=== PATIENT | female | born 1975 | race Caucasian/White ===

== ENCOUNTER 2016-12-26 08:37 | Inpatient (IN) | payer BC ==
[~2016-12-26] VITALS: Ht 157.5 cm; Wt 47.6 kg
[2016-12-26] VITALS (7 sets, daily range): BP systolic 95–134; BP diastolic 60–79
[~2016-12-26 08:37] MED LIST: AZITHROMYCIN250 MG ORAL; CRESTOR10 M1 ORAL
[2016-12-26] MEDS ORDERED: NKM (08:48)
[2016-12-26] MEDS ORDERED: LORazepam Inj 2mg/ml 1ml IV ONE (09:00)
[2016-12-26] MEDS ORDERED: DiphenhydrAMINE 50mg/ml Inj IVP ONE (09:00)
[2016-12-26] MEDS ORDERED: Metoclopramide 10mg/2ml Inj IVP ONE (09:00)
--- NOTE | 2016-12-26 09:03 | Emergency Room Report ---
History of Present Illness General Chief Complaint: Nausea, Vomiting, and Diarrhea Source: Patient Present Illness HPI Patient presents with complaints of increased vomiting She has had several episodes of vomiting for the past 2 days Denies any diarrhea she has discomfort across the bilateral upper abdomen as well Denies any fevers She also however feels her kidneys are hurting Patient had a recent significant traveling including out of the country in [place] Denies any rash Denies any fall or trauma With the increased vomiting and nausea patient presents to the ER bilateral upper abdomen pain is described as 5/10 cramping in nature Allergies: Coded Allergies: PEANUT (Unverified Allergy, Unknown, 07/26/14) SESAME OIL (Unverified Allergy, Unknown, 12/26/16) Patient History Past Medical History: see triage record Pertinent Family History: none Last Menstrual Period: 12/19/2016 Now: No : 0 Para: 0 Reviewed Nursing Documentation: PMH: Agreed, PSxH: Agreed Nursing Documentation-PMH Hx Cardiac Problems: Yes - high chol Hx Cancer: Yes - lymph nodes Review of Systems All Other Systems: negative except mentioned in HPI Physical Exam Vital Signs Date Time Temp Pulse Resp B/P Pulse Ox O2 Delivery O2 Flow Rate FiO2 12/26/16 08:42 97.2 131 24 118/75 99 Room Air Sp02 EP Interpretation: reviewed, normal General Appearance: mild distress - Patient appeared anxious Head: normocephalic, atraumatic Eyes: bilateral eye EOMI, bilateral eye PERRL ENT: hearing grossly normal, normal pharynx, TMs + canals normal, uvula midline Neck: full range of motion, supple, no meningismus, no bony tend Respiratory: lungs clear, normal breath sounds, no rhonchi, no respiratory distress, no retraction, no accessory muscle use Cardiovascular #1: normal peripheral pulses, regular rate, rhythm, no edema, no gallop, no JVD, no murmur Gastrointestinal: normal bowel sounds, soft, no mass, no organomegaly, non- distended, no guarding, no hernia, no pulsatile mass, no rebound, tenderness - Mainly epigastric mild discomfort right upper quadrant Genitourinary: no CVA tenderness Musculoskeletal: normal inspection Neurologic: oriented x3, responsive, human services instructor III-XII nml as tested, motor strength/ tone normal, sensory intact Psychiatric: mood/affect normal Skin: normal color, no rash, warm/dry, palpation normal Lymphatic: normal inspection, no adenopathy Medical Decision Making Diagnostic Impression: Primary Impression: Nausea, vomiting, and diarrhea Additional Impressions: Acute pancreatitis Abdominal pain Gallstone pancreatitis ER Course With the patient's history and examination, multiple differentials considered, including but not limited to , ectopic , ovarian torsion, gastritis, cholecystitis, pancreatitis, appendicitis Patient's blood work reveals elevated liver function test, along with increased lipase Ultrasound did not show any obvious stones The total bili is also not significantly elevated recent question of the etiology of the significantly elevated lipase Differentials such as carcinoma also considered Patient had a GI consultation performed the emergency room Has done significantly better with acute intervention and admitted for further care, Labs Test 12/26/16 09:04 12/26/16 11:58 12/27/16 05:45 White Blood Count 8.5 K/UL (4.8-10.8) 5.0 K/UL (4.8-10.8) Red Blood Count 4.33 M/UL (4.20-5.40) 3.37 M/UL (4.20-5.40) Hemoglobin 15.0 G/DL (12.0-16.0) 11.6 G/DL (12.0-16.0) Hematocrit 48.0 % (37.0-47.0) 35.2 % (37.0-47.0) Mean Corpuscular Volume 111 FL (80-99) 105 FL (80-99) Mean Corpuscular Hemoglobin 34.6 PG (27.0-31.0) 34.6 PG (27.0-31.0) Mean Corpuscular Hemoglobin Concent 31.3 G/DL (32.0-36.0) 33.0 G/DL (32.0-36.0) Red Cell Distribution Width 11.3 % (11.6-14.8) 10.5 % (11.6-14.8) Platelet Count 88 K/UL (150-450) 53 K/UL (150-450) Mean Platelet Volume 6.7 FL (6.5-10.1) 9.4 FL (6.5-10.1) Neutrophils (%) (Auto) % (45.0-75.0) % (45.0-75.0) Lymphocytes (%) (Auto) % (20.0-45.0) % (20.0-45.0) Monocytes (%) (Auto) % (1.0-10.0) % (1.0-10.0) Eosinophils (%) (Auto) % (0.0-3.0) % (0.0-3.0) Basophils (%) (Auto) % (0.0-2.0) % (0.0-2.0) Differential Total Cells Counted 100 Neutrophils % (Manual) 89 % (45-75) Lymphocytes % (Manual) 7 % (20-45) Monocytes % (Manual) 2 % (1-10) Eosinophils % (Manual) 2 % (0-3) Basophils % (Manual) 0 % (0-2) Band Neutrophils 0 % (0-8) Platelet Estimate Decreased Platelet Morphology Normal Red Blood Cell Morphology Normal Sodium Level 136 mEQ/L (135-145) Potassium Level 4.7 mEQ/L (3.4-4.9) Chloride Level 86 mEQ/L (98-107) Carbon Dioxide Level 7 mEQ/L (20-30) Anion Gap 43 (5-15) Blood Urea Nitrogen 17 mg/dL (7-23) Creatinine 1.3 mg/dL (0.5-0.9) Estimat Glomerular Filtration Rate 45.6 mL/min (>60) Glucose Level 199 mg/dL (74-106) Calcium Level 9.7 mg/dL (8.6-10.2) Total Bilirubin 0.9 mg/dL (0.0-1.2) Aspartate Amino Transf (AST/SGOT) 212 U/L (5-40) Alanine Aminotransferase (ALT/SGPT) 128 U/L (3-33) Alkaline Phosphatase 174 U/L (35-104) Total Protein 9.8 g/dL (6.6-8.7) Albumin 5.5 g/dL (3.5-5.2) Globulin 4.3 g/dL Albumin/Globulin Ratio 1.2 (1.0-2.7) Triglycerides Level 263 mg/dL (< 150) Cholesterol Level 382 mg/dL (< 200) LDL Cholesterol 195 mg/dL (60-99) HDL Cholesterol 134 mg/dL (> 60) Cholesterol/HDL Ratio 2.9 (3.3-4.4) Lipase > 3000 U/L (< 60) Human Chorionic Gonadotropin, Quant < 1 mIU/mL Urine Color Yellow Urine Appearance Clear Urine pH 5 (4.5-8.0) Urine Specific [place] 1.020 (1.005-1.035) Urine Protein 2+ (NEGATIVE) Urine Glucose (UA) 3+ (NEGATIVE) Urine Ketones 4+ (NEGATIVE) Urine Occult Blood 4+ (NEGATIVE) Urine Nitrite Negative (NEGATIVE) Urine Bilirubin Negative (NEGATIVE) Urine Urobilinogen Normal MG/DL (0.0-1.0) Urine Leukocyte Esterase Negative (NEGATIVE) Urine RBC 5-10 /HPF (0 - 2) Urine WBC 0-2 /HPF (0 - 2) Urine Squamous Epithelial Cells Few /LPF (NONE/OCC) Urine Bacteria Occasional /HPF (NONE) Urine Opiates Screen Negative (NEGATIVE) Urine Barbiturates Screen Negative (NEGATIVE) Phencyclidine (PCP) Screen Negative (NEGATIVE) Urine Amphetamines Screen Negative (NEGATIVE) Urine Benzodiazepines Screen Negative (NEGATIVE) Urine Cocaine Screen Negative (NEGATIVE) Urine Marijuana (THC) Screen Negative (NEGATIVE) Activated Partial Thromboplast Time 28 SEC (23-33) Hemoglobin A1c 4.4 % (< 6.0) Carcinoembryonic Antigen 2.2 ng/mL EKG Diagnostic Results Rate: tachycardiac Rhythm: NSR ST Segments: no acute changes Rhythm Strip Diag. Results EP Interpretation: yes Rate: 99 Rhythm: NSR, no PVC's, no ectopy Chest X-Ray Diagnostic Results EP Interpretation: Yes Findings: no consolidation, no effusion, no pneumothorax Number of Views: 1 CT/MRI/US Diagnostic Results CT/MRI/US Diagnostic Results : Impression Abdominal ultrasound: Liver demonstrates diffuse increased echogenicity consistent with diffuse hepatocellular disease, most likely fatty changes Last Vital Signs Date Time Temp Pulse Resp B/P Pulse Ox O2 Delivery O2 Flow Rate FiO2 12/26/16 08:42 97.2 131 24 118/75 99 Room Air Status: improved Disposition: ADMITTED INPATIENT Condition: Serious Referrals: NOT CHOSEN RUBEN/,REFERRING (PCP) ULISES SOTELO D.O. Dec 26, 2016 09:03
[2016-12-26 09:33] LABS: MEAN CORPUSCULAR HEMOGLOBIN 34.6 PG (27.0-31.0); MEAN CORPUSCULAR HGB CONC 31.3 G/DL (32.0-36.0); MEAN CORPUSCULAR VOLUME 111 FL (80-99); MEAN PLATELET VOLUME 6.7 FL (6.5-10.1); PLATELET COUNT 88 K/UL (150-450); RED BLOOD COUNT 4.33 M/UL (4.20-5.40); RED CELL DISTRIBUTION WIDTH 11.3 % (11.6-14.8); WHITE BLOOD COUNT 8.5 K/UL (4.8-10.8)
[2016-12-26 09:43] LABS: ALANINE AMINOTRANSFERASE 128 U/L (3-33); ALBUMIN/GLOBULIN RATIO 1.2 (1.0-2.7); ANION GAP 43 (5-15); ASPARTATE AMINO TRANSFERASE 212 U/L (5-40); CALCIUM 9.7 mg/dL (8.6-10.2); CHLORIDE 86 mEQ/L (98-107); CREATININE 1.3 mg/dL (0.5-0.9); GLOMERULAR FILTRATION RATE 45.6 mL/min (>60); HEMOLYSIS 7; POTASSIUM 4.7 mEQ/L (3.4-4.9); SODIUM 136 mEQ/L (135-145); TOTAL PROTEIN 9.8 g/dL (6.6-8.7)
[2016-12-26 09:53] LABS: CARBON DIOXIDE 7 mEQ/L (20-30)
[2016-12-26 10:32] LABS: BAND NEUTROPHILS % (MANUAL) 0 % (0-8); BASOPHILS % (MANUAL) 0 % (0-2); EOSINOPHILS % (MANUAL) 2 % (0-3); LYMPHOCYTES % (MANUAL) 7 % (20-45); NEUTROPHILS % (MANUAL) 89 % (45-75); PLATELET ESTIMATE DECREASED; PLATELET MORPHOLOGY NORMAL; TOTAL CELLS COUNTED 100
[2016-12-26 10:35] LABS: LIPASE > 3000 U/L (< 60)
[2016-12-26] MEDS ORDERED: Piperacillin/Tazobactam 3.375 GM in NS 110 ML IVPB ONE (11:15)
[2016-12-26] MEDS ORDERED: Zosyn 3.375gm inj ONE (11:33)
[2016-12-26 12:52] LABS: APPEARANCE,URINE CLEAR; KETONES,URINE 4+ (NEGATIVE); LEUKOCYTE ESTERASE ,URINE NEGATIVE (NEGATIVE); NITRITE,URINE NEGATIVE (NEGATIVE); PH,URINE 5 (4.5-8.0); PROTEIN,URINE 2+ (NEGATIVE); UROBILINOGEN,URINE NORMAL MG/DL (0.0-1.0)
[2016-12-26 13:15] LABS: BACTERIA,URINE OCCASIONAL /HPF; SQUAMOUS EPITHELIAL CELL,UR FEW /LPF (NONE/OCC); WBC,URINE 0-2 /HPF (0 - 2)
[2016-12-26] MEDS ORDERED: Nitroglycerin Subl 0.4mg tab (Bottle Of 25) SL PRN (13:15)
[2016-12-26] MEDS ORDERED: Mylanta II UD 30ml ORAL PRN (13:15)
[2016-12-26] MEDS ORDERED: Miralax 17gm pkt ORAL PRN (13:15)
[2016-12-26 13:40] LABS: CHOLESTEROL/HDL RATIO 2.9 (3.3-4.4)
--- NOTE | 2016-12-26 14:09 | GI Initial Consult Note ---
History of Present Illness General Date patient seen: Dec 26, 2016 Time patient seen: 13:55 Reason for Hospitalization: Nausea, Vomiting, and Diarrhea Referring physician: JEREMIAH MARTIN Reason for Consultation: PANCREATITIS Present Illness HPI Patient presents with complaints of increased vomiting She has had several episodes of vomiting for the past 2 days Denies any diarrhea she has discomfort across the bilateral upper abdomen as well Denies any fevers She also however feels her kidneys are hurting Patient had a recent significant traveling including out of the country in [place] Denies any rash Denies any fall or trauma With the increased vomiting and nausea patient presents to the ER bilateral upper abdomen pain is described as 5/10 cramping in nature. GI CONSULT: HPI as noted above. GI consulted for pancreatitis. Pt seen on floor, A&Ox4 anxious from pain. C/o of generalized abdominal pain sharp in nature with radiation to the back. No active s/sx of N/V at this time. Denies any diarrhea. Abdomen U/S taken. She presents today with abnormal LFTs, extreme lipase elevation > 3000, and elevated triglyceride levels. No prior history of any endoscopic procedures. Home Meds Active Scripts Azithromycin* (ZITHROMAX*) 250 Mg Tablet, 250 MG ORAL DAILY for 5 Days, TAB Prov:RENATA WHITTINGTON P.A. 07/26/14 Reported Medications No Known Medications* (NKM - No Known Medications*) ., 0 ., 0 Refills 12/26/16 Rosuvastatin Calcium (Crestor) 10 Mg Tab, MG ORAL DAILY, TAB 07/26/14 Med list reviewed/reconciled: Yes Allergies: Coded Allergies: PEANUT (Unverified Allergy, Unknown, 07/26/14) Patient History History Provided By: Patient, Medical Record PMH Narrative Past Medical History: see triage record Pertinent Family History: colon CA, breast CA Last Menstrual Period: 12/19/2016 Now: No : 0 Para: 0 Reviewed Nursing Documentation: PMH: Agreed, PSxH: Agreed Nursing Documentation-PMH Hx Cardiac Problems: Yes - high chol Hx Cancer: Yes - lymph nodes Social History: Reports: alcohol use - last drink x 2 days, glass of wine, drug use - denies, smoking - social Review of Systems All Other Systems: negative except mentioned in HPI Physical Exam Vital Signs Date Time Temp Pulse Resp B/P Pulse Ox O2 Delivery O2 Flow Rate FiO2 12/26/16 08:42 97.2 131 24 118/75 99 Room Air Sp02 EP Interpretation: reviewed Labs Laboratory Tests Test 12/26/16 09:04 12/26/16 11:58 White Blood Count 8.5 K/UL (4.8-10.8) Red Blood Count 4.33 M/UL (4.20-5.40) Hemoglobin 15.0 G/DL (12.0-16.0) Hematocrit 48.0 % (37.0-47.0) H Mean Corpuscular Volume 111 FL (80-99) H Mean Corpuscular Hemoglobin 34.6 PG (27.0-31.0) H Mean Corpuscular Hemoglobin Concent 31.3 G/DL (32.0-36.0) L Red Cell Distribution Width 11.3 % (11.6-14.8) L Platelet Count 88 K/UL (150-450) L Mean Platelet Volume 6.7 FL (6.5-10.1) Neutrophils (%) (Auto) % (45.0-75.0) Lymphocytes (%) (Auto) % (20.0-45.0) Monocytes (%) (Auto) % (1.0-10.0) Eosinophils (%) (Auto) % (0.0-3.0) Basophils (%) (Auto) % (0.0-2.0) Differential Total Cells Counted 100 Neutrophils % (Manual) 89 % (45-75) H Lymphocytes % (Manual) 7 % (20-45) L Monocytes % (Manual) 2 % (1-10) Eosinophils % (Manual) 2 % (0-3) Basophils % (Manual) 0 % (0-2) Band Neutrophils 0 % (0-8) Platelet Estimate Decreased L Platelet Morphology Normal Red Blood Cell Morphology Normal Sodium Level 136 mEQ/L (135-145) Potassium Level 4.7 mEQ/L (3.4-4.9) Chloride Level 86 mEQ/L (98-107) L Carbon Dioxide Level 7 mEQ/L (20-30) *L Anion Gap 43 (5-15) H Blood Urea Nitrogen 17 mg/dL (7-23) Creatinine 1.3 mg/dL (0.5-0.9) H Estimat Glomerular Filtration Rate 45.6 mL/min (>60) Glucose Level 199 mg/dL (74-106) H Calcium Level 9.7 mg/dL (8.6-10.2) Total Bilirubin 0.9 mg/dL (0.0-1.2) Aspartate Amino Transf (AST/SGOT) 212 U/L (5-40) H Alanine Aminotransferase (ALT/SGPT) 128 U/L (3-33) H Alkaline Phosphatase 174 U/L (35-104) H Total Protein 9.8 g/dL (6.6-8.7) H Albumin 5.5 g/dL (3.5-5.2) H Globulin 4.3 g/dL Albumin/Globulin Ratio 1.2 (1.0-2.7) Triglycerides Level 263 mg/dL (< 150) H Cholesterol Level 382 mg/dL (< 200) H LDL Cholesterol 195 mg/dL (60-99) H HDL Cholesterol 134 mg/dL (> 60) H Cholesterol/HDL Ratio 2.9 (3.3-4.4) L Lipase > 3000 U/L (< 60) H Human Chorionic Gonadotropin, Quant < 1 mIU/mL Urine Color Yellow Urine Appearance Clear Urine pH 5 (4.5-8.0) Urine Specific [place] 1.020 (1.005-1.035) Urine Protein 2+ (NEGATIVE) H Urine Glucose (UA) 3+ (NEGATIVE) H Urine Ketones 4+ (NEGATIVE) H Urine Occult Blood 4+ (NEGATIVE) H Urine Nitrite Negative (NEGATIVE) Urine Bilirubin Negative (NEGATIVE) Urine Urobilinogen Normal MG/DL (0.0-1.0) Urine Leukocyte Esterase Negative (NEGATIVE) Urine RBC 5-10 /HPF (0 - 2) H Urine WBC 0-2 /HPF (0 - 2) Urine Squamous Epithelial Cells Few /LPF (NONE/OCC) Urine Bacteria Occasional /HPF (NONE) General Appearance: well appearing, no apparent distress, alert, thin, other - anxious Head: normocephalic EENT: normal ENT inspection Neck: full range of motion, supple Respiratory: normal breath sounds, no respiratory distress Cardiovascular: normal peripheral pulses, normal rate, regularly irregular Gastrointestinal: normal inspection, soft, tenderness - generalized Rectal: deferred Musculoskeletal: normal inspection Neurologic: normal inspection, alert, oriented x3, responsive Psychiatric: normal inspection, judgement/insight normal, memory normal Skin: normal inspection, normal color, no rash, warm/dry Lymphatic: normal inspection, no adenopathy Current Medications Current Medications Medications (Trade) Dose Ordered Sig/Huma Route PRN Reason Start Time Stop Time Status Last Admin Dose Admin Acetaminophen (Tylenol) 650 mg Q4H PRN ORAL T>100.5 12/26/16 13:15 01/25/17 13:14 Al Hydroxide/Mg Hydroxide (Mylanta II) 30 ml Q6H PRN ORAL dyspepsia 12/26/16 13:15 01/25/17 13:14 Dextrose STAT PRN IV Hypoglycemia 12/26/16 13:15 01/25/17 13:14 Dextrose/Sodium Chloride (D5 0.45% NS) 1,000 ml @ 75 mls/hr [id number] IV 12/26/16 14:00 01/25/17 13:59 Diphenhydramine HCl (Benadryl) 25 mg Q6H PRN ORAL Itching/Pruritis 12/26/16 13:15 01/25/17 13:14 Heparin Sodium (Porcine) (Heparin 5000 units/ml) 5,000 units EVERY 12 HOURS SUBQ 12/27/16 09:00 01/26/17 08:59 Morphine Sulfate (Morphine Sulfate) 2 mg Q4H PRN IVP Severe Pain (Pain Scale 7-10) 12/26/16 13:15 01/02/17 13:14 Nitroglycerin (Ntg) 0.4 mg Q5M X 3 DOSES PRN SL Prn Chest Pain 12/26/16 13:15 01/25/17 13:14 Ondansetron HCl (Zofran) 4 mg Q6H PRN IVP Nausea & Vomiting 12/26/16 13:15 01/25/17 13:14 Piperacillin Sod/ Tazobactam Sod/ Sodium Chloride (Zosyn/Sodium Chloride) 110 ml @ 27.5 mls/hr EVERY 8 HOURS IVPB 12/26/16 19:00 01/02/17 18:59 Polyethylene Glycol (Miralax) 17 gm HSPRN PRN ORAL Constipation 12/26/16 13:15 01/25/17 13:14 Temazepam (Restoril) 15 mg HSPRN PRN ORAL Insomnia 12/26/16 21:00 01/02/17 20:59 GI: Plan Problems: (1) Acute pancreatitis (2) Abdominal pain (3) High triglycerides (4) Malnutrition Plan elevated triglyceride >> 263 H elevated lipase >> +3000 HCG negative initial impression: acute pancreatitis 2/2 elevated triglycerides fu abdominal U/S maintain NPO + IVFs, ice chips okay ordered CEA, utox, HgA1C lipid panel reviewed monitor LFTs dietary consult H2 pain mgmt abx Discussed with Dr. Holt. Thank you for referring this patient, we will follow. Yaritza Marroquin N.P. Dec 26, 2016 14:09
[2016-12-26] MEDS: Morphine Sulfate 2mg/ml Inj IVP PRN ×3 (14:14→23:23)
[2016-12-26] MEDS: D5 1/2NS 1,000 ML IV SCH (14:14)
[2016-12-26] MEDS: Piperacillin/Tazobactam 3.375 GM in NS 110 ML IVPB SCH (18:23)
[2016-12-26] MEDS ORDERED: Famotidine 20 MG/ 2ML VIAL IVP SCH (21:00)
[2016-12-27] MEDS: Morphine Sulfate 2mg/ml Inj IVP PRN ×3 (03:29→16:59)
[2016-12-27 04:00] VITALS: BP 107/73
[2016-12-27] MEDS: Piperacillin/Tazobactam 3.375 GM in NS 110 ML IVPB SCH ×3 (05:04→21:30)
[2016-12-27] MEDS: D5 1/2NS 1,000 ML IV SCH ×2 (05:04→16:00)
[2016-12-27 07:25] LABS: MEAN CORPUSCULAR HEMOGLOBIN 34.6 PG (27.0-31.0); MEAN CORPUSCULAR VOLUME 105 FL (80-99); MEAN PLATELET VOLUME 9.4 FL (6.5-10.1); PLATELET COUNT 53 K/UL (150-450); RED BLOOD COUNT 3.37 M/UL (4.20-5.40); RED CELL DISTRIBUTION WIDTH 10.5 % (11.6-14.8)
[2016-12-27 08:00] VITALS: BP 102/66
[2016-12-27 08:51] LABS: INR 1.1 (0.9-1.1); PROTHROMBIN TIME 11.2 SEC (9.30-11.50)
[2016-12-27] MEDS ORDERED: Heparin 5000 units/ml inj SUBQ SCH (09:00)
[2016-12-27 11:00] LABS: BAND NEUTROPHILS % (MANUAL) 0 % (0-8); BASOPHILS % (MANUAL) 0 % (0-2); EOSINOPHILS % (MANUAL) 1 % (0-3); LYMPHOCYTES % (MANUAL) 16 % (20-45); NEUTROPHILS % (MANUAL) 80 % (45-75); PLATELET ESTIMATE DECREASED; PLATELET MORPHOLOGY NORMAL; TOTAL CELLS COUNTED 100
[2016-12-27 11:01] LABS: HYPOCHROMASIA 1+; MACROCYTES 1+
--- NOTE | 2016-12-27 11:08 | Consultation ---
History of Present Illness General Date patient seen: Dec 27, 2016 Chief Complaint: Nausea, Vomiting, and Diarrhea Referring physician: dr Gates Reason for Consultation: PANCREATITIS Present Illness HPI 41 year old female without any pmhx presented to ER with the increased vomiting and nausea, bilateral upper abdomen pain, cramping. She has had several episodes of vomiting for the past 2 days Denies any diarrhea she has discomfort across the bilateral upper abdomen as well. She was diagnosed to have acute pancreatitis and admitted for further care. Allergies: Coded Allergies: PEANUT (Unverified Allergy, Unknown, 07/26/14) SESAME OIL (Unverified Allergy, Unknown, 12/26/16) Medication History Scheduled Azithromycin* (Zithromax*), 250 MG ORAL DAILY No Known Medications* (NKM - No Known Medications*), 0 ., (Reported) Rosuvastatin Calcium (Crestor), MG ORAL DAILY, (Reported) Patient History Healthcare decision maker Resuscitation status Advanced Directive on File Past Medical/Surgical History Past Medical/Surgical History: (1) High triglycerides Review of Systems Gastrointestinal: Reports: abdominal pain, nausea, vomiting All Other Systems: negative except mentioned in HPI Physical Exam General Appearance: WD/WN, alert Lines, tubes and drains: peripheral HEENT: atraumatic Neck: non-tender, supple Respiratory/Chest: chest wall non-tender, normal breath sounds Cardiovascular/Chest: normal peripheral pulses, normal rate Last 24 Hour Vital Signs Date Time Temp Pulse Resp B/P Pulse Ox O2 Delivery O2 Flow Rate FiO2 12/27/16 08:00 97.5 66 16 102/66 99 Room Air 12/27/16 04:00 70 12/27/16 04:00 96.8 67 20 107/73 98 Room Air 12/27/16 00:00 71 12/26/16 23:42 98.1 77 20 111/70 98 Room Air 12/26/16 20:00 98.2 80 20 95/63 99 Room Air 12/26/16 20:00 81 12/26/16 16:00 95 12/26/16 16:00 99.0 94 20 113/60 100 Room Air 12/26/16 14:00 97.6 106 18 132/71 100 Room Air 12/26/16 13:45 107 12/26/16 13:22 97.2 104 23 110/75 100 Room Air 12/26/16 12:32 97.2 104 23 110/75 100 Room Air Intake and Output 12/26/16 12/27/16 19:00 07:00 Intake Total 2300 ml 887.5 ml Balance 2300 ml 887.5 ml Intake IV Total 300 ml 887.5 ml Other 2000 ml # Voids 1 Laboratory Tests Test 12/26/16 11:58 12/27/16 05:45 12/27/16 09:00 Urine Color Yellow Urine Appearance Clear Urine pH 5 (4.5-8.0) Urine Specific [place] 1.020 (1.005-1.035) Urine Protein 2+ (NEGATIVE) H Urine Glucose (UA) 3+ (NEGATIVE) H Urine Ketones 4+ (NEGATIVE) H Urine Occult Blood 4+ (NEGATIVE) H Urine Nitrite Negative (NEGATIVE) Urine Bilirubin Negative (NEGATIVE) Urine Urobilinogen Normal MG/DL (0.0-1.0) Urine Leukocyte Esterase Negative (NEGATIVE) Urine RBC 5-10 /HPF (0 - 2) H Urine WBC 0-2 /HPF (0 - 2) Urine Squamous Epithelial Cells Few /LPF (NONE/OCC) Urine Bacteria Occasional /HPF (NONE) Urine Opiates Screen Negative (NEGATIVE) Urine Barbiturates Screen Negative (NEGATIVE) Phencyclidine (PCP) Screen Negative (NEGATIVE) Urine Amphetamines Screen Negative (NEGATIVE) Urine Benzodiazepines Screen Negative (NEGATIVE) Urine Cocaine Screen Negative (NEGATIVE) Urine Marijuana (THC) Screen Negative (NEGATIVE) White Blood Count 5.0 K/UL (4.8-10.8) Red Blood Count 3.37 M/UL (4.20-5.40) L Hemoglobin 11.6 G/DL (12.0-16.0) L Hematocrit 35.2 % (37.0-47.0) L Mean Corpuscular Volume 105 FL (80-99) H Mean Corpuscular Hemoglobin 34.6 PG (27.0-31.0) H Mean Corpuscular Hemoglobin Concent 33.0 G/DL (32.0-36.0) Red Cell Distribution Width 10.5 % (11.6-14.8) L Platelet Count 53 K/UL (150-450) L Mean Platelet Volume 9.4 FL (6.5-10.1) Neutrophils (%) (Auto) % (45.0-75.0) Lymphocytes (%) (Auto) % (20.0-45.0) Monocytes (%) (Auto) % (1.0-10.0) Eosinophils (%) (Auto) % (0.0-3.0) Basophils (%) (Auto) % (0.0-2.0) Differential Total Cells Counted 100 Neutrophils % (Manual) 80 % (45-75) H Lymphocytes % (Manual) 16 % (20-45) L Monocytes % (Manual) 3 % (1-10) Eosinophils % (Manual) 1 % (0-3) Basophils % (Manual) 0 % (0-2) Band Neutrophils 0 % (0-8) Platelet Estimate Decreased L Platelet Morphology Normal Hypochromasia 1+ Macrocytosis 1+ Erythrocyte Sedimentation Rate 40 MM/HR (0-20) H Prothrombin Time 11.2 SEC (9.30-11.50) Prothromb Time International Ratio 1.1 (0.9-1.1) Activated Partial Thromboplast Time 28 SEC (23-33) Hemoglobin A1c 4.4 % (< 6.0) Iron Level 115 ug/dL (37-145) Total Iron Binding Capacity 239 ug/dL (250-400) L Percent Iron Saturation 48 % (15-50) Unsaturated Iron Binding 124 ug/dL (112-346) Ferritin 567 ng/mL (13-150) H Ammonia 44 umol/L (11-51) Lactate Dehydrogenase 284 U/L (135-230) H Amylase Level 537 U/L (10-110) *H Lipase 1895 U/L (< 60) H Carcinoembryonic Antigen 2.2 ng/mL CA 19-9 Antigen 48.75 U/mL (< 37) H CA 125 Antigen Pending Hepatitis A IgM Antibody Pending Hepatitis B Surface Antigen Pending Hepatitis B Core IgM Antibody Pending Hepatitis C Antibody Pending HIV (1&2) Antibody Rapid Negative (NEGATIVE) Height (Feet): 5 Height (Inches): 2.00 Weight (Pounds): 105 Medications Current Medications Medications (Trade) Dose Ordered Sig/Huma Route PRN Reason Start Time Stop Time Status Last Admin Dose Admin Acetaminophen (Tylenol) 650 mg Q4H PRN ORAL T>100.5 12/26/16 13:15 01/25/17 13:14 Al Hydroxide/Mg Hydroxide (Mylanta II) 30 ml Q6H PRN ORAL dyspepsia 12/26/16 13:15 01/25/17 13:14 Dextrose STAT PRN IV Hypoglycemia 12/26/16 13:15 01/25/17 13:14 Dextrose/Sodium Chloride (D5 0.45% NS) 1,000 ml @ 75 mls/hr [id number] IV 12/26/16 14:00 01/25/17 13:59 12/27/16 05:04 Diphenhydramine HCl (Benadryl) 25 mg Q6H PRN ORAL Itching/Pruritis 12/26/16 13:15 01/25/17 13:14 Famotidine (Pepcid I.v.) 20 mg QHS IVP 12/26/16 21:00 01/25/17 20:59 12/26/16 20:04 Heparin Sodium (Porcine) (Heparin 5000 units/ml) 5,000 units EVERY 12 HOURS SUBQ 12/27/16 09:00 01/26/17 08:59 Morphine Sulfate (Morphine Sulfate) 2 mg Q4H PRN IVP Severe Pain (Pain Scale 7-10) 12/26/16 13:15 01/02/17 13:14 12/27/16 07:54 Nitroglycerin (Ntg) 0.4 mg Q5M X 3 DOSES PRN SL Prn Chest Pain 12/26/16 13:15 01/25/17 13:14 Ondansetron HCl (Zofran) 4 mg Q6H PRN IVP Nausea & Vomiting 12/26/16 13:15 01/25/17 13:14 12/27/16 03:35 Piperacillin Sod/ Tazobactam Sod/ Sodium Chloride (Zosyn/Sodium Chloride) 110 ml @ 27.5 mls/hr EVERY 8 HOURS IVPB 12/26/16 19:00 01/02/17 18:59 12/27/16 05:04 Polyethylene Glycol (Miralax) 17 gm HSPRN PRN ORAL Constipation 12/26/16 13:15 01/25/17 13:14 Temazepam (Restoril) 15 mg HSPRN PRN ORAL Insomnia 12/26/16 21:00 01/02/17 20:59 Assessment/Plan Problem List: (1) Acute pancreatitis ICD Codes: K85.90 - Acute pancreatitis without necrosis or infection, unspecified SNOMED: 966896438 (2) High triglycerides ICD Codes: E78.1 - Pure hyperglyceridemia SNOMED: 163544677 (3) Nausea, vomiting, and diarrhea ICD Codes: R11.2 - Nausea with vomiting, unspecified; R19.7 - Diarrhea, unspecified SNOMED: 7848413 Assessment/Plan NPO symptomatic treatment f/u lipase level IV fluids check electrolytes JEREMIAH PATTERSON Dec 27, 2016 11:08
[2016-12-27 11:21] VITALS: BP 101/67
--- NOTE | 2016-12-27 12:09 | History and Physical Report ---
DATE OF ADMISSION: 12/26/2016 TIME SEEN: At 8.00 a.m. CONSULTANTS: 1. Villa Holt M.D. 2. Adriel Blankenship M.D. CHIEF COMPLAINT: Abdominal pain, nausea, vomiting x2 days, gallstone pancreatitis. BRIEF HISTORY: This is a 41-year-old female who lives at home presents to [facility] with above-mentioned diagnoses, admitted to medical floor for further treatment. Currently feeling little bit and slight abdominal discomfort. No complaints. PAST MEDICAL HISTORY: Includes nothing. PAST SURGICAL HISTORY: Ankle, foot, and knee. MEDICATIONS: Include heparin, temazepam, famotidine, Zosyn, Tylenol, morphine, MiraLAX, Zofran, Benadryl, Mylanta. ALLERGIES: Denies. SOCIAL HISTORY: Positive smoke. Positive alcohol. No intravenous drug use. FAMILY HISTORY: Noncontributory. REVIEW OF SYSTEMS: No chest pain/shortness of breath. Slight nausea, vomiting. No diarrhea. PHYSICAL EXAMINATION: GENERAL: Calm in bed, alert and oriented x3. No acute distress. VITAL SIGNS: Shows temperature 96 degrees, pulse 67, respirations 20, and blood pressure 107/73. CARDIOVASCULAR: No murmur. LUNGS: Poor air exchange. ABDOMEN: Bowel sounds are positive. Soft, but slight tender. No guarding. No rigidity. No rebound. EXTREMITIES: No cyanosis, clubbing, or edema. NEUROLOGIC: Cranial nerves II through XII are grossly intact. Deep tendon reflexes are 2+. Muscle strength is 5/5. LABORATORY DATA: Platelets are 88,000 and otherwise normal. BMP shows CO2 7, creatinine is 1.3, glucose 199. ALT is 128, AST 212, triglycerides 263, lipase greater than 3000. PTT is 28. Urine toxicology is negative. Urinalysis shows 4+ occult blood, 3+ glucose otherwise, and 2+ protein. ASSESSMENT: 1. Gallstone pancreatitis. 2. Thrombocytopenia. 3. Nausea and vomiting. 4. Diabetes. PLAN: Continue premedications. NPO, IV fluids, pain control, and dietary evaluation. Dr. Holt, Dr. Blankenship, Chandana to consult. Simon Gates D.O. DR: IRLANDA JOB#: [id number] CC:
[2016-12-27] MEDS ORDERED: Nitroglycerin Subl 0.4mg tab (Bottle Of 25) SL PRN (14:45)
--- NOTE | 2016-12-27 15:01 | Infectious Diseases Prog Note ---
Assessment/Plan Problems: (1) Acute pancreatitis Assessment & Plan: due to high cholesterol, need CT scan to rule out necrosis or phlegmon, will stop zosyn if negative CT abdomen for necrosis or phlegmon, CT ABD is pending (2) Hyperlipidemia Assessment & Plan: suspect familial, recommend endocrinology consult , and to treat hyperlipidemia to prevent recurrent episode of pancreatitis (3) Nausea, vomiting, and diarrhea Assessment & Plan: due to number one, continue supportive care and pain management (4) Abdominal pain Assessment & Plan: due to pancreatitis , continue pain management as per primary Subjective Allergies: Coded Allergies: PEANUT (Unverified Allergy, Unknown, 07/26/14) SESAME OIL (Unverified Allergy, Unknown, 12/26/16) Objective Vital Signs Last 24 Hour Vital Signs Date Time Temp Pulse Resp B/P Pulse Ox O2 Delivery O2 Flow Rate FiO2 12/27/16 11:21 97.9 64 16 101/67 99 Room Air 12/27/16 08:00 60 12/27/16 08:00 97.5 66 16 102/66 99 Room Air 12/27/16 04:00 70 12/27/16 04:00 96.8 67 20 107/73 98 Room Air 12/27/16 00:00 71 12/26/16 23:42 98.1 77 20 111/70 98 Room Air 12/26/16 20:00 98.2 80 20 95/63 99 Room Air 12/26/16 20:00 81 12/26/16 16:00 95 12/26/16 16:00 99.0 94 20 113/60 100 Room Air Height (Feet): 5 Height (Inches): 2.00 Weight (Pounds): 105 Laboratory Tests Test 12/27/16 05:45 12/27/16 09:00 White Blood Count 5.0 K/UL (4.8-10.8) Red Blood Count 3.37 M/UL (4.20-5.40) L Hemoglobin 11.6 G/DL (12.0-16.0) L Hematocrit 35.2 % (37.0-47.0) L Mean Corpuscular Volume 105 FL (80-99) H Mean Corpuscular Hemoglobin 34.6 PG (27.0-31.0) H Mean Corpuscular Hemoglobin Concent 33.0 G/DL (32.0-36.0) Red Cell Distribution Width 10.5 % (11.6-14.8) L Platelet Count 53 K/UL (150-450) L Mean Platelet Volume 9.4 FL (6.5-10.1) Neutrophils (%) (Auto) % (45.0-75.0) Lymphocytes (%) (Auto) % (20.0-45.0) Monocytes (%) (Auto) % (1.0-10.0) Eosinophils (%) (Auto) % (0.0-3.0) Basophils (%) (Auto) % (0.0-2.0) Differential Total Cells Counted 100 Neutrophils % (Manual) 80 % (45-75) H Lymphocytes % (Manual) 16 % (20-45) L Monocytes % (Manual) 3 % (1-10) Eosinophils % (Manual) 1 % (0-3) Basophils % (Manual) 0 % (0-2) Band Neutrophils 0 % (0-8) Platelet Estimate Decreased L Platelet Morphology Normal Hypochromasia 1+ Macrocytosis 1+ Erythrocyte Sedimentation Rate 40 MM/HR (0-20) H Prothrombin Time 11.2 SEC (9.30-11.50) Prothromb Time International Ratio 1.1 (0.9-1.1) Activated Partial Thromboplast Time 28 SEC (23-33) Hemoglobin A1c 4.4 % (< 6.0) Iron Level 115 ug/dL (37-145) Total Iron Binding Capacity 239 ug/dL (250-400) L Percent Iron Saturation 48 % (15-50) Unsaturated Iron Binding 124 ug/dL (112-346) Ferritin 567 ng/mL (13-150) H Ammonia 44 umol/L (11-51) Lactate Dehydrogenase 284 U/L (135-230) H Amylase Level 537 U/L (10-110) *H Lipase 1895 U/L (< 60) H Carcinoembryonic Antigen 2.2 ng/mL CA 19-9 Antigen 48.75 U/mL (< 37) H CA 125 Antigen Pending Hepatitis A IgM Antibody Pending Hepatitis B Surface Antigen Pending Hepatitis B Core IgM Antibody Pending Hepatitis C Antibody Pending HIV (1&2) Antibody Rapid Negative (NEGATIVE) Current Medications Medications (Trade) Dose Ordered Sig/Huma Route PRN Reason Start Time Stop Time Status Last Admin Dose Admin Acetaminophen (Tylenol) 650 mg Q4H PRN ORAL T>100.5 12/27/16 17:15 01/26/17 17:14 UNV Al Hydroxide/Mg Hydroxide (Mylanta II) 30 ml Q6H PRN ORAL dyspepsia 12/27/16 19:15 01/26/17 19:14 UNV Dextrose (Dextrose 50%) STAT PRN IV Hypoglycemia 12/28/16 13:15 01/27/17 13:14 UNV Dextrose/Sodium Chloride 1,000 ml @ 75 mls/hr [id number] IV 12/27/16 14:45 01/26/17 14:44 UNV Diphenhydramine HCl (Benadryl) 25 mg Q6H PRN ORAL Itching/Pruritis 12/27/16 19:15 01/26/17 19:14 UNV Famotidine (Pepcid I.v.) 20 mg QHS IVP 12/27/16 21:00 01/26/17 20:59 UNV Morphine Sulfate (Morphine Sulfate) 2 mg Q4H PRN IVP Severe Pain (Pain Scale 7-10) 12/27/16 17:15 01/03/17 17:14 UNV Nitroglycerin (Ntg) 0.4 mg Q5M X 3 DOSES PRN SL Prn Chest Pain 12/27/16 14:45 01/26/17 14:44 UNV Ondansetron HCl (Zofran) 4 mg Q6H PRN IVP Nausea & Vomiting 12/27/16 19:15 01/26/17 19:14 UNV Piperacillin Sod/ Tazobactam Sod/ Sodium Chloride (Zosyn/Sodium Chloride) 110 ml @ 27.5 mls/hr EVERY 8 HOURS IVPB 12/27/16 22:00 01/03/17 21:59 UNV Polyethylene Glycol (Miralax) 17 gm HSPRN PRN ORAL Constipation 12/28/16 13:15 01/27/17 13:14 UNV Temazepam (Restoril) 15 mg HSPRN PRN ORAL Insomnia 12/27/16 21:00 01/03/17 20:59 UNV Bryce Thorpe M.D. Dec 27, 2016 15:01
[2016-12-27 16:40] VITALS: BP 110/72
[2016-12-27] MEDS ORDERED: Tubing IV Secondary IV ONE (16:59)
[2016-12-27] MEDS ORDERED: D5 1/2NS 1000ml IV ONE (16:59)
[2016-12-27 17:25] LABS: INR 1.1 (0.9-1.1); PROTHROMBIN TIME 10.7 SEC (9.30-11.50)
[2016-12-27 17:50] LABS: ALANINE AMINOTRANSFERASE 74 U/L (3-33); ALBUMIN/GLOBULIN RATIO 1.3 (1.0-2.7); ANION GAP 22 (5-15); ASPARTATE AMINO TRANSFERASE 106 U/L (5-40); CALCIUM 9.3 mg/dL (8.6-10.2); CARBON DIOXIDE 20 mEQ/L (20-30); CHLORIDE 90 mEQ/L (98-107); CREATININE 0.6 mg/dL (0.5-0.9); GLOMERULAR FILTRATION RATE > 60 mL/min (>60); HEMOLYSIS 11; POTASSIUM 3.2 mEQ/L (3.4-4.9); SODIUM 132 mEQ/L (135-145); TOTAL PROTEIN 7.7 g/dL (6.6-8.7)
[2016-12-27 18:13] LABS: BILIRUBIN,DIRECT 0.3 mg/dL (0.1-0.3)
[2016-12-27] MEDS ORDERED: Mylanta II UD 30ml ORAL PRN (19:15)
[2016-12-27 20:00] VITALS: BP 100/71
--- NOTE | 2016-12-27 20:51 | General Progress Note ---
Assessment/Plan Assessment/Plan GI: Plan Problems: (1) Acute pancreatitis (2) Abdominal pain (3) High triglycerides (4) Malnutrition Recommendations NPO IVF Follow labs Subjective Allergies: Coded Allergies: PEANUT (Unverified Allergy, Unknown, 07/26/14) SESAME OIL (Unverified Allergy, Unknown, 12/26/16) Subjective Better less abd pain Objective Last 24 Hour Vital Signs Date Time Temp Pulse Resp B/P Pulse Ox O2 Delivery O2 Flow Rate FiO2 12/27/16 16:40 98.2 77 19 110/72 100 Room Air 12/27/16 11:21 97.9 64 16 101/67 99 Room Air 12/27/16 08:00 60 12/27/16 08:00 97.5 66 16 102/66 99 Room Air 12/27/16 04:00 70 12/27/16 04:00 96.8 67 20 107/73 98 Room Air 12/27/16 00:00 71 12/26/16 23:42 98.1 77 20 111/70 98 Room Air Intake and Output 12/26/16 12/27/16 19:00 07:00 Intake Total 2300 ml 887.5 ml Balance 2300 ml 887.5 ml Intake IV Total 300 ml 887.5 ml Other 2000 ml # Voids 1 Laboratory Tests 12/27/16 05:45: White Blood Count 5.0, Red Blood Count 3.37L, Hemoglobin 11.6L, Hematocrit 35.2L , Mean Corpuscular Volume 105H, Mean Corpuscular Hemoglobin 34.6H, Mean Corpuscular Hemoglobin Concent 33.0, Red Cell Distribution Width 10.5L, Platelet Count 53L, Mean Platelet Volume 9.4, Neutrophils (%) (Auto) , Lymphocytes (%) (Auto) , Monocytes (%) (Auto) , Eosinophils (%) (Auto) , Basophils (%) (Auto) , Differential Total Cells Counted 100, Neutrophils % ( Manual) 80H, Lymphocytes % (Manual) 16L, Monocytes % (Manual) 3, Eosinophils % ( Manual) 1, Basophils % (Manual) 0, Band Neutrophils 0, Platelet Estimate DecreasedL, Platelet Morphology Normal, Hypochromasia 1+, Macrocytosis 1+, Erythrocyte Sedimentation Rate 40H, Prothrombin Time 11.2, Prothromb Time International Ratio 1.1, Activated Partial Thromboplast Time 28, Hemoglobin A1c 4.4, Iron Level 115, Total Iron Binding Capacity 239L, Percent Iron Saturation 48, Unsaturated Iron Binding 124, Ferritin 567H, Ammonia 44, Lactate Dehydrogenase 284H, Amylase Level 537*H, Lipase 1895H, Carcinoembryonic Antigen 2.2, CA 19-9 Antigen 48.75H 12/27/16 09:00: CA 125 Antigen [Pending], Hepatitis A IgM Antibody [Pending], Hepatitis B Surface Antigen [Pending], Hepatitis B Core IgM Antibody [Pending], Hepatitis C Antibody [Pending], HIV (1&2) Antibody Rapid Negative 12/27/16 16:30: Prothrombin Time 10.7, Prothromb Time International Ratio 1.1, Haptoglobin 103, D-Dimer 4990H, Sodium Level 132L, Potassium Level 3.2L, Chloride Level 90L, Carbon Dioxide Level 20, Anion Gap 22H, Blood Urea Nitrogen 6L, Creatinine 0.6# , Estimat Glomerular Filtration Rate > 60, Glucose Level 97#, Calcium Level 9.3 , Total Bilirubin 1.2, Direct Bilirubin 0.3, Aspartate Amino Transf (AST/SGOT) 106H, Alanine Aminotransferase (ALT/SGPT) 74H, Alkaline Phosphatase 124H, Total Protein 7.7, Albumin 4.4, Globulin 3.3, Albumin/Globulin Ratio 1.3, Heparin-PF4 Antibody Screen [Pending] 12/27/16 19:06: Urine HCG, Qualitative Negative Height (Feet): 5 Height (Inches): 2.00 Weight (Pounds): 105 Objective WDWN NCAT supple CTA RRR soft, mild epigastric TTP no edema non focal EDY LAUGHLIN Dec 27, 2016 20:51
[2016-12-27] MEDS: Famotidine 20 MG/ 2ML VIAL IVP SCH (21:00)
--- NOTE | 2016-12-27 23:29 | Consultation ---
DATE OF CONSULTATION: 12/27/2016 INFECTIOUS DISEASE CONSULTATION REQUESTING PHYSICIAN: Simon Gates D.O. REASON FOR CONSULTATION: Pancreatitis. Recommendation for antibiotics treatment. HISTORY OF PRESENT ILLNESS: The patient is a 41-year-old female with past medical history of hyperlipidemia who was on cholesterol treatment in the past but stopped, presented to the emergency room with chief complaint of increasing abdominal pain, nausea, and vomiting. Her pain was mainly localized in the bilateral upper abdomen started couple of days ago. The patient denied any diarrhea or blood in the stool. No fever or chills. She had multiple episodes of vomiting for the last 48 hours, but no blood in her vomitus. The patient has been traveling recently and she was in [place] but she had no sick contacts over there. She denied any rash. No lymphadenopathy. She never had any previous episodes of abdominal pain like this before. Her pain is cramp and sharp in nature, 5/10 localized in the upper abdomen. The patient in the emergency room was found to have elevated lipase level with level more than 3000. So, she was admitted to the hospital and started on IV Zosyn by the dba manager so I was consulted by the primary provider for the need of antibiotics treatment if any for her acute pancreatitis. REVIEW OF SYSTEMS: A 14-point system reviewed were all negative apart from the one I mentioned above in my History and Physical. PAST MEDICAL HISTORY: Significant for hyperlipidemia. She had also lymph node malignancy unclear whether lymphoma or leukemia. PAST SURGICAL HISTORY: Negative. SOCIAL HISTORY: The patient is . Lives with her . Denied using any drugs, tobacco, or alcohol. She is unemployed currently. ALLERGIES: She is allergic to peanuts and sesame oil. MEDICATIONS: The patient is on Zosyn 3.375 g IV q.8 h. For the list of her medications, please refer to MAR. LABORATORY DATA: Labs today showed white count of 5, hemoglobin of 11.6, hematocrit of 35.2, and platelet count of 53,000. BUN of 17, creatinine of 1.3, chloride of 86, and glucose 199. AST of 212, ALT of 128, and alkaline phosphatase of 174. Lipase more than 3000. HCG less than 1. Serology for HIV antibody screening is negative. Her hepatitis panel is pending. Imaging, none done here so far. PHYSICAL EXAMINATION: VITAL SIGNS: Temperature 97.9, pulse 64, respirations 16, blood pressure 101/67, and pulse 99% on room air. GENERAL: Young female lying in bed, awake, alert, oriented, not in distress. HEENT: Normocephalic and atraumatic. Pupils both reactive to light equally. Moist oral mucosa. No exudate. NECK: Supple. No lymphadenopathy. CARDIOVASCULAR: Regular rate and rhythm. No murmur. LUNGS: Clear bilaterally. No wheezing or rhonchi. Normal breathing efforts. ABDOMEN: Soft and tender mainly in the epigastric area with guarding. No rebound. No organomegaly. No ascites. EXTREMITIES: No edema. No cyanosis. ASSESSMENT AND PLAN: 1. Acute pancreatitis most likely due to high cholesterol levels unclear whether she had necrotizing pancreatitis or there is any phlegmon formation. I will await the results of CT scan of the abdomen to rule out necrosis or phlegmon and if it was negative, we will discontinue Zosyn and monitor clinically. Since no role for antibiotics in acute pancreatitis unless they have necrosis or phlegmon. 2. Hyperlipidemia, suspect familial . Recommend endocrinology consultation and to treat her hyperlipidemia to prevent recurrent episodes of pancreatitis. 3. Nausea, vomiting, and diarrhea due to acute pancreatitis. Continue supportive care and pain management as needed. 4. Abdominal pain due to pancreatitis. Continue pain management as per primary provider. Bryce Thorpe M.D. DR: FIDEL JOB#: [id number] CC: ANDRESSA
--- NOTE | 2016-12-27 23:39 | Consultation ---
DATE OF CONSULTATION: NOTE: POOR QUALITY AUDIO HEMATOLOGY/ONCOLOGY CONSULTATION CONSULTING PHYSICIAN: Son Fontana M.D. ATTENDING PHYSICIAN: Simon Gates D.O. REASON FOR CONSULTATION: The patient 1. Anemia. 2. Thrombocytopenia. CURRENT COMPLAINT/ HISTORY OF PRESENT ILLNESS: Dear Dr. Simon Gates, 41-year-old female without significant past medical history. The patient [facility] with nausea and vomiting. It was found that the patient pancreatitis. During evaluation, it was found that the patient developed significant anemia as well as significant thrombocytopenia. The patient was placed on heparin initially, but subsequently had been . issue of anemia as well as thrombocytopenia. PAST MEDICAL HISTORY: , gallstone pancreatitis, and chronic abdominal pain. MEDICATIONS: FAMILY HISTORY: Noncontributory. SOCIAL HISTORY: Positive history of smoking. No history of alcohol abuse. No history of illicit drug use. REVIEW OF SYSTEMS: General: The patient is not in any significant distress . Respiratory: Mild shortness of breath . Neuromuscular: The patient claim muscle aches. Gastrointestinal: The patient claims constipation. PHYSICAL EXAMINATION: VITAL SIGNS: T-max 97 degrees, respiratory rate 20, and blood pressure 130/80. HEENT: Head, normocephalic and atraumatic. NECK: Supple. No thyroid enlargement. No lymphadenopathy. LUNGS: Decreased breath sounds bilaterally with a few rhonchi at the base. . ABDOMEN: Soft and benign. No organomegaly. present. EXTREMITIES: No cyanosis, clubbing or edema. LABORATORY AND DIAGNOSTIC DATA: WBC 5.0, hemoglobin 11.6, hematocrit 35.2 and platelets 53,000. amylase is 537. C 19-9 is 48.7. Serology, HIV negative. Toxicology negative. IMPRESSION: 1. Thrombocytopenia, multifactorial, . 2. thrombocytopenia secondary to medication, chronic idiopathic thrombocytopenic purpura. 3. Anemia of chronic disease. 4. Decreased hemoglobin and hematocrit, rule out gastrointestinal bleed. 5. Gallstone pancreatitis. 6. Nausea and vomiting. 7. Diabetes mellitus. RECOMMENDATION: 1. Watch count. 2. Watch coagulopathy. 3. Renal rule out deep vein thrombosis, 4. GI evaluation. 5. . 6. Low platelet count. 7. . 8. . Thank you. Son Fontana MD DR: RAJENDRA JOB#: [id number] CC:
[2016-12-28] VITALS: BP 125/76
[2016-12-28] MEDS: Morphine Sulfate 2mg/ml Inj IVP PRN (01:10)
[2016-12-28 04:00] VITALS: BP 117/81
[2016-12-28] MEDS: D5 1/2NS 1,000 ML IV SCH (05:50)
[2016-12-28] MEDS: Piperacillin/Tazobactam 3.375 GM in NS 110 ML IVPB SCH ×3 (05:51→21:18)
[2016-12-28 06:35] LABS: MEAN CORPUSCULAR HEMOGLOBIN 34.9 PG (27.0-31.0); MEAN CORPUSCULAR VOLUME 103 FL (80-99); MEAN PLATELET VOLUME 10.6 FL (6.5-10.1); PLATELET COUNT 53 K/UL (150-450); RED BLOOD COUNT 3.81 M/UL (4.20-5.40); RED CELL DISTRIBUTION WIDTH 10.4 % (11.6-14.8); WHITE BLOOD COUNT 4.3 K/UL (4.8-10.8)
[2016-12-28 06:45] LABS: ANION GAP 15 (5-15); CALCIUM 9.7 mg/dL (8.6-10.2); CARBON DIOXIDE 29 mEQ/L (20-30); CHLORIDE 90 mEQ/L (98-107); CREATININE 0.5 mg/dL (0.5-0.9); GLOMERULAR FILTRATION RATE > 60 mL/min (>60); HEMOLYSIS 6; SODIUM 134 mEQ/L (135-145)
--- NOTE | 2016-12-28 07:37 | General Progress Note ---
Assessment/Plan Problem List: (1) Gallstone pancreatitis ICD Codes: K85.10 - Biliary acute pancreatitis without necrosis or infection; R19.7 - Diarrhea, unspecified SNOMED: 49314570 (2) Nausea, vomiting, and diarrhea ICD Codes: R11.2 - Nausea with vomiting, unspecified; R19.7 - Diarrhea, unspecified SNOMED: 7815394 (3) Abdominal pain ICD Codes: R10.9 - Unspecified abdominal pain SNOMED: 40342268 (4) Thrombocytopenia ICD Codes: D69.6 - Thrombocytopenia, unspecified SNOMED: 564309008 (5) Hypokalemia ICD Codes: E87.6 - Hypokalemia SNOMED: 96585173 Status: stable, progressing, tolerating diet Assessment/Plan ot pt diet gi hem neph f/u cbc bmp am Subjective Constitutional: Reports: weakness Allergies: Coded Allergies: PEANUT (Unverified Allergy, Unknown, 07/26/14) SESAME OIL (Unverified Allergy, Unknown, 12/26/16) All Systems: reviewed and negative except above Subjective sl abd pain Objective Last 24 Hour Vital Signs Date Time Temp Pulse Resp B/P Pulse Ox O2 Delivery O2 Flow Rate FiO2 12/28/16 04:00 97.9 84 21 117/81 98 Room Air 12/28/16 00:00 98.2 76 20 125/76 98 Room Air 12/27/16 20:00 97.7 73 18 100/71 100 Room Air 12/27/16 17:29 97.7 12/27/16 16:40 98.2 77 19 110/72 100 Room Air 12/27/16 11:21 97.9 64 16 101/67 99 Room Air 12/27/16 08:00 60 12/27/16 08:00 97.5 66 16 102/66 99 Room Air Intake and Output 12/27/16 12/28/16 19:00 07:00 Intake Total 682.5 ml 75 ml Output Total 0 ml Balance 682.5 ml 75 ml Intake IV Total 682.5 ml 75 ml Output Urine Total 0 ml # Voids 1 Laboratory Tests 12/27/16 09:00: CA 125 Antigen [Pending], Hepatitis A IgM Antibody [Pending], Hepatitis B Surface Antigen [Pending], Hepatitis B Core IgM Antibody [Pending], Hepatitis C Antibody [Pending], HIV (1&2) Antibody Rapid Negative 12/27/16 16:30: Haptoglobin 103, Prothrombin Time 10.7, Prothromb Time International Ratio 1.1, D-Dimer 4990H, Sodium Level 132L, Potassium Level 3.2L, Chloride Level 90L, Carbon Dioxide Level 20, Anion Gap 22H, Blood Urea Nitrogen 6L, Creatinine 0.6# , Estimat Glomerular Filtration Rate > 60, Glucose Level 97#, Calcium Level 9.3 , Total Bilirubin 1.2, Direct Bilirubin 0.3, Aspartate Amino Transf (AST/SGOT) 106H, Alanine Aminotransferase (ALT/SGPT) 74H, Alkaline Phosphatase 124H, Total Protein 7.7, Albumin 4.4, Globulin 3.3, Albumin/Globulin Ratio 1.3, Heparin-PF4 Antibody Screen [Pending] 12/27/16 19:06: Urine HCG, Qualitative Negative 12/28/16 06:05: Sodium Level 134L, Potassium Level 3.0L, Chloride Level 90L, Carbon Dioxide Level 29, Anion Gap 15, Blood Urea Nitrogen 5L, Creatinine 0.5, Estimat Glomerular Filtration Rate > 60, Glucose Level 105, Calcium Level 9.7, White Blood Count 4.3L, Red Blood Count 3.81L, Hemoglobin 13.3, Hematocrit 39.1, Mean Corpuscular Volume 103H, Mean Corpuscular Hemoglobin 34.9H, Mean Corpuscular Hemoglobin Concent 34.0, Red Cell Distribution Width 10.4L, Platelet Count 53L, Mean Platelet Volume 10.6H, Neutrophils (%) (Auto) , Lymphocytes (%) (Auto) , Monocytes (%) (Auto) , Eosinophils (%) (Auto) , Basophils (%) (Auto) , Neutrophils % (Manual) [Pending], Lymphocytes % (Manual) [Pending], Platelet Estimate [Pending], Platelet Morphology [Pending] Height (Feet): 5 Height (Inches): 2.00 Weight (Pounds): 105 General Appearance: alert EENT: normal ENT inspection Neck: normal alignment Cardiovascular: normal peripheral pulses, normal rate, regular rhythm Respiratory/Chest: chest wall non-tender, lungs clear, normal breath sounds Abdomen: normal bowel sounds, non tender, soft Extremities: normal inspection Edema: no edema noted Arm (L), no edema noted Arm (R), no edema noted Leg (L), no edema noted Leg (R), no edema noted Pedal (L), no edema noted Pedal (R), no edema noted Generalized Neurologic: responsive, motor weakness Skin: normal pigmentation, warm/dry SURYA PRICE Dec 28, 2016 07:36
[2016-12-28 08:00] VITALS: BP 116/76
[2016-12-28 10:03] LABS: BAND NEUTROPHILS % (MANUAL) 0 % (0-8); BASOPHILS % (MANUAL) 0 % (0-2); EOSINOPHILS % (MANUAL) 1 % (0-3); HYPOCHROMASIA 1+; LYMPHOCYTES % (MANUAL) 17 % (20-45); MACROCYTES 1+; NEUTROPHILS % (MANUAL) 81 % (45-75); PLATELET ESTIMATE DECREASED; PLATELET MORPHOLOGY NORMAL; TOTAL CELLS COUNTED 100
[2016-12-28 12:02] VITALS: BP 105/75
--- NOTE | 2016-12-28 12:27 | General Progress Note ---
Assessment/Plan Assessment/Plan IMPRESSION: 1. Thrombocytopenia, multifactorial, currently stable, >50k, with pancreatitis 2. Thrombocytopenia potentially 2/2 sepsis, on abx 3. Anemia of chronic disease. 4. Leukpenia eval for infection, currently stable 5. Gallstone pancreatitis. 6. Nausea and vomiting. 7. Diabetes mellitus. RECOMMENDATION: 1. Watch count. 2. Watch coagulopathy. 3. Dopplers rule out DVT 4. GI evaluation, Followup on pulm recs. 5. Hepatitis and HIV eval 6. CT and US liver eval 7. Staff Thank you, Mick Fontana MD Subjective Constitutional: Reports: no symptoms HEENT: Reports: no symptoms Cardiovascular: Reports: no symptoms Respiratory: Reports: no symptoms Gastrointestinal/Abdominal: Reports: poor appetite, poor fluid intake Genitourinary: Reports: no symptoms Neurologic/Psychiatric: Reports: no symptoms Endocrine: Reports: no symptoms Hematologic/Lymphatic: Reports: anemia Allergies: Coded Allergies: PEANUT (Unverified Allergy, Unknown, 07/26/14) SESAME OIL (Unverified Allergy, Unknown, 12/26/16) Subjective stable, no fevers, chills, night sweats Objective Last 24 Hour Vital Signs Date Time Temp Pulse Resp B/P Pulse Ox O2 Delivery O2 Flow Rate FiO2 12/28/16 12:02 97.5 76 18 105/75 98 Room Air 18 12/28/16 08:00 98.4 79 18 116/76 100 Room Air 79 12/28/16 04:00 97.9 84 21 117/81 98 Room Air 12/28/16 00:00 98.2 76 20 125/76 98 Room Air 12/27/16 20:00 97.7 73 18 100/71 100 Room Air 12/27/16 17:29 97.7 12/27/16 16:40 98.2 77 19 110/72 100 Room Air Intake and Output 12/27/16 12/28/16 19:00 07:00 Intake Total 682.5 ml 75 ml Output Total 0 ml Balance 682.5 ml 75 ml Intake IV Total 682.5 ml 75 ml Output Urine Total 0 ml # Voids 1 Laboratory Tests 12/27/16 16:30: Haptoglobin 103, Prothrombin Time 10.7, Prothromb Time International Ratio 1.1, D-Dimer 4990H, Sodium Level 132L, Potassium Level 3.2L, Chloride Level 90L, Carbon Dioxide Level 20, Anion Gap 22H, Blood Urea Nitrogen 6L, Creatinine 0.6# , Estimat Glomerular Filtration Rate > 60, Glucose Level 97#, Calcium Level 9.3 , Total Bilirubin 1.2, Direct Bilirubin 0.3, Aspartate Amino Transf (AST/SGOT) 106H, Alanine Aminotransferase (ALT/SGPT) 74H, Alkaline Phosphatase 124H, Total Protein 7.7, Albumin 4.4, Globulin 3.3, Albumin/Globulin Ratio 1.3, Heparin-PF4 Antibody Screen [Pending] 12/27/16 19:06: Urine HCG, Qualitative Negative 12/28/16 06:05: Sodium Level 134L, Potassium Level 3.0L, Chloride Level 90L, Carbon Dioxide Level 29, Anion Gap 15, Blood Urea Nitrogen 5L, Creatinine 0.5, Estimat Glomerular Filtration Rate > 60, Glucose Level 105, Calcium Level 9.7, White Blood Count 4.3L, Red Blood Count 3.81L, Hemoglobin 13.3, Hematocrit 39.1, Mean Corpuscular Volume 103H, Mean Corpuscular Hemoglobin 34.9H, Mean Corpuscular Hemoglobin Concent 34.0, Red Cell Distribution Width 10.4L, Platelet Count 53L, Mean Platelet Volume 10.6H, Neutrophils (%) (Auto) , Lymphocytes (%) (Auto) , Monocytes (%) (Auto) , Eosinophils (%) (Auto) , Basophils (%) (Auto) , Differential Total Cells Counted 100, Neutrophils % (Manual) 81H, Lymphocytes % (Manual) 17L, Monocytes % (Manual) 1, Eosinophils % (Manual) 1, Basophils % ( Manual) 0, Band Neutrophils 0, Platelet Estimate DecreasedL, Platelet Morphology Normal, Hypochromasia 1+, Macrocytosis 1+ Height (Feet): 5 Height (Inches): 2.00 Weight (Pounds): 105 General Appearance: no apparent distress EENT: TMs normal Neck: supple Cardiovascular: regular rhythm Respiratory/Chest: lungs clear Abdomen: non tender Extremities: non-tender Edema: 1+ Leg (L), 1+ Leg (R) Edema: mild edema Neurologic: alert Skin: warm/dry Mick Fontana Dec 28, 2016 12:27
--- NOTE | 2016-12-28 12:31 | Nephrology Progress Note ---
Assessment/Plan Problem List: (1) Hyponatremia (2) High triglycerides (3) Abdominal pain (4) Acute pancreatitis (5) Hyperlipidemia (6) Hypokalemia (7) Thrombocytopenia Plan Mild hyponatremia - free water restriction Continue NPO Add k to IVF Monitor lytes Replace potassium Monitor lytes Consult dictated #[id number] Subjective Constitutional: Denies: chills, diaphoresis, fever, malaise, no symptoms, other , weakness HEENT: Denies: blurred vision, double vision, ear discharge, ear pain, eye pain , mouth pain, mouth swelling, no symptoms, nose congestion, nose pain, other, tearing, throat pain, throat swelling Genitourinary: Denies: burning, discharge, flank pain, frequency, hematuria, incontinence, no symptoms, other, pain, urgency Neurologic/Psychiatric: Denies: anxiety, depressed, emotional problems, headache, no symptoms, numbness, other, paresthesia, pre-existing deficit, seizure, tingling, tremors, weakness Objective Objective Last 24 Hour Vital Signs Date Time Temp Pulse Resp B/P Pulse Ox O2 Delivery O2 Flow Rate FiO2 12/28/16 12:02 97.5 76 18 105/75 98 Room Air 18 12/28/16 08:00 98.4 79 18 116/76 100 Room Air 79 12/28/16 04:00 97.9 84 21 117/81 98 Room Air 12/28/16 00:00 98.2 76 20 125/76 98 Room Air 12/27/16 20:00 97.7 73 18 100/71 100 Room Air 12/27/16 17:29 97.7 12/27/16 16:40 98.2 77 19 110/72 100 Room Air Intake and Output 12/27/16 12/28/16 19:00 07:00 Intake Total 682.5 ml 75 ml Output Total 0 ml Balance 682.5 ml 75 ml Intake IV Total 682.5 ml 75 ml Output Urine Total 0 ml # Voids 1 Laboratory Tests 12/27/16 16:30: Haptoglobin 103, Prothrombin Time 10.7, Prothromb Time International Ratio 1.1, D-Dimer 4990H, Sodium Level 132L, Potassium Level 3.2L, Chloride Level 90L, Carbon Dioxide Level 20, Anion Gap 22H, Blood Urea Nitrogen 6L, Creatinine 0.6# , Estimat Glomerular Filtration Rate > 60, Glucose Level 97#, Calcium Level 9.3 , Total Bilirubin 1.2, Direct Bilirubin 0.3, Aspartate Amino Transf (AST/SGOT) 106H, Alanine Aminotransferase (ALT/SGPT) 74H, Alkaline Phosphatase 124H, Total Protein 7.7, Albumin 4.4, Globulin 3.3, Albumin/Globulin Ratio 1.3, Heparin-PF4 Antibody Screen [Pending] 12/27/16 19:06: Urine HCG, Qualitative Negative 12/28/16 06:05: Sodium Level 134L, Potassium Level 3.0L, Chloride Level 90L, Carbon Dioxide Level 29, Anion Gap 15, Blood Urea Nitrogen 5L, Creatinine 0.5, Estimat Glomerular Filtration Rate > 60, Glucose Level 105, Calcium Level 9.7, White Blood Count 4.3L, Red Blood Count 3.81L, Hemoglobin 13.3, Hematocrit 39.1, Mean Corpuscular Volume 103H, Mean Corpuscular Hemoglobin 34.9H, Mean Corpuscular Hemoglobin Concent 34.0, Red Cell Distribution Width 10.4L, Platelet Count 53L, Mean Platelet Volume 10.6H, Neutrophils (%) (Auto) , Lymphocytes (%) (Auto) , Monocytes (%) (Auto) , Eosinophils (%) (Auto) , Basophils (%) (Auto) , Differential Total Cells Counted 100, Neutrophils % (Manual) 81H, Lymphocytes % (Manual) 17L, Monocytes % (Manual) 1, Eosinophils % (Manual) 1, Basophils % ( Manual) 0, Band Neutrophils 0, Platelet Estimate DecreasedL, Platelet Morphology Normal, Hypochromasia 1+, Macrocytosis 1+ Height (Feet): 5 Height (Inches): 2.00 Weight (Pounds): 105 General Appearance: no apparent distress, alert EENT: PERRL/EOMI, normal ENT inspection Neck: non-tender, normal alignment, supple Cardiovascular: normal peripheral pulses, normal rate, regular rhythm, no JVD Respiratory/Chest: lungs clear, normal breath sounds, no respiratory distress Abdomen: soft, no organomegaly Extremities: non-tender, normal inspection, no calf tenderness, normal capillary refill Neurologic: alert, oriented x 3, responsive, normal mood/affect Naomi Duke N.P. Dec 28, 2016 12:31
[2016-12-28] MEDS ORDERED: Miralax 17gm pkt ORAL PRN (13:15)
[2016-12-28] MEDS: D5 1/2NS w/KCl 20mEq 1,000 ML IV SCH (14:26)
--- NOTE | 2016-12-28 15:50 | General Progress Note ---
Assessment/Plan Assessment/Plan GI: Plan Problems: (1) Acute pancreatitis (2) Abdominal pain (3) High triglycerides (4) Malnutrition Recommendations NPO IVF Follow labs Subjective Allergies: Coded Allergies: PEANUT (Unverified Allergy, Unknown, 07/26/14) SESAME OIL (Unverified Allergy, Unknown, 12/26/16) Subjective Better less abd pain Objective Last 24 Hour Vital Signs Date Time Temp Pulse Resp B/P Pulse Ox O2 Delivery O2 Flow Rate FiO2 12/28/16 12:02 97.5 76 18 105/75 98 Room Air 18 12/28/16 08:00 98.4 79 18 116/76 100 Room Air 79 12/28/16 04:00 97.9 84 21 117/81 98 Room Air 12/28/16 00:00 98.2 76 20 125/76 98 Room Air 12/27/16 20:00 97.7 73 18 100/71 100 Room Air 12/27/16 17:29 97.7 12/27/16 16:40 98.2 77 19 110/72 100 Room Air Intake and Output 12/27/16 12/28/16 19:00 07:00 Intake Total 682.5 ml 75 ml Output Total 0 ml Balance 682.5 ml 75 ml Intake IV Total 682.5 ml 75 ml Output Urine Total 0 ml # Voids 1 Laboratory Tests 12/27/16 16:30: Haptoglobin 103, Prothrombin Time 10.7, Prothromb Time International Ratio 1.1, D-Dimer 4990H, Sodium Level 132L, Potassium Level 3.2L, Chloride Level 90L, Carbon Dioxide Level 20, Anion Gap 22H, Blood Urea Nitrogen 6L, Creatinine 0.6# , Estimat Glomerular Filtration Rate > 60, Glucose Level 97#, Calcium Level 9.3 , Total Bilirubin 1.2, Direct Bilirubin 0.3, Aspartate Amino Transf (AST/SGOT) 106H, Alanine Aminotransferase (ALT/SGPT) 74H, Alkaline Phosphatase 124H, Total Protein 7.7, Albumin 4.4, Globulin 3.3, Albumin/Globulin Ratio 1.3, Heparin-PF4 Antibody Screen [Pending] 12/27/16 19:06: Urine HCG, Qualitative Negative 12/28/16 06:05: Sodium Level 134L, Potassium Level 3.0L, Chloride Level 90L, Carbon Dioxide Level 29, Anion Gap 15, Blood Urea Nitrogen 5L, Creatinine 0.5, Estimat Glomerular Filtration Rate > 60, Glucose Level 105, Calcium Level 9.7, White Blood Count 4.3L, Red Blood Count 3.81L, Hemoglobin 13.3, Hematocrit 39.1, Mean Corpuscular Volume 103H, Mean Corpuscular Hemoglobin 34.9H, Mean Corpuscular Hemoglobin Concent 34.0, Red Cell Distribution Width 10.4L, Platelet Count 53L, Mean Platelet Volume 10.6H, Neutrophils (%) (Auto) , Lymphocytes (%) (Auto) , Monocytes (%) (Auto) , Eosinophils (%) (Auto) , Basophils (%) (Auto) , Differential Total Cells Counted 100, Neutrophils % (Manual) 81H, Lymphocytes % (Manual) 17L, Monocytes % (Manual) 1, Eosinophils % (Manual) 1, Basophils % ( Manual) 0, Band Neutrophils 0, Platelet Estimate DecreasedL, Platelet Morphology Normal, Hypochromasia 1+, Macrocytosis 1+ Height (Feet): 5 Height (Inches): 2.00 Weight (Pounds): 105 Objective WDWN NCAT supple CTA RRR soft, mild epigastric TTP no edema non focal EDY LAUGHLIN Dec 28, 2016 15:50
[2016-12-28 16:21] VITALS: BP 112/69
[2016-12-28 20:00] VITALS: BP 121/81
--- NOTE | 2016-12-28 21:17 | Cardiology Report ---
APPROVED REPORT EKG Measurement Heart [id number] MA [id number] Sinus tachycardia Septal infarct, age undetermined Abnormal ECG
[2016-12-28] MEDS: Famotidine 20 MG/ 2ML VIAL IVP SCH (21:18)
--- NOTE | 2016-12-28 22:49 | Consultation ---
DATE OF CONSULTATION: 12/28/2016 NEPHROLOGY CONSULTATION REFERRING PHYSICIAN: Simon Gates D.O. REASON FOR CONSULTATION: Hypokalemia and hyponatremia. HISTORY OF PRESENT ILLNESS: The patient is a 41-year-old female, who presented to the emergency room with complaint of abdominal pain, nausea, and vomiting. Pain is mainly localized in the upper quadrant and has lasted for about three days. She denies diarrhea. Denies chest pain. No fever or chills. No hematemesis. Pain is crampy in nature at the time of the admission. The patient stated at this time the pain has subsided. In the emergency room, she was found to have lipase level elevated and was therefore admitted for followup. PAST MEDICAL HISTORY: Includes hyperlipidemia, pancreatitis, and chronic abdominal pain. ALLERGIES: Allergic to peanuts and sesame oil. MEDICATIONS: MiraLax, Zosyn, Pepcid, Restoril, Mylanta, Benadryl, Tylenol, morphine sulfate, nitroglycerin, and D5 half NS. SOCIAL HISTORY: The patient lives at home with family. Denies any drug use. No illicit drug use. No smoking history. FAMILY HISTORY: Noncontributory. REVIEW OF SYSTEMS: A full 12-point review of systems was reviewed with the patient and positive as noted in the history of present illness. PHYSICAL EXAMINATION: VITAL SIGNS: Blood pressure is 105/75, heart rate is 76, temperature is 97.5, respirations 18, and O2 saturation is 98% on room air. HEENT: Head is normocephalic and atraumatic with moist mucous membranes. Pupils are equal, round, and reactive to light and accommodation. NECK: Supple. No jugular venous distention noted. LUNGS: Clear bilaterally. CARDIOVASCULAR: Regular rate and rhythm. S1 and S2. No murmur. No gallop. ABDOMEN: Soft. Positive bowel sounds in all four quadrants. EXTREMITIES: No edema, no cyanosis, and no clubbing. NEUROLOGIC: The patient is alert, awake, oriented with no focal deficits. LABORATORY DATA: CBC shows a white count 4.3, hemoglobin 13.3, hematocrit 39.1, and a platelet count of 53,000. BMP shows sodium 134, potassium 3.0, chloride is 90, bicarbonate is 29, BUN is 5, creatinine is 0.5, and glucose is 105. ASSESSMENT: 1. Hypokalemia. 2. Hyponatremia. 3. Thrombocytopenia. 4. Abdominal pain. 5. Pancreatitis. 6. Hyperlipidemia. PLAN: We will replace the potassium with by mouth pills. We will continue with the current intravenous fluids and monitor lytes. We will monitor BUN as well. We will continue antibiotics per infectious Diseases. We will continue all other medications. Continue pain management with Motrin. Hematology and Gastrointestinal followup. Monitor the patient's response to treatment. Franklyn Rowe M.D. Naomi Duke DR: FLORINA JOB#: [id number] CC: ANDRESSA
[2016-12-29] VITALS: BP 129/79
[2016-12-29] MEDS: Piperacillin/Tazobactam 3.375 GM in NS 110 ML IVPB SCH ×2 (06:04→13:43)
[2016-12-29] MEDS: Morphine Sulfate 2mg/ml Inj IVP PRN ×3 (06:18→18:25)
[2016-12-29 08:00] VITALS: BP 117/80
[2016-12-29] MEDS: D5 1/2NS w/KCl 20mEq 1,000 ML IV SCH (08:00)
[2016-12-29 08:11] LABS: MEAN CORPUSCULAR HGB CONC 34.8 G/DL (32.0-36.0); MEAN CORPUSCULAR VOLUME 101 FL (80-99); MEAN PLATELET VOLUME 8.4 FL (6.5-10.1); PLATELET COUNT 56 K/UL (150-450); RED BLOOD COUNT 3.43 M/UL (4.20-5.40); RED CELL DISTRIBUTION WIDTH 10.3 % (11.6-14.8); WHITE BLOOD COUNT 3.5 K/UL (4.8-10.8)
[2016-12-29 08:38] LABS: AMYLASE 307 U/L (10-110)
[2016-12-29 08:54] LABS: ALANINE AMINOTRANSFERASE 73 U/L (3-33); ALBUMIN/GLOBULIN RATIO 1.3 (1.0-2.7); ANION GAP 21 (5-15); ASPARTATE AMINO TRANSFERASE 121 U/L (5-40); CALCIUM 9.5 mg/dL (8.6-10.2); CARBON DIOXIDE 25 mEQ/L (20-30); CHLORIDE 89 mEQ/L (98-107); CREATININE 0.5 mg/dL (0.5-0.9); GLOMERULAR FILTRATION RATE > 60 mL/min (>60); HEMOLYSIS 2; POTASSIUM 2.8 mEQ/L (3.4-4.9); SODIUM 135 mEQ/L (135-145); TOTAL PROTEIN 7.3 g/dL (6.6-8.7)
[2016-12-29 09:36] LABS: LIPASE 1200 U/L (< 60)
[2016-12-29] MEDS ORDERED: Norco 5mg/325mg tab ORAL PRN (10:30)
[2016-12-29] MEDS ORDERED: Morphine Sulfate 2mg/ml Inj IVP PRN (11:00)
[2016-12-29] MEDS: D5 1/2NS w/KCl 40meq 1000ml 1,000 ML IV SCH (11:28)
[2016-12-29 11:59] LABS: ANISOCYTOSIS 1+; BAND NEUTROPHILS % (MANUAL) 0 % (0-8); BASOPHILS % (MANUAL) 0 % (0-2); EOSINOPHILS % (MANUAL) 0 % (0-3); LYMPHOCYTES % (MANUAL) 14 % (20-45); MACROCYTES 1+; NEUTROPHILS % (MANUAL) 75 % (45-75); PLATELET ESTIMATE DECREASED; PLATELET MORPHOLOGY NORMAL; TOTAL CELLS COUNTED 100
--- NOTE | 2016-12-29 12:00 | Nephrology Progress Note ---
Assessment/Plan Problem List: (1) Hyponatremia (2) High triglycerides (3) Abdominal pain (4) Acute pancreatitis (5) Hyperlipidemia (6) Hypokalemia (7) Thrombocytopenia Plan Hyponatremia - resolved Hypokalemia- Continue IVF, replace potassium IV Monitor lytes Pain management Hematology F/U GI F/U AM labs Subjective Constitutional: Denies: chills, diaphoresis, fever, malaise, no symptoms, other , weakness HEENT: Denies: blurred vision, double vision, ear discharge, ear pain, eye pain , mouth pain, mouth swelling, no symptoms, nose congestion, nose pain, other, tearing, throat pain, throat swelling Genitourinary: Denies: burning, discharge, flank pain, frequency, hematuria, incontinence, no symptoms, other, pain, urgency Neurologic/Psychiatric: Denies: anxiety, depressed, emotional problems, headache, no symptoms, numbness, other, paresthesia, pre-existing deficit, seizure, tingling, tremors, weakness Subjective States that she was in pain earlier but she feels better after pain med Objective Objective Last 24 Hour Vital Signs Date Time Temp Pulse Resp B/P Pulse Ox O2 Delivery O2 Flow Rate FiO2 12/29/16 08:47 98.4 12/29/16 08:00 98.1 65 18 117/80 100 Room Air 12/29/16 00:00 98.4 75 18 129/79 99 Room Air 12/28/16 20:00 98.1 72 18 121/81 99 Room Air 12/28/16 16:21 99.3 73 20 112/69 99 Room Air 20 12/28/16 12:02 97.5 76 18 105/75 98 Room Air 18 Intake and Output 12/28/16 12/29/16 19:00 07:00 Intake Total 532.5 ml 702 ml Balance 532.5 ml 702 ml Intake IV Total 532.5 ml 702 ml # Voids 2 Laboratory Tests 12/29/16 07:50: White Blood Count 3.5L, Red Blood Count 3.43L, Hemoglobin 12.0, Hematocrit 34.5L , Mean Corpuscular Volume 101H, Mean Corpuscular Hemoglobin 35.0H, Mean Corpuscular Hemoglobin Concent 34.8, Red Cell Distribution Width 10.3L, Platelet Count 56L, Mean Platelet Volume 8.4, Neutrophils (%) (Auto) , Lymphocytes (%) (Auto) , Monocytes (%) (Auto) , Eosinophils (%) (Auto) , Basophils (%) (Auto) , Neutrophils % (Manual) [Pending], Lymphocytes % (Manual) [Pending], Platelet Estimate [Pending], Platelet Morphology [Pending], Sodium Level 135, Potassium Level 2.8L, Chloride Level 89L, Carbon Dioxide Level 25, Anion Gap 21H, Blood Urea Nitrogen 4L, Creatinine 0.5, Estimat Glomerular Filtration Rate > 60, Glucose Level 111H, Calcium Level 9.5, Total Bilirubin 0.8 , Aspartate Amino Transf (AST/SGOT) 121H, Alanine Aminotransferase (ALT/SGPT) 73H, Alkaline Phosphatase 122H, Total Protein 7.3, Albumin 4.2, Globulin 3.1, Albumin/Globulin Ratio 1.3, Amylase Level 307H, Lipase 1200H Height (Feet): 5 Height (Inches): 2.00 Weight (Pounds): 105 General Appearance: no apparent distress, alert EENT: PERRL/EOMI, normal ENT inspection Neck: normal alignment, supple, normal inspection Cardiovascular: normal rate, regular rhythm, no JVD Respiratory/Chest: lungs clear, normal breath sounds, no respiratory distress Abdomen: non tender, soft, no organomegaly Extremities: normal range of motion, non-tender, normal inspection, no calf tenderness, normal capillary refill Neurologic: alert, oriented x 3, responsive, normal mood/affect Naomi Duke N.P. Dec 29, 2016 12:00
[2016-12-29 12:02] VITALS: BP 108/76
--- NOTE | 2016-12-29 13:26 | General Progress Note ---
Assessment/Plan Problem List: (1) Gallstone pancreatitis ICD Codes: K85.10 - Biliary acute pancreatitis without necrosis or infection; R19.7 - Diarrhea, unspecified SNOMED: 12990970 (2) Nausea, vomiting, and diarrhea ICD Codes: R11.2 - Nausea with vomiting, unspecified; R19.7 - Diarrhea, unspecified SNOMED: 2659571 (3) Abdominal pain ICD Codes: R10.9 - Unspecified abdominal pain SNOMED: 77685686 (4) Thrombocytopenia ICD Codes: D69.6 - Thrombocytopenia, unspecified SNOMED: 262882438 (5) Hypokalemia ICD Codes: E87.6 - Hypokalemia SNOMED: 19933505 Status: stable, progressing, tolerating diet Assessment/Plan ot pt diet gi hem neph f/u cbc bmp am Subjective Constitutional: Reports: weakness Allergies: Coded Allergies: PEANUT (Unverified Allergy, Unknown, 07/26/14) SESAME OIL (Unverified Allergy, Unknown, 12/26/16) All Systems: reviewed and negative except above Subjective sl abd pain Objective Last 24 Hour Vital Signs Date Time Temp Pulse Resp B/P Pulse Ox O2 Delivery O2 Flow Rate FiO2 12/29/16 12:02 98.1 76 18 108/76 100 Room Air 12/29/16 11:37 98.1 12/29/16 08:47 98.4 12/29/16 08:00 98.1 65 18 117/80 100 Room Air 12/29/16 00:00 98.4 75 18 129/79 99 Room Air 12/28/16 20:00 98.1 72 18 121/81 99 Room Air 12/28/16 16:21 99.3 73 20 112/69 99 Room Air 20 Intake and Output 12/28/16 12/29/16 19:00 07:00 Intake Total 532.5 ml 702 ml Balance 532.5 ml 702 ml Intake IV Total 532.5 ml 702 ml # Voids 2 Laboratory Tests 12/29/16 07:50: White Blood Count 3.5L, Red Blood Count 3.43L, Hemoglobin 12.0, Hematocrit 34.5L , Mean Corpuscular Volume 101H, Mean Corpuscular Hemoglobin 35.0H, Mean Corpuscular Hemoglobin Concent 34.8, Red Cell Distribution Width 10.3L, Platelet Count 56L, Mean Platelet Volume 8.4, Neutrophils (%) (Auto) , Lymphocytes (%) (Auto) , Monocytes (%) (Auto) , Eosinophils (%) (Auto) , Basophils (%) (Auto) , Differential Total Cells Counted 100, Neutrophils % ( Manual) 75, Lymphocytes % (Manual) 14L, Monocytes % (Manual) 11H, Eosinophils % (Manual) 0, Basophils % (Manual) 0, Band Neutrophils 0, Platelet Estimate DecreasedL, Platelet Morphology Normal, Anisocytosis 1+, Macrocytosis 1+, Sodium Level 135, Potassium Level 2.8L, Chloride Level 89L, Carbon Dioxide Level 25, Anion Gap 21H, Blood Urea Nitrogen 4L, Creatinine 0.5, Estimat Glomerular Filtration Rate > 60, Glucose Level 111H, Calcium Level 9.5, Total Bilirubin 0.8, Aspartate Amino Transf (AST/SGOT) 121H, Alanine Aminotransferase (ALT/SGPT) 73H, Alkaline Phosphatase 122H, Total Protein 7.3, Albumin 4.2, Globulin 3.1, Albumin/Globulin Ratio 1.3, Amylase Level 307H, Lipase 1200H Height (Feet): 5 Height (Inches): 2.00 Weight (Pounds): 105 General Appearance: alert EENT: normal ENT inspection Neck: non-tender, normal alignment, supple Cardiovascular: normal peripheral pulses, normal rate, regular rhythm Respiratory/Chest: chest wall non-tender, lungs clear, normal breath sounds Abdomen: normal bowel sounds, non tender, soft Extremities: normal inspection Edema: no edema noted Arm (L), no edema noted Arm (R), no edema noted Leg (L), no edema noted Leg (R), no edema noted Pedal (L), no edema noted Pedal (R), no edema noted Generalized Neurologic: responsive, motor weakness Skin: normal pigmentation, warm/dry SURYA PRICE Dec 29, 2016 13:26
--- NOTE | 2016-12-29 14:04 | GI Progress Note ---
Assessment/Plan Problems: (1) Thrombocytopenia ICD Codes: D69.6 - Thrombocytopenia, unspecified SNOMED: 933213134 (2) Hyperlipidemia ICD Codes: E78.5 - Hyperlipidemia, unspecified SNOMED: 46609837 (3) Abdominal pain ICD Codes: R10.9 - Unspecified abdominal pain SNOMED: 18359026 (4) Acute pancreatitis ICD Codes: K85.90 - Acute pancreatitis without necrosis or infection, unspecified SNOMED: 045767478 (5) Nausea, vomiting, and diarrhea ICD Codes: R11.2 - Nausea with vomiting, unspecified; R19.7 - Diarrhea, unspecified SNOMED: 5130491 (6) High triglycerides ICD Codes: E78.1 - Pure hyperglyceridemia SNOMED: 364907207 (7) Malnutrition ICD Codes: E46 - Unspecified protein-calorie malnutrition SNOMED: 0574397 Status: progressing Status Narrative Discussed with Dr. Holt. Assessment/Plan CLD, adv as tolerated monitor lipase levels >> downtrending abdominal U/S reviewed >> no gallstones fu APCT dietary consult cholesterol mgmt Hep panel pending fu labs Subjective Gastrointestinal/Abdominal: Reports: abdominal pain - improved Objective Last 24 Hour Vital Signs Date Time Temp Pulse Resp B/P Pulse Ox O2 Delivery O2 Flow Rate FiO2 12/29/16 12:02 98.1 76 18 108/76 100 Room Air 12/29/16 11:37 98.1 12/29/16 08:47 98.4 12/29/16 08:00 98.1 65 18 117/80 100 Room Air 12/29/16 00:00 98.4 75 18 129/79 99 Room Air 12/28/16 20:00 98.1 72 18 121/81 99 Room Air 12/28/16 16:21 99.3 73 20 112/69 99 Room Air 20 Intake and Output 12/28/16 12/29/16 19:00 07:00 Intake Total 532.5 ml 702 ml Balance 532.5 ml 702 ml Intake IV Total 532.5 ml 702 ml # Voids 2 Laboratory Tests Test 12/29/16 07:50 White Blood Count 3.5 K/UL (4.8-10.8) L Red Blood Count 3.43 M/UL (4.20-5.40) L Hemoglobin 12.0 G/DL (12.0-16.0) Hematocrit 34.5 % (37.0-47.0) L Mean Corpuscular Volume 101 FL (80-99) H Mean Corpuscular Hemoglobin 35.0 PG (27.0-31.0) H Mean Corpuscular Hemoglobin Concent 34.8 G/DL (32.0-36.0) Red Cell Distribution Width 10.3 % (11.6-14.8) L Platelet Count 56 K/UL (150-450) L Mean Platelet Volume 8.4 FL (6.5-10.1) Neutrophils (%) (Auto) % (45.0-75.0) Lymphocytes (%) (Auto) % (20.0-45.0) Monocytes (%) (Auto) % (1.0-10.0) Eosinophils (%) (Auto) % (0.0-3.0) Basophils (%) (Auto) % (0.0-2.0) Differential Total Cells Counted 100 Neutrophils % (Manual) 75 % (45-75) Lymphocytes % (Manual) 14 % (20-45) L Monocytes % (Manual) 11 % (1-10) H Eosinophils % (Manual) 0 % (0-3) Basophils % (Manual) 0 % (0-2) Band Neutrophils 0 % (0-8) Platelet Estimate Decreased L Platelet Morphology Normal Anisocytosis 1+ Macrocytosis 1+ Sodium Level 135 mEQ/L (135-145) Potassium Level 2.8 mEQ/L (3.4-4.9) L Chloride Level 89 mEQ/L (98-107) L Carbon Dioxide Level 25 mEQ/L (20-30) Anion Gap 21 (5-15) H Blood Urea Nitrogen 4 mg/dL (7-23) L Creatinine 0.5 mg/dL (0.5-0.9) Estimat Glomerular Filtration Rate > 60 mL/min (>60) Glucose Level 111 mg/dL (74-106) H Calcium Level 9.5 mg/dL (8.6-10.2) Total Bilirubin 0.8 mg/dL (0.0-1.2) Aspartate Amino Transf (AST/SGOT) 121 U/L (5-40) H Alanine Aminotransferase (ALT/SGPT) 73 U/L (3-33) H Alkaline Phosphatase 122 U/L (35-104) H Total Protein 7.3 g/dL (6.6-8.7) Albumin 4.2 g/dL (3.5-5.2) Globulin 3.1 g/dL Albumin/Globulin Ratio 1.3 (1.0-2.7) Amylase Level 307 U/L (10-110) H Lipase 1200 U/L (< 60) H Height (Feet): 5 Height (Inches): 2.00 Weight (Pounds): 105 General Appearance: no apparent distress, alert Cardiovascular: normal rate Respiratory/Chest: normal breath sounds, no respiratory distress Abdominal Exam: normal bowel sounds, non tender, soft Extremities: normal range of motion Yaritza Marroquin N.P. Dec 29, 2016 14:04
[2016-12-29 16:14] VITALS: BP 128/86
--- NOTE | 2016-12-29 16:28 | Infectious Diseases Prog Note ---
Assessment/Plan Problems: (1) Acute pancreatitis Assessment & Plan: due to high cholesterol, CT scan of the abdomen, didn't show any necrosis or phlegmon, will stop zosyn , and monitor off antibiotics (2) Hyperlipidemia Assessment & Plan: suspect familial, recommend endocrinology consult , and to treat hyperlipidemia to prevent recurrent episode of pancreatitis (3) Nausea, vomiting, and diarrhea Assessment & Plan: due to number one, continue supportive care and pain management (4) Abdominal pain Assessment & Plan: due to pancreatitis , continue pain management as per primary (5) Nodule on liver Assessment & Plan: recommend follow up with GI, and repeated images Subjective Constitutional: Denies: anorexia, chills, drenching sweats, fatigue, fever, no symptoms, other HEENT: Denies: congestion, coryza, dysphagia, hearing change, no symptoms, other, visual change Respiratory: Denies: dry cough, no symptoms, other, productive cough, shortness of breath Cardiovascular: Denies: chest pain, dyspnea on exertion, no symptoms, other, palpitations Gastrointestinal/Abdominal: Reports: bloating, nausea, other - pain Genitourinary: Denies: dysuria, frequency, hematuria, last menstrual period, no symptoms, nocturia, other, vaginal bleed/discharge Neurologic: Denies: confusion, headache, no symptoms, numbness, other, weakness Psychiatric: Denies: anxiety, depression, no symptoms, other Skin: Denies: no symptoms, other, rash, ulcer Allergies: Coded Allergies: PEANUT (Unverified Allergy, Unknown, 07/26/14) SESAME OIL (Unverified Allergy, Unknown, 12/26/16) Objective Vital Signs Last 24 Hour Vital Signs Date Time Temp Pulse Resp B/P Pulse Ox O2 Delivery O2 Flow Rate FiO2 12/29/16 16:14 97.9 76 18 128/86 100 Room Air 12/29/16 12:02 98.1 76 18 108/76 100 Room Air 12/29/16 11:37 98.1 12/29/16 08:47 98.4 12/29/16 08:00 98.1 65 18 117/80 100 Room Air 12/29/16 00:00 98.4 75 18 129/79 99 Room Air 12/28/16 20:00 98.1 72 18 121/81 99 Room Air Height (Feet): 5 Height (Inches): 2.00 Weight (Pounds): 105 General Appearance: WD/WN, no acute distress HEENT: normocephalic, atraumatic, anicteric, mucous membranes moist Respiratory/Chest: chest wall non-tender, lungs clear, normal breath sounds, no respiratory distress, no accessory muscle use Cardiovascular: normal peripheral pulses, normal rate, regular rhythm Abdomen: normal bowel sounds, no organomegaly, non distended, no mass, no scars , hypoactive bowel sounds, tender Extremities: no cyanosis, no clubbing Skin: no rash, no lesions, no ulcers Laboratory Tests Test 12/29/16 07:50 White Blood Count 3.5 K/UL (4.8-10.8) L Red Blood Count 3.43 M/UL (4.20-5.40) L Hemoglobin 12.0 G/DL (12.0-16.0) Hematocrit 34.5 % (37.0-47.0) L Mean Corpuscular Volume 101 FL (80-99) H Mean Corpuscular Hemoglobin 35.0 PG (27.0-31.0) H Mean Corpuscular Hemoglobin Concent 34.8 G/DL (32.0-36.0) Red Cell Distribution Width 10.3 % (11.6-14.8) L Platelet Count 56 K/UL (150-450) L Mean Platelet Volume 8.4 FL (6.5-10.1) Neutrophils (%) (Auto) % (45.0-75.0) Lymphocytes (%) (Auto) % (20.0-45.0) Monocytes (%) (Auto) % (1.0-10.0) Eosinophils (%) (Auto) % (0.0-3.0) Basophils (%) (Auto) % (0.0-2.0) Differential Total Cells Counted 100 Neutrophils % (Manual) 75 % (45-75) Lymphocytes % (Manual) 14 % (20-45) L Monocytes % (Manual) 11 % (1-10) H Eosinophils % (Manual) 0 % (0-3) Basophils % (Manual) 0 % (0-2) Band Neutrophils 0 % (0-8) Platelet Estimate Decreased L Platelet Morphology Normal Anisocytosis 1+ Macrocytosis 1+ Sodium Level 135 mEQ/L (135-145) Potassium Level 2.8 mEQ/L (3.4-4.9) L Chloride Level 89 mEQ/L (98-107) L Carbon Dioxide Level 25 mEQ/L (20-30) Anion Gap 21 (5-15) H Blood Urea Nitrogen 4 mg/dL (7-23) L Creatinine 0.5 mg/dL (0.5-0.9) Estimat Glomerular Filtration Rate > 60 mL/min (>60) Glucose Level 111 mg/dL (74-106) H Calcium Level 9.5 mg/dL (8.6-10.2) Total Bilirubin 0.8 mg/dL (0.0-1.2) Aspartate Amino Transf (AST/SGOT) 121 U/L (5-40) H Alanine Aminotransferase (ALT/SGPT) 73 U/L (3-33) H Alkaline Phosphatase 122 U/L (35-104) H Total Protein 7.3 g/dL (6.6-8.7) Albumin 4.2 g/dL (3.5-5.2) Globulin 3.1 g/dL Albumin/Globulin Ratio 1.3 (1.0-2.7) Amylase Level 307 U/L (10-110) H Lipase 1200 U/L (< 60) H Current Medications Medications (Trade) Dose Ordered Sig/Huma Route PRN Reason Start Time Stop Time Status Last Admin Dose Admin Acetaminophen (Tylenol) 650 mg Q4H PRN ORAL T>100.5 12/27/16 17:15 01/26/17 17:14 Acetaminophen/ Hydrocodone Bitart ([place] 5/325) 1 tab Q4H PRN ORAL Moderate Pain (Pain Scale 4-6) 12/29/16 10:30 01/05/17 10:29 Al Hydroxide/Mg Hydroxide (Mylanta II) 30 ml Q6H PRN ORAL dyspepsia 12/27/16 19:15 01/26/17 19:14 Dextrose (Dextrose 50%) STAT PRN IV Hypoglycemia 12/28/16 13:15 01/27/17 13:14 Dextrose/ Electrolytes (D5 0.45%NS w/ KCl 40meq 1000ml) 1,000 ml @ 75 mls/hr [id number] IV 12/29/16 11:30 01/28/17 11:29 12/29/16 11:28 Diphenhydramine HCl (Benadryl) 25 mg Q6H PRN ORAL Itching/Pruritis 12/27/16 19:15 01/26/17 19:14 Famotidine (Pepcid I.v.) 20 mg QHS IVP 12/27/16 21:00 01/26/17 20:59 12/28/16 21:18 Morphine Sulfate (Morphine Sulfate) 2 mg Q4H PRN IVP Severe Pain (Pain Scale 7-10) 12/29/16 11:00 01/05/17 10:59 12/29/16 11:07 Nitroglycerin (Ntg) 0.4 mg Q5M X 3 DOSES PRN SL Prn Chest Pain 12/27/16 14:45 01/26/17 14:44 Piperacillin Sod/ Tazobactam Sod/ Sodium Chloride (Zosyn/Sodium Chloride) 110 ml @ 27.5 mls/hr EVERY 8 HOURS IVPB 12/27/16 22:00 12/31/16 21:59 12/29/16 13:43 Polyethylene Glycol (Miralax) 17 gm HSPRN PRN ORAL Constipation 12/28/16 13:15 01/27/17 13:14 Temazepam 15 mg 15 mg HSPRN PRN ORAL Insomnia 12/27/16 21:00 01/03/17 20:59 Bryce Thorpe M.D. Dec 29, 2016 16:28
[2016-12-29 20:36] VITALS: BP 133/87
[2016-12-29] MEDS: Famotidine 20 MG/ 2ML VIAL IVP SCH ×2 (21:31→21:32)
[2016-12-30] VITALS: BP 111/79
[2016-12-30] MEDS: Morphine Sulfate 2mg/ml Inj IVP PRN ×5 (00:25→19:31)
[2016-12-30 04:00] VITALS: BP 106/78
[2016-12-30] MEDS: D5 1/2NS w/KCl 40meq 1000ml 1,000 ML IV SCH ×3 (04:32→21:00)
[2016-12-30 07:05] LABS: MEAN CORPUSCULAR HEMOGLOBIN 35.7 PG (27.0-31.0); MEAN CORPUSCULAR HGB CONC 34.6 G/DL (32.0-36.0); MEAN CORPUSCULAR VOLUME 103 FL (80-99); MEAN PLATELET VOLUME 8.4 FL (6.5-10.1); PLATELET COUNT 78 K/UL (150-450); RED BLOOD COUNT 3.26 M/UL (4.20-5.40); RED CELL DISTRIBUTION WIDTH 9.9 % (11.6-14.8)
[2016-12-30 07:18] LABS: ALANINE AMINOTRANSFERASE 88 U/L (3-33); ALBUMIN/GLOBULIN RATIO 1.1 (1.0-2.7); ANION GAP 15 (5-15); ASPARTATE AMINO TRANSFERASE 150 U/L (5-40); CALCIUM 9.5 mg/dL (8.6-10.2); CARBON DIOXIDE 26 mEQ/L (20-30); CHLORIDE 92 mEQ/L (98-107); CREATININE 0.4 mg/dL (0.5-0.9); GLOMERULAR FILTRATION RATE > 60 mL/min (>60); POTASSIUM 3.3 mEQ/L (3.4-4.9); SODIUM 133 mEQ/L (135-145); TOTAL PROTEIN 7.2 g/dL (6.6-8.7)
[2016-12-30 07:19] LABS: HEMOLYSIS 28
[2016-12-30 07:32] LABS: LIPASE 1196 U/L (< 60)
[2016-12-30 08:55] VITALS: BP 125/73
[2016-12-30 09:52] LABS: BAND NEUTROPHILS % (MANUAL) 0 % (0-8); BASOPHILS % (MANUAL) 0 % (0-2); EOSINOPHILS % (MANUAL) 1 % (0-3); LYMPHOCYTES % (MANUAL) 10 % (20-45); NEUTROPHILS % (MANUAL) 77 % (45-75); PLATELET ESTIMATE DECREASED; TOTAL CELLS COUNTED 100
[2016-12-30 09:55] LABS: PLATELET MORPHOLOGY NORMAL
[2016-12-30 09:56] LABS: MACROCYTES 1+
--- NOTE | 2016-12-30 09:58 | GI Progress Note ---
Assessment/Plan Problems: (1) Thrombocytopenia ICD Codes: D69.6 - Thrombocytopenia, unspecified SNOMED: 424830005 (2) Hyperlipidemia ICD Codes: E78.5 - Hyperlipidemia, unspecified SNOMED: 29738533 (3) Abdominal pain ICD Codes: R10.9 - Unspecified abdominal pain SNOMED: 74033572 (4) Acute pancreatitis ICD Codes: K85.90 - Acute pancreatitis without necrosis or infection, unspecified SNOMED: 011143383 (5) Nausea, vomiting, and diarrhea ICD Codes: R11.2 - Nausea with vomiting, unspecified; R19.7 - Diarrhea, unspecified SNOMED: 4904696 (6) High triglycerides ICD Codes: E78.1 - Pure hyperglyceridemia SNOMED: 716608750 (7) Malnutrition ICD Codes: E46 - Unspecified protein-calorie malnutrition SNOMED: 8511733 Status: unchanged Status Narrative Discussed with Dr. Holt. Assessment/Plan abdominal U/S reviewed >> no gallstones Hep panel >> negative APCT reviewed >> (see chart for full report) - GB, CBD, pancreas all unremarkable. - 6mm right hepatic lobe liver lesion >> ordered MRI with hemangioma protocol FLD, adv as tolerated pain mgmt, tolerable monitor lipase levels >> no changes ~ 1999 dietary consult cholesterol mgmt fu labs Subjective Subjective c/o of pain, but tolerable no N/V able to tolerate CLD, wishes to adv wants to be discharged later today Objective Last 24 Hour Vital Signs Date Time Temp Pulse Resp B/P Pulse Ox O2 Delivery O2 Flow Rate FiO2 12/30/16 08:55 97.7 80 14 125/73 98 Room Air 12/30/16 04:00 97.7 84 20 106/78 99 Room Air 12/30/16 00:00 97.9 80 20 111/79 100 Room Air 12/29/16 20:36 98.1 79 19 133/87 100 Room Air 12/29/16 16:14 97.9 76 18 128/86 100 Room Air 12/29/16 12:02 98.1 76 18 108/76 100 Room Air 12/29/16 11:37 98.1 Intake and Output 12/29/16 12/30/16 19:00 07:00 Intake Total 1230 ml 990 ml Balance 1230 ml 990 ml Intake Oral 480 ml 240 ml IV Total 750 ml 750 ml # Voids 3 1 Laboratory Tests Test 12/30/16 05:10 White Blood Count 4.0 K/UL (4.8-10.8) L Red Blood Count 3.26 M/UL (4.20-5.40) L Hemoglobin 11.6 G/DL (12.0-16.0) L Hematocrit 33.6 % (37.0-47.0) L Mean Corpuscular Volume 103 FL (80-99) H Mean Corpuscular Hemoglobin 35.7 PG (27.0-31.0) H Mean Corpuscular Hemoglobin Concent 34.6 G/DL (32.0-36.0) Red Cell Distribution Width 9.9 % (11.6-14.8) L Platelet Count 78 K/UL (150-450) L Mean Platelet Volume 8.4 FL (6.5-10.1) Neutrophils (%) (Auto) % (45.0-75.0) Lymphocytes (%) (Auto) % (20.0-45.0) Monocytes (%) (Auto) % (1.0-10.0) Eosinophils (%) (Auto) % (0.0-3.0) Basophils (%) (Auto) % (0.0-2.0) Neutrophils % (Manual) Pending Lymphocytes % (Manual) Pending Platelet Estimate Pending Platelet Morphology Pending Sodium Level 133 mEQ/L (135-145) L Potassium Level 3.3 mEQ/L (3.4-4.9) L Chloride Level 92 mEQ/L (98-107) L Carbon Dioxide Level 26 mEQ/L (20-30) Anion Gap 15 (5-15) Blood Urea Nitrogen 3 mg/dL (7-23) L Creatinine 0.4 mg/dL (0.5-0.9) L Estimat Glomerular Filtration Rate > 60 mL/min (>60) Glucose Level 136 mg/dL (74-106) H Calcium Level 9.5 mg/dL (8.6-10.2) Total Bilirubin 0.7 mg/dL (0.0-1.2) Aspartate Amino Transf (AST/SGOT) 150 U/L (5-40) H Alanine Aminotransferase (ALT/SGPT) 88 U/L (3-33) H Alkaline Phosphatase 119 U/L (35-104) H Total Protein 7.2 g/dL (6.6-8.7) Albumin 3.9 g/dL (3.5-5.2) Globulin 3.3 g/dL Albumin/Globulin Ratio 1.1 (1.0-2.7) Lipase 1196 U/L (< 60) H Height (Feet): 5 Height (Inches): 2.00 Weight (Pounds): 105 General Appearance: no apparent distress, alert, thin Cardiovascular: normal rate Respiratory/Chest: normal breath sounds, no respiratory distress Abdominal Exam: normal bowel sounds, non tender, soft Extremities: normal range of motion Yaritza Marroquin N.P. Dec 30, 2016 09:58
[2016-12-30 12:06] VITALS: BP 121/73
--- NOTE | 2016-12-30 12:56 | Diagnostic Imaging Report ---
Clinical Indication: Abdominal pain Technique: Patient given oral contrast. IV administration nonionic contrast. Venous phase spiral acquisition obtained through the abdomen and pelvis. Multiplanar reconstructions were generated. Total dose length product 619 mGycm. CTDIvol(s) 12.8 mGy Comparison: Reference made to ultrasound due to 09/04/17 Findings: There is a small to moderate amount of free fluid within the pelvis. Uterus and ovaries appear unremarkable, no evidence of adnexal mass. There is no evidence of diverticulosis or diverticulitis. No small bowel distention or small bowel wall thickening. The appendix appears normal. Contrast is seen throughout the entirety of the small bowel and colon. The liver is diffusely hypoattenuating, and somewhat enlarged, consistent with fatty change. There is a 6 mm hyperattenuating focus in the dome of the right hepatic lobe, segment 7, surrounded by some very subtle lower attenuation. Gallbladder, bile ducts, pancreas, adrenals, spleen, kidneys are all unremarkable. No mesenteric or retroperitoneal mass or adenopathy. The included lung bases are clear. The bones are unremarkable. Impression: 6 mm hypoattenuating right hepatic lobe liver lesion. 6 mm hyperattenuation in the, the right hepatic lobe, surrounded by some subtle lower attenuation. This may reflect nodular enhancement in a hemangioma. Differential considerations include Hepatic adenoma, primary and metastatic malignancy. Consider further evaluation with CT or MRI with hemangioma protocol Somewhat enlarged fatty liver Small to moderate amount of free pelvic fluid, most likely physiologic, likely related to recent cyst or follicular rupture. Consider further evaluation with pelvic and endovaginal ultrasound if clinically indicated The CT scanner at [facility] is accredited by the [employer] and the scans are performed using protocols designed to limit radiation exposure to as low as reasonably achievable to attain images of sufficient resolution adequate for diagnostic evaluation.
[2016-12-30 13:55] LABS: CA 125 11.6 U/mL (0.0-38.1)
--- NOTE | 2016-12-30 15:01 | General Progress Note ---
Assessment/Plan Assessment/Plan IMPRESSION: 1. Thrombocytopenia, multifactorial, currently stable, with pancreatitis, better now >70k 2. Thrombocytopenia potentially 2/2 sepsis, on abx 3. Anemia of chronic disease. better 4. Leukopenia - eval for infection, currently stable 5. Gallstone pancreatitis. 6. Nausea and vomiting. 7. Diabetes mellitus. RECOMMENDATION: 1. Watch count. 2. Watch coagulopathy. 3. Dopplers rule out DVT show no e/o clots 4. Followup on GI evaluation, pulm recs. 5. MRI liver pending 6. Staff Thank you, Mick Fontana MD Subjective Constitutional: Reports: no symptoms HEENT: Reports: no symptoms Cardiovascular: Reports: no symptoms Respiratory: Reports: no symptoms Gastrointestinal/Abdominal: Reports: poor appetite Genitourinary: Reports: no symptoms Neurologic/Psychiatric: Reports: no symptoms Endocrine: Reports: no symptoms Hematologic/Lymphatic: Reports: anemia Allergies: Coded Allergies: PEANUT (Unverified Allergy, Unknown, 07/26/14) SESAME OIL (Unverified Allergy, Unknown, 12/26/16) Subjective stable, no fevers, chills, night sweats, not bleeding Objective Last 24 Hour Vital Signs Date Time Temp Pulse Resp B/P Pulse Ox O2 Delivery O2 Flow Rate FiO2 12/30/16 14:36 97.0 12/30/16 12:06 97.0 100 16 121/73 98 Room Air 12/30/16 08:55 97.7 80 14 125/73 98 Room Air 12/30/16 04:00 97.7 84 20 106/78 99 Room Air 12/30/16 00:00 97.9 80 20 111/79 100 Room Air 12/29/16 20:36 98.1 79 19 133/87 100 Room Air 12/29/16 16:14 97.9 76 18 128/86 100 Room Air Intake and Output 12/29/16 12/30/16 19:00 07:00 Intake Total 1230 ml 990 ml Balance 1230 ml 990 ml Intake Oral 480 ml 240 ml IV Total 750 ml 750 ml # Voids 3 1 Laboratory Tests 12/30/16 05:10: White Blood Count 4.0L, Red Blood Count 3.26L, Hemoglobin 11.6L, Hematocrit 33.6L, Mean Corpuscular Volume 103H, Mean Corpuscular Hemoglobin 35.7H, Mean Corpuscular Hemoglobin Concent 34.6, Red Cell Distribution Width 9.9L, Platelet Count 78L, Mean Platelet Volume 8.4, Neutrophils (%) (Auto) , Lymphocytes (%) ( Auto) , Monocytes (%) (Auto) , Eosinophils (%) (Auto) , Basophils (%) (Auto) , Differential Total Cells Counted 100, Neutrophils % (Manual) 77H, Lymphocytes % (Manual) 10L, Monocytes % (Manual) 12H, Eosinophils % (Manual) 1, Basophils % ( Manual) 0, Band Neutrophils 0, Platelet Estimate DecreasedL, Platelet Morphology Normal, Macrocytosis 1+, Sodium Level 133L, Potassium Level 3.3L, Chloride Level 92L, Carbon Dioxide Level 26, Anion Gap 15, Blood Urea Nitrogen 3L, Creatinine 0.4L, Estimat Glomerular Filtration Rate > 60, Glucose Level 136H , Calcium Level 9.5, Total Bilirubin 0.7, Aspartate Amino Transf (AST/SGOT) 150H , Alanine Aminotransferase (ALT/SGPT) 88H, Alkaline Phosphatase 119H, Total Protein 7.2, Albumin 3.9, Globulin 3.3, Albumin/Globulin Ratio 1.1, Lipase 1196H Height (Feet): 5 Height (Inches): 2.00 Weight (Pounds): 105 General Appearance: no apparent distress EENT: TMs normal Neck: supple Cardiovascular: regular rhythm Respiratory/Chest: lungs clear Abdomen: non tender Extremities: non-tender Edema: 1+ Leg (L), 1+ Leg (R) Edema: trace edema Neurologic: alert Skin: warm/dry Mick Fontana Dec 30, 2016 15:00
--- NOTE | 2016-12-30 15:26 | General Progress Note ---
Assessment/Plan Problem List: (1) Gallstone pancreatitis ICD Codes: K85.10 - Biliary acute pancreatitis without necrosis or infection; R19.7 - Diarrhea, unspecified SNOMED: 09189709 (2) Nausea, vomiting, and diarrhea ICD Codes: R11.2 - Nausea with vomiting, unspecified; R19.7 - Diarrhea, unspecified SNOMED: 8932093 (3) Abdominal pain ICD Codes: R10.9 - Unspecified abdominal pain SNOMED: 14627910 (4) Thrombocytopenia ICD Codes: D69.6 - Thrombocytopenia, unspecified SNOMED: 197432035 (5) Hypokalemia ICD Codes: E87.6 - Hypokalemia SNOMED: 54028512 Status: stable, progressing, tolerating diet Assessment/Plan ot pt diet gi hem neph f/u cbc bmp am dc plan Subjective Constitutional: Reports: weakness Allergies: Coded Allergies: PEANUT (Unverified Allergy, Unknown, 07/26/14) SESAME OIL (Unverified Allergy, Unknown, 12/26/16) All Systems: reviewed and negative except above Subjective sl abd pain Objective Last 24 Hour Vital Signs Date Time Temp Pulse Resp B/P Pulse Ox O2 Delivery O2 Flow Rate FiO2 12/30/16 14:36 97.0 12/30/16 12:06 97.0 100 16 121/73 98 Room Air 12/30/16 08:55 97.7 80 14 125/73 98 Room Air 12/30/16 04:00 97.7 84 20 106/78 99 Room Air 12/30/16 00:00 97.9 80 20 111/79 100 Room Air 12/29/16 20:36 98.1 79 19 133/87 100 Room Air 12/29/16 16:14 97.9 76 18 128/86 100 Room Air Intake and Output 12/29/16 12/30/16 19:00 07:00 Intake Total 1230 ml 990 ml Balance 1230 ml 990 ml Intake Oral 480 ml 240 ml IV Total 750 ml 750 ml # Voids 3 1 Laboratory Tests 12/30/16 05:10: White Blood Count 4.0L, Red Blood Count 3.26L, Hemoglobin 11.6L, Hematocrit 33.6L, Mean Corpuscular Volume 103H, Mean Corpuscular Hemoglobin 35.7H, Mean Corpuscular Hemoglobin Concent 34.6, Red Cell Distribution Width 9.9L, Platelet Count 78L, Mean Platelet Volume 8.4, Neutrophils (%) (Auto) , Lymphocytes (%) ( Auto) , Monocytes (%) (Auto) , Eosinophils (%) (Auto) , Basophils (%) (Auto) , Differential Total Cells Counted 100, Neutrophils % (Manual) 77H, Lymphocytes % (Manual) 10L, Monocytes % (Manual) 12H, Eosinophils % (Manual) 1, Basophils % ( Manual) 0, Band Neutrophils 0, Platelet Estimate DecreasedL, Platelet Morphology Normal, Macrocytosis 1+, Sodium Level 133L, Potassium Level 3.3L, Chloride Level 92L, Carbon Dioxide Level 26, Anion Gap 15, Blood Urea Nitrogen 3L, Creatinine 0.4L, Estimat Glomerular Filtration Rate > 60, Glucose Level 136H , Calcium Level 9.5, Total Bilirubin 0.7, Aspartate Amino Transf (AST/SGOT) 150H , Alanine Aminotransferase (ALT/SGPT) 88H, Alkaline Phosphatase 119H, Total Protein 7.2, Albumin 3.9, Globulin 3.3, Albumin/Globulin Ratio 1.1, Lipase 1196H Height (Feet): 5 Height (Inches): 2.00 Weight (Pounds): 105 General Appearance: alert EENT: normal ENT inspection Neck: normal alignment Cardiovascular: normal peripheral pulses, normal rate, regular rhythm Respiratory/Chest: chest wall non-tender, lungs clear, normal breath sounds Abdomen: normal bowel sounds, non tender, soft Extremities: normal inspection Edema: no edema noted Arm (L), no edema noted Arm (R), no edema noted Leg (L), no edema noted Leg (R), no edema noted Pedal (L), no edema noted Pedal (R), no edema noted Generalized Neurologic: responsive, motor weakness Skin: normal pigmentation, warm/dry SURYA PRICE Dec 30, 2016 15:26
--- NOTE | 2016-12-30 15:46 | Diagnostic Imaging Report ---
Indications: Abdominal pain, hepatic dome lesion on CT scan requiring further evaluation Technique: Coronal and axial T2-weighted single shot fast spin-echo breath-hold, axial T2-weighted fat-saturated fast spin-echo, fat saturated 2-D FIESTA, and dual echo spoiled gradient breath-hold, and LAVA sequences of the abdomen performed prior to IV gadolinium administration. Coronal and sequential axial LAVA sequences performed following IV gadolinium administration, the latter to 10 minutes post. Findings: Comparison: CT abdomen pelvis 12/28/2016 Sharply circumscribed 6 mm nodular focus of uniform signal change is present in hepatic segments 7 and epidural the liver. It demonstrates signal isointense to liver on nonfat saturated T2 images, slight signal hyperintensity on fat saturated images, intermediate uniform enhancement on postgadolinium images which persists through 10 minutes of imaging, gradually less intense. No additional similar or other different lesions are identified within the liver. Gallbladder, pancreas, spleen, adrenal glands, kidneys, remainder visualized abdominal anatomy unremarkable. Lung bases and adjacent pleural surfaces clear. Mild facet hypertrophy lower lumbar spine. Impression: 6 mm nodular enhancing lesion in liver dome, segment 7, corresponding to CT finding. Signal/enhancement characteristics do not favor diagnosis of hemangioma. Other more likely etiologies include focal nodular hyperplasia, hepatic adenoma. Small well-differentiated hepatocellular carcinoma less likely but not entirely excludable. Recommend followup MRI without and with gadolinium in 6 months..
[2016-12-30 16:06] VITALS: BP 122/76
[2016-12-30 20:25] VITALS: BP 107/76
--- NOTE | 2016-12-30 22:09 | Infectious Diseases Prog Note ---
Assessment/Plan Problems: (1) Acute pancreatitis Assessment & Plan: due to high cholesterol, CT scan of the abdomen, didn't show any necrosis or phlegmon, zosyn was D/C, WILL monitor off antibiotics (2) Hyperlipidemia Assessment & Plan: suspect familial, recommend endocrinology consult , and to treat hyperlipidemia to prevent recurrent episode of pancreatitis (3) Nausea, vomiting, and diarrhea Assessment & Plan: due to number one, continue supportive care and pain management (4) Abdominal pain Assessment & Plan: due to pancreatitis , continue pain management as per primary (5) Nodule on liver Assessment & Plan: possible adenoma or hyperplasia on MRI of the abdomen, further evaluation as per GI. Subjective Gastrointestinal/Abdominal: Reports: nausea, other - abdominal pain Allergies: Coded Allergies: PEANUT (Unverified Allergy, Unknown, 07/26/14) SESAME OIL (Unverified Allergy, Unknown, 12/26/16) All Systems: reviewed and negative except above Objective Vital Signs Last 24 Hour Vital Signs Date Time Temp Pulse Resp B/P Pulse Ox O2 Delivery O2 Flow Rate FiO2 12/30/16 20:25 97.3 70 19 107/76 99 Room Air 12/30/16 20:01 97.5 12/30/16 16:06 97.5 86 20 122/76 100 Room Air 12/30/16 12:06 97.0 100 16 121/73 98 Room Air 12/30/16 08:55 97.7 80 14 125/73 98 Room Air 12/30/16 04:00 97.7 84 20 106/78 99 Room Air 12/30/16 00:00 97.9 80 20 111/79 100 Room Air Height (Feet): 5 Height (Inches): 2.00 Weight (Pounds): 105 General Appearance: WD/WN, no acute distress HEENT: normocephalic, atraumatic, anicteric, mucous membranes moist, PERRL Respiratory/Chest: chest wall non-tender, lungs clear, normal breath sounds, no respiratory distress, no accessory muscle use Cardiovascular: normal peripheral pulses, normal rate, regular rhythm, no gallop/murmur, no JVD Abdomen: normal bowel sounds, no organomegaly, non distended, no mass, no scars , tender Extremities: no cyanosis, no clubbing Skin: no lesions Laboratory Tests Test 12/30/16 05:10 White Blood Count 4.0 K/UL (4.8-10.8) L Red Blood Count 3.26 M/UL (4.20-5.40) L Hemoglobin 11.6 G/DL (12.0-16.0) L Hematocrit 33.6 % (37.0-47.0) L Mean Corpuscular Volume 103 FL (80-99) H Mean Corpuscular Hemoglobin 35.7 PG (27.0-31.0) H Mean Corpuscular Hemoglobin Concent 34.6 G/DL (32.0-36.0) Red Cell Distribution Width 9.9 % (11.6-14.8) L Platelet Count 78 K/UL (150-450) L Mean Platelet Volume 8.4 FL (6.5-10.1) Neutrophils (%) (Auto) % (45.0-75.0) Lymphocytes (%) (Auto) % (20.0-45.0) Monocytes (%) (Auto) % (1.0-10.0) Eosinophils (%) (Auto) % (0.0-3.0) Basophils (%) (Auto) % (0.0-2.0) Differential Total Cells Counted 100 Neutrophils % (Manual) 77 % (45-75) H Lymphocytes % (Manual) 10 % (20-45) L Monocytes % (Manual) 12 % (1-10) H Eosinophils % (Manual) 1 % (0-3) Basophils % (Manual) 0 % (0-2) Band Neutrophils 0 % (0-8) Platelet Estimate Decreased L Platelet Morphology Normal Macrocytosis 1+ Sodium Level 133 mEQ/L (135-145) L Potassium Level 3.3 mEQ/L (3.4-4.9) L Chloride Level 92 mEQ/L (98-107) L Carbon Dioxide Level 26 mEQ/L (20-30) Anion Gap 15 (5-15) Blood Urea Nitrogen 3 mg/dL (7-23) L Creatinine 0.4 mg/dL (0.5-0.9) L Estimat Glomerular Filtration Rate > 60 mL/min (>60) Glucose Level 136 mg/dL (74-106) H Calcium Level 9.5 mg/dL (8.6-10.2) Total Bilirubin 0.7 mg/dL (0.0-1.2) Aspartate Amino Transf (AST/SGOT) 150 U/L (5-40) H Alanine Aminotransferase (ALT/SGPT) 88 U/L (3-33) H Alkaline Phosphatase 119 U/L (35-104) H Total Protein 7.2 g/dL (6.6-8.7) Albumin 3.9 g/dL (3.5-5.2) Globulin 3.3 g/dL Albumin/Globulin Ratio 1.1 (1.0-2.7) Lipase 1196 U/L (< 60) H Current Medications Medications (Trade) Dose Ordered Sig/Huma Route PRN Reason Start Time Stop Time Status Last Admin Dose Admin Acetaminophen (Tylenol) 650 mg Q4H PRN ORAL T>100.5 12/27/16 17:15 01/26/17 17:14 Acetaminophen/ Hydrocodone Bitart ([place] 5/325) 1 tab Q4H PRN ORAL Moderate Pain (Pain Scale 4-6) 12/29/16 10:30 01/05/17 10:29 Al Hydroxide/Mg Hydroxide (Mylanta II) 30 ml Q6H PRN ORAL dyspepsia 12/27/16 19:15 01/26/17 19:14 Dextrose (Dextrose 50%) STAT PRN IV Hypoglycemia 12/28/16 13:15 01/27/17 13:14 Dextrose/ Electrolytes (D5 0.45%NS w/ KCl 40meq 1000ml) 1,000 ml @ 75 mls/hr [id number] IV 12/29/16 11:30 01/28/17 11:29 12/30/16 21:00 Diphenhydramine HCl (Benadryl) 25 mg Q6H PRN ORAL Itching/Pruritis 12/27/16 19:15 01/26/17 19:14 Famotidine (Pepcid I.v.) 20 mg QHS IVP 12/27/16 21:00 01/26/17 20:59 12/29/16 21:32 Morphine Sulfate (Morphine Sulfate) 2 mg Q4H PRN IVP Severe Pain (Pain Scale 7-10) 12/29/16 11:00 01/05/17 10:59 12/30/16 19:31 Nitroglycerin (Ntg) 0.4 mg Q5M X 3 DOSES PRN SL Prn Chest Pain 12/27/16 14:45 01/26/17 14:44 Ondansetron HCl (Zofran) 4 mg Q4H PRN IVP Nausea & Vomiting 12/30/16 09:30 01/29/17 09:29 12/30/16 14:06 Polyethylene Glycol (Miralax) 17 gm HSPRN PRN ORAL Constipation 12/28/16 13:15 01/27/17 13:14 Temazepam 15 mg 15 mg HSPRN PRN ORAL Insomnia 12/27/16 21:00 01/03/17 20:59 Bryce Thorpe M.D. Dec 30, 2016 22:08
--- NOTE | 2016-12-30 22:38 | Nephrology Progress Note ---
Assessment/Plan Problem List: (1) Hyponatremia (2) Hypokalemia (3) Hyperlipidemia (4) Abdominal pain (5) Acute pancreatitis (6) Nausea, vomiting, and diarrhea (7) Transaminitis Plan Cont IVF. Replete K. Kcl added in IVF. add po kcl. Monitor labs. Subjective Subjective tolerating po intake. wants to go home. Objective Objective Last 24 Hour Vital Signs Date Time Temp Pulse Resp B/P Pulse Ox O2 Delivery O2 Flow Rate FiO2 12/30/16 20:25 97.3 70 19 107/76 99 Room Air 12/30/16 20:01 97.5 12/30/16 16:06 97.5 86 20 122/76 100 Room Air 12/30/16 12:06 97.0 100 16 121/73 98 Room Air 12/30/16 08:55 97.7 80 14 125/73 98 Room Air 12/30/16 04:00 97.7 84 20 106/78 99 Room Air 12/30/16 00:00 97.9 80 20 111/79 100 Room Air Intake and Output 12/29/16 12/30/16 19:00 07:00 Intake Total 1230 ml 990 ml Balance 1230 ml 990 ml Intake Oral 480 ml 240 ml IV Total 750 ml 750 ml # Voids 3 1 Laboratory Tests 12/30/16 05:10: White Blood Count 4.0L, Red Blood Count 3.26L, Hemoglobin 11.6L, Hematocrit 33.6L, Mean Corpuscular Volume 103H, Mean Corpuscular Hemoglobin 35.7H, Mean Corpuscular Hemoglobin Concent 34.6, Red Cell Distribution Width 9.9L, Platelet Count 78L, Mean Platelet Volume 8.4, Neutrophils (%) (Auto) , Lymphocytes (%) ( Auto) , Monocytes (%) (Auto) , Eosinophils (%) (Auto) , Basophils (%) (Auto) , Differential Total Cells Counted 100, Neutrophils % (Manual) 77H, Lymphocytes % (Manual) 10L, Monocytes % (Manual) 12H, Eosinophils % (Manual) 1, Basophils % ( Manual) 0, Band Neutrophils 0, Platelet Estimate DecreasedL, Platelet Morphology Normal, Macrocytosis 1+, Sodium Level 133L, Potassium Level 3.3L, Chloride Level 92L, Carbon Dioxide Level 26, Anion Gap 15, Blood Urea Nitrogen 3L, Creatinine 0.4L, Estimat Glomerular Filtration Rate > 60, Glucose Level 136H , Calcium Level 9.5, Total Bilirubin 0.7, Aspartate Amino Transf (AST/SGOT) 150H , Alanine Aminotransferase (ALT/SGPT) 88H, Alkaline Phosphatase 119H, Total Protein 7.2, Albumin 3.9, Globulin 3.3, Albumin/Globulin Ratio 1.1, Lipase 1196H Height (Feet): 5 Height (Inches): 2.00 Weight (Pounds): 105 General Appearance: no apparent distress Cardiovascular: normal rate, regular rhythm Respiratory/Chest: lungs clear Abdomen: non tender, soft Extremities: non-pitting Neurologic: alert, oriented x 3 CARL VICTOR Dec 30, 2016 22:38
[2016-12-31] VITALS: BP 100/64
[2016-12-31] MEDS: Morphine Sulfate 2mg/ml Inj IVP PRN ×3 (00:04→09:36)
[2016-12-31 04:00] VITALS: BP 105/75
[2016-12-31 06:59] LABS: BASOPHILS % (AUTO) 1.3 % (0.0-2.0); EOSINOPHILS % (AUTO) 2.6 % (0.0-3.0); LYMPHOCYTES % (AUTO) 18.2 % (20.0-45.0); MEAN CORPUSCULAR HEMOGLOBIN 36.6 PG (27.0-31.0); MEAN CORPUSCULAR HGB CONC 35.3 G/DL (32.0-36.0); MEAN CORPUSCULAR VOLUME 104 FL (80-99); MEAN PLATELET VOLUME 7.4 FL (6.5-10.1); NEUTROPHILS % (AUTO) 64.8 % (45.0-75.0); PLATELET COUNT 105 K/UL (150-450); RED BLOOD COUNT 3.38 M/UL (4.20-5.40); RED CELL DISTRIBUTION WIDTH 10.3 % (11.6-14.8); WHITE BLOOD COUNT 3.8 K/UL (4.8-10.8)
[2016-12-31 07:39] LABS: ALANINE AMINOTRANSFERASE 166 U/L (3-33); ALBUMIN/GLOBULIN RATIO 1.1 (1.0-2.7); ANION GAP 13 (5-15); ASPARTATE AMINO TRANSFERASE 307 U/L (5-40); CALCIUM 10.1 mg/dL (8.6-10.2); CARBON DIOXIDE 29 mEQ/L (20-30); CHLORIDE 94 mEQ/L (98-107); CREATININE 0.5 mg/dL (0.5-0.9); GLOMERULAR FILTRATION RATE > 60 mL/min (>60); HEMOLYSIS 5; SODIUM 136 mEQ/L (135-145); TOTAL PROTEIN 7.7 g/dL (6.6-8.7)
[2016-12-31 07:51] VITALS: BP 111/84
--- NOTE | 2016-12-31 10:26 | GI Progress Note ---
Assessment/Plan Problems: (1) Thrombocytopenia ICD Codes: D69.6 - Thrombocytopenia, unspecified SNOMED: 692985827 (2) Hyperlipidemia ICD Codes: E78.5 - Hyperlipidemia, unspecified SNOMED: 29703047 (3) Abdominal pain ICD Codes: R10.9 - Unspecified abdominal pain SNOMED: 63094532 (4) Acute pancreatitis ICD Codes: K85.90 - Acute pancreatitis without necrosis or infection, unspecified SNOMED: 894729865 (5) Nausea, vomiting, and diarrhea ICD Codes: R11.2 - Nausea with vomiting, unspecified; R19.7 - Diarrhea, unspecified SNOMED: 8522600 (6) High triglycerides ICD Codes: E78.1 - Pure hyperglyceridemia SNOMED: 562139429 (7) Malnutrition ICD Codes: E46 - Unspecified protein-calorie malnutrition SNOMED: 6668254 Status: stable Status Narrative Discussed with Dr. Holt. Assessment/Plan abdominal U/S reviewed >> no gallstones Hep panel >> negative APCT reviewed >> (see chart for full report) - GB, CBD, pancreas all unremarkable. - 6mm right hepatic lobe liver lesion >> ordered MRI with hemangioma protocol - fatty liver Abdominal MRI >> (see full report below) - 6 mm nodular enhancing lesion in liver dome, segment 7. - Signal/enhancement characteristics do not favor diagnosis of hemangioma. - More likely etiologies include focal nodular hyperplasia, hepatic adenoma. - Recommend followup MRI without and with gadolinium in 6 months elevated LFTs - AST:ALT 2:1 ratio of classic alcoholic liver disease elevated lipase levels - pt states abdominal pain has decreased drastically ok to DC per GI standpoint most likely alcoholic pancreatitis, however patient denies heavy drinking - pt instructed to follow up with PCP regarding repeat imaging study on liver nodule. - pt instructed to dc contraceptive - pt instructed to decrease ETOH ordered AFP marker adv to low fat diet today pain mgmt, tolerable monitor lipase levels dietary consult cholesterol mgmt fu labs Subjective Subjective c/o of min pain, but tolerable no N/V FLD, tolerating wants to be discharge dtoday Objective Last 24 Hour Vital Signs Date Time Temp Pulse Resp B/P Pulse Ox O2 Delivery O2 Flow Rate FiO2 12/31/16 07:51 97.5 65 18 111/84 97 Room Air 12/31/16 04:00 97.1 81 19 105/75 100 Room Air 12/31/16 00:00 97.5 67 20 100/64 99 Room Air 12/30/16 20:25 97.3 70 19 107/76 99 Room Air 12/30/16 20:01 97.5 12/30/16 16:06 97.5 86 20 122/76 100 Room Air 12/30/16 12:06 97.0 100 16 121/73 98 Room Air Intake and Output 12/30/16 12/31/16 19:00 07:00 Intake Total 775 ml 765 ml Output Total 100 ml Balance 675 ml 765 ml Intake Oral 250 ml 240 ml IV Total 525 ml 525 ml Output Urine Total 100 ml # Voids 2 2 Laboratory Tests Test 12/31/16 05:10 White Blood Count 3.8 K/UL (4.8-10.8) L Red Blood Count 3.38 M/UL (4.20-5.40) L Hemoglobin 12.4 G/DL (12.0-16.0) Hematocrit 35.1 % (37.0-47.0) L Mean Corpuscular Volume 104 FL (80-99) H Mean Corpuscular Hemoglobin 36.6 PG (27.0-31.0) H Mean Corpuscular Hemoglobin Concent 35.3 G/DL (32.0-36.0) Red Cell Distribution Width 10.3 % (11.6-14.8) L Platelet Count 105 K/UL (150-450) L Mean Platelet Volume 7.4 FL (6.5-10.1) Neutrophils (%) (Auto) 64.8 % (45.0-75.0) Lymphocytes (%) (Auto) 18.2 % (20.0-45.0) L Monocytes (%) (Auto) 13.0 % (1.0-10.0) H Eosinophils (%) (Auto) 2.6 % (0.0-3.0) Basophils (%) (Auto) 1.3 % (0.0-2.0) Sodium Level 136 mEQ/L (135-145) Potassium Level 4.0 mEQ/L (3.4-4.9) Chloride Level 94 mEQ/L (98-107) L Carbon Dioxide Level 29 mEQ/L (20-30) Anion Gap 13 (5-15) Blood Urea Nitrogen 3 mg/dL (7-23) L Creatinine 0.5 mg/dL (0.5-0.9) Estimat Glomerular Filtration Rate > 60 mL/min (>60) Glucose Level 117 mg/dL (74-106) H Calcium Level 10.1 mg/dL (8.6-10.2) Total Bilirubin 0.5 mg/dL (0.0-1.2) Aspartate Amino Transf (AST/SGOT) 307 U/L (5-40) H Alanine Aminotransferase (ALT/SGPT) 166 U/L (3-33) H Alkaline Phosphatase 124 U/L (35-104) H Total Protein 7.7 g/dL (6.6-8.7) Albumin 4.1 g/dL (3.5-5.2) Globulin 3.6 g/dL Albumin/Globulin Ratio 1.1 (1.0-2.7) Lipase Pending Height (Feet): 5 Height (Inches): 2.00 Weight (Pounds): 105 General Appearance: no apparent distress, alert, thin Cardiovascular: normal rate Respiratory/Chest: normal breath sounds, no respiratory distress Abdominal Exam: normal bowel sounds, non tender, soft Objective Procedure: MRI Abdomen w/wo Contrast Indications: Abdominal pain, hepatic dome lesion on CT scan requiring further evaluation Comparison: CT abdomen pelvis 12/28/2016 Sharply circumscribed 6 mm nodular focus of uniform signal change is present in hepatic segments 7 and epidural the liver. It demonstrates signal isointense to liver on nonfat saturated T2 images, slight signal hyperintensity on fat saturated images, intermediate uniform enhancement on postgadolinium images which persists through 10 minutes of imaging, gradually less intense. No additional similar or other different lesions are identified within the liver. Gallbladder, pancreas, spleen, adrenal glands, kidneys, remainder visualized abdominal anatomy unremarkable. Lung bases and adjacent pleural surfaces clear. Mild facet hypertrophy lower lumbar spine. Impression: 6 mm nodular enhancing lesion in liver dome, segment 7, corresponding to CT finding. Signal/enhancement characteristics do not favor diagnosis of hemangioma. Other more likely etiologies include focal nodular hyperplasia, hepatic adenoma. Small well-differentiated hepatocellular carcinoma less likely but not entirely excludable. Recommend followup MRI without and with gadolinium in 6 months.. Yaritza Marroquin N.P. Dec 31, 2016 10:26
--- NOTE | 2016-12-31 10:39 | Nephrology Progress Note ---
Assessment/Plan Problem List: (1) Hyponatremia (2) High triglycerides (3) Abdominal pain (4) Acute pancreatitis (5) Hyperlipidemia (6) Hypokalemia (7) Thrombocytopenia Plan Hyponatremia - resolved Hypokalemia- resolved- Continue IVF D5 1/2NS+20K Monitor lytes Pain management Hematology F/U GI F/U DC plan - home Subjective Constitutional: Denies: chills, diaphoresis, fever, malaise, no symptoms, other , weakness HEENT: Denies: blurred vision, double vision, ear discharge, ear pain, eye pain , mouth pain, mouth swelling, no symptoms, nose congestion, nose pain, other, tearing, throat pain, throat swelling Genitourinary: Denies: burning, discharge, flank pain, frequency, hematuria, incontinence, no symptoms, other, pain, urgency Neurologic/Psychiatric: Denies: anxiety, depressed, emotional problems, headache, no symptoms, numbness, other, paresthesia, pre-existing deficit, seizure, tingling, tremors, weakness Subjective States that she wants to go home Objective Objective Last 24 Hour Vital Signs Date Time Temp Pulse Resp B/P Pulse Ox O2 Delivery O2 Flow Rate FiO2 12/31/16 10:06 97.5 12/31/16 07:51 97.5 65 18 111/84 97 Room Air 12/31/16 04:00 97.1 81 19 105/75 100 Room Air 12/31/16 00:00 97.5 67 20 100/64 99 Room Air 12/30/16 20:25 97.3 70 19 107/76 99 Room Air 12/30/16 16:06 97.5 86 20 122/76 100 Room Air 12/30/16 12:06 97.0 100 16 121/73 98 Room Air Intake and Output 12/30/16 12/31/16 19:00 07:00 Intake Total 775 ml 765 ml Output Total 100 ml Balance 675 ml 765 ml Intake Oral 250 ml 240 ml IV Total 525 ml 525 ml Output Urine Total 100 ml # Voids 2 2 Laboratory Tests 12/31/16 05:10: White Blood Count 3.8L, Red Blood Count 3.38L, Hemoglobin 12.4, Hematocrit 35.1L , Mean Corpuscular Volume 104H, Mean Corpuscular Hemoglobin 36.6H, Mean Corpuscular Hemoglobin Concent 35.3, Red Cell Distribution Width 10.3L, Platelet Count 105L, Mean Platelet Volume 7.4, Neutrophils (%) (Auto) 64.8, Lymphocytes (%) (Auto) 18.2L, Monocytes (%) (Auto) 13.0H, Eosinophils (%) (Auto ) 2.6, Basophils (%) (Auto) 1.3, Sodium Level 136, Potassium Level 4.0, Chloride Level 94L, Carbon Dioxide Level 29, Anion Gap 13, Blood Urea Nitrogen 3L, Creatinine 0.5, Estimat Glomerular Filtration Rate > 60, Glucose Level 117H , Calcium Level 10.1, Total Bilirubin 0.5, Aspartate Amino Transf (AST/SGOT) 307H, Alanine Aminotransferase (ALT/SGPT) 166H, Alkaline Phosphatase 124H, Total Protein 7.7, Albumin 4.1, Globulin 3.6, Albumin/Globulin Ratio 1.1, Lipase [Pending] Height (Feet): 5 Height (Inches): 2.00 Weight (Pounds): 105 General Appearance: no apparent distress, alert EENT: normal ENT inspection Neck: normal alignment, supple, normal inspection Cardiovascular: normal rate, regular rhythm, no JVD Respiratory/Chest: lungs clear, normal breath sounds Abdomen: non tender, soft Extremities: non-tender, normal inspection Neurologic: alert, oriented x 3, responsive, normal mood/affect Naomi Duke N.P. Dec 31, 2016 10:39
[2016-12-31 10:53] LABS: LIPASE 923 U/L (< 60)
[2016-12-31] MEDS ORDERED: D5 1/2NS w/KCl 20mEq 1,000 ML IV SCH (11:30)
[2016-12-31 11:56] VITALS: BP 109/74
[2016-12-31] MEDS ORDERED: D5 1/2NS 1000ml IV ONE (13:24)
--- NOTE | 2016-12-31 18:14 | General Progress Note ---
Assessment/Plan Assessment/Plan IMPRESSION: 1. Thrombocytopenia, multifactorial, currently stable, with pancreatitis, better now >100k 2. Thrombocytopenia potentially 2/2 sepsis, on abx 3. Anemia of chronic disease. better 4. Leukopenia - eval for infection, currently stable 5. Gallstone pancreatitis. 6. Nausea and vomiting. 7. Diabetes mellitus. 8, Likely ETOH abuse RECOMMENDATION: 1. Watch count. 2. Watch coagulopathy. 3. Dopplers rule out DVT show no e/o clots 4. Followup on GI, pulm recs. 5. MRI reviewed, recheck in 6mo 6. Staff Thank you, Mick Fontana MD Subjective Constitutional: Reports: no symptoms HEENT: Reports: no symptoms Cardiovascular: Reports: no symptoms Respiratory: Reports: no symptoms Gastrointestinal/Abdominal: Reports: no symptoms Genitourinary: Reports: no symptoms Neurologic/Psychiatric: Reports: anxiety, weakness Endocrine: Reports: no symptoms Hematologic/Lymphatic: Reports: anemia Allergies: Coded Allergies: PEANUT (Unverified Allergy, Unknown, 07/26/14) SESAME OIL (Unverified Allergy, Unknown, 12/26/16) Subjective stable, no fevers, chills, night sweats, not bleeding at this time Objective Last 24 Hour Vital Signs Date Time Temp Pulse Resp B/P Pulse Ox O2 Delivery O2 Flow Rate FiO2 12/31/16 11:56 97.7 69 20 109/74 69 Room Air 12/31/16 10:06 97.5 12/31/16 07:51 97.5 65 18 111/84 97 Room Air 12/31/16 04:00 97.1 81 19 105/75 100 Room Air 12/31/16 00:00 97.5 67 20 100/64 99 Room Air 12/30/16 20:25 97.3 70 19 107/76 99 Room Air Intake and Output 12/30/16 12/31/16 19:00 07:00 Intake Total 775 ml 765 ml Output Total 100 ml Balance 675 ml 765 ml Intake Oral 250 ml 240 ml IV Total 525 ml 525 ml Output Urine Total 100 ml # Voids 2 2 Laboratory Tests 12/31/16 05:10: White Blood Count 3.8L, Red Blood Count 3.38L, Hemoglobin 12.4, Hematocrit 35.1L , Mean Corpuscular Volume 104H, Mean Corpuscular Hemoglobin 36.6H, Mean Corpuscular Hemoglobin Concent 35.3, Red Cell Distribution Width 10.3L, Platelet Count 105L, Mean Platelet Volume 7.4, Neutrophils (%) (Auto) 64.8, Lymphocytes (%) (Auto) 18.2L, Monocytes (%) (Auto) 13.0H, Eosinophils (%) (Auto ) 2.6, Basophils (%) (Auto) 1.3, Sodium Level 136, Potassium Level 4.0, Chloride Level 94L, Carbon Dioxide Level 29, Anion Gap 13, Blood Urea Nitrogen 3L, Creatinine 0.5, Estimat Glomerular Filtration Rate > 60, Glucose Level 117H , Calcium Level 10.1, Total Bilirubin 0.5, Aspartate Amino Transf (AST/SGOT) 307H, Alanine Aminotransferase (ALT/SGPT) 166H, Alkaline Phosphatase 124H, Total Protein 7.7, Albumin 4.1, Globulin 3.6, Albumin/Globulin Ratio 1.1, Lipase 923H 12/31/16 05:25: Alpha Fetoprotein [Pending] Height (Feet): 5 Height (Inches): 2.00 Weight (Pounds): 105 General Appearance: no apparent distress EENT: normal ENT inspection Neck: supple Cardiovascular: normal rate Respiratory/Chest: normal breath sounds Abdomen: normal bowel sounds Extremities: non-tender Edema: 1+ Leg (L), 1+ Leg (R) Edema: mild edema Neurologic: no motor/sensory deficits Skin: warm/dry Mick Fontana Dec 31, 2016 18:14
--- NOTE | 2017-01-01 19:50 | Discharge Summary ---
Discharge Summary Hospital Course Date of Admission Dec 26, 2016 at 11:49 Date of Discharge Dec 31, 2016 at 13:25 Admitting Diagnosis GALLSTONE, PANCREATITIS HPI Raiza Preciado is a 41 year old female who was admitted on Dec 26, 2016 at 11: 49 for Gallstones, Pancreatitis Hospital Course [id number] Discharge Discharge Disposition Patient was discharged to Home (01) Discharge Diagnoses: Stephanie Fermin NP Jan 01, 2017 19:50
--- NOTE | 2017-01-01 22:29 | Discharge Summary 2 SIG ---
DATE OF ADMISSION: 12/26/2016 DATE OF DISCHARGE: 12/31/2016 CONSULTANTS: 1. Villa Holt M.D. 2. Mick Fontana M.D. 3. Franklyn Rowe M.D. 4. Bryce Thorpe M.D. Brief Hospital Course: The patient is a 41-year-old female who came from home, presented to [facility] for complaints of abdominal pain, nausea and vomiting. On evaluation, lipase was greater than 3000. LFTs were elevated. Urine toxicology was negative. She was placed on NPO and was given IV hydration. MRI of the abdomen done showed a 6 millimeter nodular enhancing lesion in the liver, characteristic do not favor diagnosis of hemangioma. Diet was slowly advanced. Her electrolytes were monitored. Potassium was repleted. She was initially given IV Zosyn, however, her CT of the abdomen was negative for necrosis and phlegmon. Antibiotic was discontinued. Her blood count showed thrombocytopenia, which is potentially secondary to infection and was stable. She was tolerating diet well and was recommended followup MRI in 6 months with and without gadolinium. Her elevated LFTs with 2:1 ratio, classic of alcoholic liver disease although the patient denies heavy drinking. She was instructed to follow up with PCP regarding her repeat imaging and was instructed to discontinue use of contraceptives and alcohol. She was eventually discharged home to follow up with PCP. FINAL DIAGNOSES: 1. Acute pancreatitis. 2. Hypertriglyceridemia. 3. Thrombocytopenia. 4. Anemia of chronic disease. 5. Hyponatremia. 6. Hypokalemia. 7. Nodule on liver, possible adenoma or hyperplasia. 8. Possible alcoholic pancreatitis. 9. Unspecified protein-calorie malnutrition. Simon Gates D.O. I have been assigned to dictate discharge summary on this account and I was not involved in the patient's management. Stephanie Fermin N.P. DR: JOAN JOB#: [id number] CC: ANDRESSA
--- NOTE | 2017-01-02 21:50 | Diagnostic Imaging Report ---
APPROVED REPORT CPT Code: 09042 Present Symptoms Lower Extremity Pain: Bilateral BILATERAL: Imaging reveals a patent deep venous system bilaterally. There is no evidence of thrombus within the femoral, popliteal or tibial segments. The greater saphenous veins are also within normal limits. Doppler indicates normal spontaneous flow within these segments.
--- NOTE | 2017-01-05 09:52 | Diagnostic Imaging Report ---
Indication: Nausea, vomiting, abdominal pain Technique: Stark-scale and duplex images of the upper abdomen were obtained Comparison: Findings: . Gallbladder is unremarkable, without stones, wall thickening, nor pericholecystic fluid. There is equivocally a small amount of gallbladder sludge Sonographic Fuller's sign is negative. Common bile duct measures 5 mm in diameter. No intrahepatic biliary ductal dilatation. Liver demonstrates diffusely increased echogenicity, consistent with diffuse hepatocellular disease, most likely fatty change.. Portal vein and hepatic veins are patent.. Pancreas is unremarkable. Spleen is unremarkable. Left kidney measures 9.7 cm in length. Right kidney measures 10.1 cm length. Both kidneys demonstrate normal echogenicity. There is no hydronephrosis. No focal abnormality. . Non-aneurysmal abdominal aorta. Impression: Liver demonstrates diffusely increased echogenicity, consistent with diffuse hepatocellular disease, most likely fatty change. Negative for gallstones or dilated ducts. Equivocal small amount of gallbladder sludge
== END 2016-12-31 13:25 | disposition left against medical advice (07) | DRG 439 ==
LOC: EMR 08:54 → 2E 11:49 → EDBEDREQ 12:14 → 3E 12-27 14:35
DX: K85.90 Acute pancreatitis without necrosis or infection, unspecified (principal); E46 Unspecified protein-calorie malnutrition; D69.6 Thrombocytopenia, unspecified; K76.89 Other specified diseases of liver; Z68.1 Body mass index [BMI] 19.9 or less, adult; E11.9 Type 2 diabetes mellitus without complications; D63.8 Anemia in other chronic diseases classified elsewhere; E87.1 Hypo-osmolality and hyponatremia; F17.210 Nicotine dependence, cigarettes, uncomplicated; E78.5 Hyperlipidemia, unspecified; E78.1 Pure hyperglyceridemia; K85.20 Alcohol induced acute pancreatitis without necrosis or infection; E87.6 Hypokalemia; D13.4 Benign neoplasm of liver
CPT/HCPCS: 36415; 74177; 74183; 76700; 80048; 80053; 80061; 80300; 81003; 81025; 82105; 82140; 82150; 82248; 82378; 82728; 83010; 83036; 83540; 83550; 83615; 83690; 84702; 85007; 85025; 85379; 85610; 85651; 85730; 86301; 86304; 86703; 86705; 86709; 86803; 87340; 93005; 93970; J2405; J2765; J8499

== ENCOUNTER 2018-01-21 13:54 | Inpatient (IN) | payer SELFPAY ==
[~2018-01-21] VITALS: Ht 157.5 cm; Wt 49.0 kg
[~2018-01-21 13:54] MED LIST changes: +NKM
[2018-01-21 14:06] VITALS: BP 109/76
--- NOTE | 2018-01-21 14:12 | Emergency Room Report ---
History of Present Illness General Chief Complaint: Abdominal Pain Source: Patient Present Illness HPI 42year-old female presents with 2 days of nausea and vomiting and epigastric abdominal pain radiating to back and also RUQ. No associated diarrhea, previous abdominopelvic surgery or sick contacts. Patient got the flu vaccine this year. Has not been ill to keep anything down. Denies urinary complaints. States she had pancreatitis "years ago," unknown etiology. No history of heavy ETOH abuse or elevated cholesterol. Allergies: Coded Allergies: PEANUT (Unverified Allergy, Unknown, 07/26/14) SESAME OIL (Unverified Allergy, Unknown, 12/26/16) Patient History Past Medical History: none Past Surgical History: none Pertinent Family History: none Last Menstrual Period: 01/19/2018 Now: No Immunizations: UTD Reviewed Nursing Documentation: PMH: Agreed, PSxH: Agreed Nursing Documentation-PMH Past Medical History: No History, Except For Review of Systems All Other Systems: negative except mentioned in HPI Physical Exam Vital Signs Date Time Temp Pulse Resp B/P (MAP) Pulse Ox O2 Delivery O2 Flow Rate FiO2 01/21/18 13:56 97.4 105 18 109/76 98 Room Air 97.3 Sp02 EP Interpretation: reviewed, normal General Appearance: normal inspection, well appearing, no apparent distress, alert, GCS 15, non-toxic Head: normocephalic, atraumatic Eyes: bilateral eye PERRL, bilateral eye EOMI ENT: normal ENT inspection, hearing grossly normal, normal pharynx, no angioedema, normal voice, TMs + canals normal, uvula midline, moist mucus membranes Neck: normal inspection, full range of motion, supple, thyroid normal, no meningismus, no bony tend Respiratory: normal inspection, lungs clear, normal breath sounds, no rhonchi, no respiratory distress, no retraction, no accessory muscle use, no wheezing, speaking full sentences Cardiovascular #1: regular rate, rhythm, no edema, no JVD, normal capillary refill Gastrointestinal: normal inspection, normal bowel sounds, soft, no mass, no peritonitis, non-distended, no guarding, no hernia, no pulsatile mass, other - Mild epigastric ttp. No peritonitis. Genitourinary: no CVA tenderness Musculoskeletal: normal inspection, back normal, normal range of motion, no calf tenderness, pelvis stable, Ebony's Sign negative Neurologic: normal inspection, alert, oriented x3, responsive, horseradish maker III-XII nml as tested, motor strength/tone normal, cerebellar normal, normal gait, speech normal Psychiatric: normal inspection, judgement/insight normal, mood/affect normal, no suicidal/homicidal ideation, no delusions Skin: normal inspection, normal color, no rash Lymphatic: normal inspection, no adenopathy Medical Decision Making Diagnostic Impression: Primary Impression: Acute gallstone pancreatitis Additional Impression: Abdominal pain Qualified Codes: R10.13 - Epigastric pain ER Course 6-year-old female with epigastric pain radiating to the back and right upper quadrant pain with nausea and vomiting for 2 days. Vital signs stable, afebrile Labs significant for elevated LFTs and lipase of over 8000 Strong concern for gallstone pancreatitis She denies heavy drinking, history of elevated cholesterol. States she had pancreatitis previously, unknown etiology empiric Antibiotics were given Dr. Kyle consulted for GenSurg Endorsed for med/surg admit to Dr Gates at 409pm as previously admitting physician. Last Vital Signs Date Time Temp Pulse Resp B/P (MAP) Pulse Ox O2 Delivery O2 Flow Rate FiO2 01/21/18 13:56 97.4 105 18 109/76 98 Room Air 97.3 Status: improved Disposition: ADMITTED INPATIENT Condition: Serious JOLENE JVOEL M.D. Jan 21, 2018 14:12
[2018-01-21 15:02] LABS: HEMATOCRIT 44.3 % (37.0-47.0); HEMOGLOBIN 14.5 G/DL (12.0-16.0); MEAN CORPUSCULAR VOLUME 106 FL (80-99); PLATELET COUNT 90 K/UL (150-450); RED BLOOD COUNT 4.19 M/UL (4.20-5.40); RED CELL DISTRIBUTION WIDTH 13.4 % (11.6-14.8); WHITE BLOOD COUNT 5.1 K/UL (4.8-10.8)
[2018-01-21 15:20] LABS: ANION GAP 26 mmol/L (5-15); BLOOD UREA NITROGEN 11 mg/dL (7-18); CALCIUM 9.5 MG/DL (8.5-10.1); CARBON DIOXIDE 11 MMOL/L (21-32); CHLORIDE 95 MMOL/L (98-107); CREATININE 1.1 MG/DL (0.55-1.30); POTASSIUM 4.9 MMOL/L (3.5-5.1); SODIUM 132 MMOL/L (136-145)
[2018-01-21] MEDS ORDERED: LR 1000ml 1,000 ML IV STA (15:23)
[2018-01-21 15:30] LABS: ALANINE AMINOTRANSFERASE 187 U/L (12-78); ALBUMIN 4.8 G/DL (3.4-5.0); ALKALINE PHOSPHATASE 204 U/L (46-116); ASPARTATE AMINO TRANSFERASE 301 U/L (15-37); BILIRUBIN,TOTAL 1.2 MG/DL (0.2-1.0)
[2018-01-21 15:32] LABS: BILIRUBIN,DIRECT 0.5 MG/DL (0.0-0.3)
[2018-01-21] MEDS ORDERED: Morphine Sulfate 2mg/ml Inj IVP ONE (15:45)
[2018-01-21] MEDS ORDERED: cefOXitin 1gm Inj ONE (15:53)
[2018-01-21] MEDS: cefOXitin Sod 1 GM in D5W 55 ML IVPB STA ×2 (15:56→16:09)
[2018-01-21 16:05] VITALS: BP 116/69
[2018-01-21 18:00] VITALS: BP 120/78
[2018-01-21 18:38] LABS: APPEARANCE,URINE CLEAR; BILIRUBIN, URINE NEGATIVE (NEGATIVE); GLUCOSE, URINE (UA) NEGATIVE (NEGATIVE); KETONES,URINE 4+ (NEGATIVE); LEUKOCYTE ESTERASE ,URINE NEGATIVE (NEGATIVE); NITRITE,URINE NEGATIVE (NEGATIVE); PH,URINE 5 (4.5-8.0); PROTEIN,URINE 3+ (NEGATIVE); UROBILINOGEN,URINE NORMAL MG/DL (0.0-1.0)
[2018-01-21 18:39] LABS: COLOR,URINE YELLOW
[2018-01-21 18:59] VITALS: BP 143/91
[2018-01-21] MEDS ORDERED: Pneumococcal Vaccine 25mcg/0.5ml IM ONE (19:00)
[2018-01-21] MEDS ORDERED: LORazepam 1mg tab ORAL PRN (19:00)
[2018-01-21] MEDS ORDERED: Nitroglycerin Subl 0.4mg tab SL PRN (19:00)
[2018-01-21] MEDS ORDERED: Flu Vaccine Quadrivalent 0.5ml IM ONE (19:00)
[2018-01-21] MEDS ORDERED: Enoxaparin 30mg Inj SUBQ SCH (20:00)
[2018-01-21] MEDS: Docusate 100mg cap ORAL SCH (21:54)
[2018-01-21] MEDS: Morphine Sulfate 2mg/ml Inj IVP PRN (21:57)
[2018-01-22] VITALS: BP 140/80
[2018-01-22 04:00] VITALS: BP 132/85
[2018-01-22] MEDS: Morphine Sulfate 2mg/ml Inj IVP PRN ×5 (06:15→23:29)
[2018-01-22 07:41] LABS: HEMATOCRIT 38.7 % (37.0-47.0); MEAN CORPUSCULAR VOLUME 105 FL (80-99); PLATELET COUNT 66 K/UL (150-450); RED CELL DISTRIBUTION WIDTH 13.5 % (11.6-14.8); WHITE BLOOD COUNT 7.1 K/UL (4.8-10.8)
[2018-01-22 08:00] VITALS: BP 124/82
[2018-01-22 08:01] LABS: ALANINE AMINOTRANSFERASE 141 U/L (12-78); ALBUMIN 4.1 G/DL (3.4-5.0); ALBUMIN/GLOBULIN RATIO 0.9 (1.0-2.7); ALKALINE PHOSPHATASE 161 U/L (46-116); ANION GAP 21 mmol/L (5-15); ASPARTATE AMINO TRANSFERASE 204 U/L (15-37); BILIRUBIN,TOTAL 1.6 MG/DL (0.2-1.0); BLOOD UREA NITROGEN 5 mg/dL (7-18); CARBON DIOXIDE 12 MMOL/L (21-32); CHLORIDE 96 MMOL/L (98-107); SODIUM 129 MMOL/L (136-145)
[2018-01-22 08:04] LABS: BILIRUBIN,DIRECT 0.7 MG/DL (0.0-0.3)
--- NOTE | 2018-01-22 08:36 | Diagnostic Imaging Report ---
Indication: Abdominal pain, vomiting, abnormal liver function tests, history of pancreatitis Technique: Stark-scale and duplex images of the upper abdomen were obtained Comparison: To 09/04/2017 Findings: Gallbladder demonstrates sludge and questionably tiny gallstones. The wall is not thickened and there is no pericholecystic fluid. Sonographic Fuller's sign is negative. Common bile duct measures 5 mm in diameter. No intrahepatic biliary ductal dilatation. Liver demonstrates coarsened echotexture, no focal abnormality Portal vein and hepatic veins are patent. Pancreas is unremarkable. Spleen is unremarkable. Left kidney measures 10.4 cm in length. Right kidney measures 10.3 cm length. Both kidneys demonstrate normal echogenicity. There is no hydronephrosis. There are small cysts in the left kidney. Hyperechoic focus in the left renal sinus is nonshadowing, could represent a small stone versus artifact, not evident previously . Non-aneurysmal abdominal aorta . Impression: Gallbladder sludge possible tiny stones. Negative for dilated ducts Coarsened hepatic echogenicity, compatible with diffuse hepatocellular disease, also described previously Incidental finding left renal cyst Echogenic shadowing focus within the left renal sinus, could represent a nonobstructive calculus or could be artifactual. Negative for hydronephrosis This agrees with the preliminary interpretation provided overnight by [facility] teleradiology service.
[2018-01-22] MEDS ORDERED: Zolpidem 5mg tab ORAL PRN (09:15)
--- NOTE | 2018-01-22 09:32 | Consultation ---
History of Present Illness General Date patient seen: Jan 22, 2018 Time patient seen: 07:00 - am Chief Complaint: Abdominal pain Referring physician: Adriel Reason for Consultation: Pain Management Present Illness HPI This is a 42 y/o female who has been c/o severe 10/10 abdominal pain for the past 3 days, the pain is sharp and stabbing constant and acute. She has been diagnosed with pancreatitis started on Morphine 1mg IV Q8H PRN with minimal pain relief and we were consulted so patient will have adequate pain relief while here in the hospital. Allergies: Coded Allergies: PEANUT (Unverified Allergy, Unknown, 07/26/14) SESAME OIL (Unverified Allergy, Unknown, 12/26/16) Medication History No Active Prescriptions or Reported Meds Patient History History Provided By: Patient Healthcare decision maker Resuscitation status Full Code Advanced Directive on File No Past Medical/Surgical History Past Medical/Surgical History: (1) Nodule on liver (2) Hyponatremia (3) Thrombocytopenia (4) Hypokalemia (5) Hyperlipidemia (6) High triglycerides Review of Systems Constitutional: Reports: no symptoms Eye: Reports: no symptoms ENT: Reports: no symptoms Respiratory: Reports: no symptoms Cardiovascular: Reports: no symptoms Gastrointestinal: Reports: abdominal pain, nausea, vomiting Genitourinary: Reports: no symptoms Musculoskeletal: Reports: no symptoms Skin: Reports: no symptoms Psychiatric: Reports: no symptoms Neurological: Reports: no symptoms Endocrine: Reports: no symptoms Hematologic/Lymphatic: Reports: no symptoms Physical Exam General Appearance: no apparent distress, alert HEENT: PERRL, EOMI Neck: non-tender, supple Respiratory/Chest: lungs clear, normal breath sounds Cardiovascular/Chest: normal rate, regular rhythm Abdomen: tender Extremities: normal range of motion, non-tender, normal inspection Skin Exam: warm/dry Neurologic: alert, oriented x 3 Last 24 Hour Vital Signs Date Time Temp Pulse Resp B/P (MAP) Pulse Ox O2 Delivery O2 Flow Rate FiO2 01/22/18 08:00 98.6 91 17 124/82 100 Room Air 98.6 01/22/18 04:00 98.5 90 18 132/85 100 Room Air 98.5 01/22/18 00:00 97.6 87 19 140/80 100 Room Air 97.6 01/21/18 18:59 98.0 114 22 143/91 97 Room Air 98.0 01/21/18 18:40 98.5 95 21 120/78 98 Room Air 98.7 01/21/18 18:00 98.5 95 21 120/78 98 Room Air 98.5 01/21/18 16:26 98.0 01/21/18 16:05 98.7 94 23 116/69 97 Room Air 98.7 01/21/18 14:06 97.4 91 18 109/76 100 Room Air 97.4 01/21/18 13:56 97.4 105 18 109/76 98 Room Air 97.3 Intake and Output 01/21/18 01/22/18 19:00 07:00 Intake Total 1055 ml 1000 ml Balance 1055 ml 1000 ml Intake IV Total 1055 ml 1000 ml # Voids 1 4 Laboratory Tests Test 01/21/18 14:45 01/21/18 16:50 01/21/18 18:00 01/22/18 07:05 White Blood Count 5.1 K/UL (4.8-10.8) 7.1 K/UL (4.8-10.8) Red Blood Count 4.19 M/UL (4.20-5.40) L 3.70 M/UL (4.20-5.40) L Hemoglobin 14.5 G/DL (12.0-16.0) 13.0 G/DL (12.0-16.0) Hematocrit 44.3 % (37.0-47.0) 38.7 % (37.0-47.0) Mean Corpuscular Volume 106 FL (80-99) H 105 FL (80-99) H Mean Corpuscular Hemoglobin 34.7 PG (27.0-31.0) H 35.2 PG (27.0-31.0) H Mean Corpuscular Hemoglobin Concent 32.8 G/DL (32.0-36.0) 33.7 G/DL (32.0-36.0) Red Cell Distribution Width 13.4 % (11.6-14.8) 13.5 % (11.6-14.8) Platelet Count 90 K/UL (150-450) L 66 K/UL (150-450) L Mean Platelet Volume 6.4 FL (6.5-10.1) L 9.7 FL (6.5-10.1) Neutrophils (%) (Auto) % (45.0-75.0) % (45.0-75.0) Lymphocytes (%) (Auto) % (20.0-45.0) % (20.0-45.0) Monocytes (%) (Auto) % (1.0-10.0) % (1.0-10.0) Eosinophils (%) (Auto) % (0.0-3.0) % (0.0-3.0) Basophils (%) (Auto) % (0.0-2.0) % (0.0-2.0) Differential Total Cells Counted 100 Neutrophils % (Manual) 84 % (45-75) H Pending Lymphocytes % (Manual) 7 % (20-45) L Pending Monocytes % (Manual) 7 % (1-10) Eosinophils % (Manual) 0 % (0-3) Basophils % (Manual) 0 % (0-2) Band Neutrophils 2 % (0-8) Platelet Estimate Decreased L Pending Platelet Morphology Normal Pending Polychromasia 1+ Macrocytosis 1+ Sodium Level 132 MMOL/L (136-145) L 129 MMOL/L (136-145) L Potassium Level 4.9 MMOL/L (3.5-5.1) 5.0 MMOL/L (3.5-5.1) Chloride Level 95 MMOL/L (98-107) L 96 MMOL/L (98-107) L Carbon Dioxide Level 11 MMOL/L (21-32) L 12 MMOL/L (21-32) L Anion Gap 26 mmol/L (5-15) H 21 mmol/L (5-15) H Blood Urea Nitrogen 11 mg/dL (7-18) 5 mg/dL (7-18) L Creatinine 1.1 MG/DL (0.55-1.30) 1.0 MG/DL (0.55-1.30) Estimat Glomerular Filtration Rate 55.0 mL/min (>60) > 60 mL/min (>60) Glucose Level 98 MG/DL (74-106) 155 MG/DL (74-106) H Lactic Acid Level 3.30 mmol/L (0.66-2.22) H 3.50 mmol/L (0.66-2.22) H Calcium Level 9.5 MG/DL (8.5-10.1) 9.0 MG/DL (8.5-10.1) Total Bilirubin 1.2 MG/DL (0.2-1.0) H 1.6 MG/DL (0.2-1.0) H Direct Bilirubin 0.5 MG/DL (0.0-0.3) H 0.7 MG/DL (0.0-0.3) H Aspartate Amino Transf (AST/SGOT) 301 U/L (15-37) H 204 U/L (15-37) H Alanine Aminotransferase (ALT/SGPT) 187 U/L (12-78) H 141 U/L (12-78) H Alkaline Phosphatase 204 U/L (46-116) H 161 U/L (46-116) H Total Protein 9.8 G/DL (6.4-8.2) H 8.5 G/DL (6.4-8.2) H Albumin 4.8 G/DL (3.4-5.0) 4.1 G/DL (3.4-5.0) Globulin 5.0 g/dL 4.4 g/dL Albumin/Globulin Ratio 1.0 (1.0-2.7) 0.9 (1.0-2.7) L Lipase 8538 U/L (73-393) H 5272 U/L (73-393) H Human Chorionic Gonadotropin, Quant 1 mIU/mL (1-6) Urine Color Yellow Urine Appearance Clear Urine pH 5 (4.5-8.0) Urine Specific [place] 1.025 (1.005-1.035) Urine Protein 3+ (NEGATIVE) H Urine Glucose (UA) Negative (NEGATIVE) Urine Ketones 4+ (NEGATIVE) H Urine Occult Blood 2+ (NEGATIVE) H Urine Nitrite Negative (NEGATIVE) Urine Bilirubin Negative (NEGATIVE) Urine Urobilinogen Normal MG/DL (0.0-1.0) Urine Leukocyte Esterase Negative (NEGATIVE) Urine RBC 2-4 /HPF (0 - 2) H Urine WBC 0-2 /HPF (0 - 2) Urine Squamous Epithelial Cells Few /LPF (NONE/OCC) Urine Bacteria Few /HPF (NONE) Height (Feet): 5 Height (Inches): 2.00 Weight (Pounds): 108 Medications Current Medications Medications (Trade) Dose Ordered Sig/Huma Route PRN Reason Start Time Stop Time Status Last Admin Dose Admin Acetaminophen (Tylenol) 650 mg Q4H PRN ORAL Mild Pain (Pain Scale 1-3) 01/21/18 19:00 02/20/18 18:59 Dextrose (Dextrose 50%) STAT PRN IV Hypoglycemia 01/21/18 19:00 02/20/18 18:59 Docusate Sodium (Colace) 100 mg EVERY 12 HOURS ORAL 01/21/18 21:00 02/20/18 20:59 01/21/18 21:54 Enoxaparin Sodium (Lovenox) 30 mg DAILY SUBQ 01/22/18 09:00 02/21/18 08:59 UNV Lorazepam (Ativan) 1 mg Q4H PRN ORAL For Anxiety 01/21/18 19:00 01/28/18 18:59 Morphine Sulfate (Morphine Sulfate) 2 mg Q4H PRN IVP severe pain 01/22/18 09:15 01/28/18 21:14 Nitroglycerin (Ntg) 0.4 mg Q5M X 3 DOSES PRN SL Prn Chest Pain 01/21/18 19:00 02/20/18 18:59 Ondansetron HCl (Zofran) 4 mg Q4HR PRN IVP Nausea & Vomiting 01/21/18 21:15 02/20/18 21:14 01/22/18 06:15 Pantoprazole (Protonix) 40 mg DAILY IVP 01/22/18 09:00 02/21/18 08:59 Sodium Chloride 1,000 ml @ 125 mls/hr Q8H IVLG 01/21/18 19:54 02/20/18 19:53 01/22/18 03:33 Zolpidem Tartrate (Ambien) 5 mg HSPRN PRN ORAL Insomnia 01/21/18 19:00 01/28/18 18:59 Assessment/Plan Assessment/Plan (1) Intractable abdominal pain (2) Acute pancreatitis Patient will be increased on Morphine 2mg IV Q4H PRN severe pain and started on Ambien 5mg PO 1 tab QHS PRN insomnia. EDGAR SUAREZ Jan 22, 2018 09:32
[2018-01-22] MEDS: Docusate 100mg cap ORAL SCH ×2 (09:36→20:27)
[2018-01-22] MEDS: Pantoprazole Inj IVP SCH (09:36)
--- NOTE | 2018-01-22 11:02 | Diagnostic Imaging Report ---
Indication: Abdominal pain Technique: One view of the chest Comparison: 07/26/2014 Findings: Lungs and pleural spaces are clear. Heart size is normal. No significant interim change Impression: No acute process
[2018-01-22 12:00] VITALS: BP 135/79
--- NOTE | 2018-01-22 12:10 | Consultation ---
History of Present Illness General Date patient seen: Jan 22, 2018 Chief Complaint: Abdominal Pain Referring physician: Adriel Reason for Consultation: gallstone pancreatitis Present Illness HPI 42 year old female with no significant past medical history presented with worsening abdominal pain x 3 days. As per patient, she first started to notice some vague upper abdominal pain 3 days ago and since it worsened till day of admission when it was 10/10. pain cramping upper epigastric pain with radiation to right and left upper quadrants. pain associated with nausea and multiple episodes of non bloody bilious emesis. She decided to come to ED for evaluation as pain worsened. In ED noted to have elevated LFT's and lipase. Ultrasound demonstrated stones and sludge. Surgery called to evaluate for gallstone pancreatitis. Patient states she had episodes of pancreatitis years ago and was hospitalized for 3 days at [facility] but does not recall being given etiology of pancreatitis. States she was eating well until onset of pain, n/v. last BM 3 days ago. states she has a glass of wine with dinner occasionally and has more drinks on special occasions but no heavy EtOH history. Allergies: Coded Allergies: PEANUT (Unverified Allergy, Unknown, 07/26/14) SESAME OIL (Unverified Allergy, Unknown, 12/26/16) Medication History No Active Prescriptions or Reported Meds Patient History History Provided By: Patient Healthcare decision maker Resuscitation status Full Code Advanced Directive on File No Past Medical/Surgical History Past Medical/Surgical History: (1) Upper respiratory infection (2) UTI (urinary tract infection) (3) Malnutrition (4) Transaminitis (5) Acute pancreatitis (6) Abdominal pain (7) Acute gallstone pancreatitis (8) Hypokalemia (9) Hyperlipidemia (10) Hyponatremia (11) Thrombocytopenia (12) High triglycerides (13) Nodule on liver Review of Systems Constitutional: Denies: no symptoms, see HPI, chills, sweats, fever, malaise, weakness, other Eye: Denies: no symptoms, see HPI, eye pain, blurred vision, tearing, double vision, nose pain, nose congestion, acuity changes, discharge, other ENT: Denies: no symptoms, see HPI, ear pain, ear discharge, nose pain, nose congestion, throat pain, throat swelling, mouth pain, hearing loss, nasal discharge, other Respiratory: Denies: no symptoms, see HPI, cough, orthopnea, shortness of breath, stridor, wheezing, LOO, sputum, other Cardiovascular: Denies: no symptoms, see HPI, chest pain, edema, palpitations, syncope, PND, other Gastrointestinal: Reports: abdominal pain, nausea, vomiting Genitourinary: Denies: no symptoms, see HPI, discharge, dysuria, frequency, hematuria, pain, retention, incontinence, urgency, vag bleed/dc, other Musculoskeletal: Denies: no symptoms, see HPI, back pain, gout, joint pain, joint swelling, muscle pain, muscle stiffness, other Skin: Denies: no symptoms, see HPI, rash, change in color, change in hair/nails , dryness, lesions, other Psychiatric: Denies: no symptoms, see HPI, prior hx, anxiety, depressed feelings, emotional problems, SI, HI, hallucinations, other Neurological: Denies: no symptoms, see HPI, headache, numbness, paresthesia, seizure, tingling, tremors, focal weakness, syncope, dizziness, other Endocrine: Denies: no symptoms, see HPI, excessive sweating, flushing, intolerance to temperature, increased thirst, increased urine, unexplained weight loss, other Hematologic/Lymphatic: Denies: no symptoms, see HPI, anemia, blood clots, easy bleeding, easy bruising, swollen glands, diathesis, other Physical Exam General Appearance: no apparent distress, alert Lines, tubes and drains: peripheral HEENT: normocephalic, atraumatic, PERRL Neck: normal alignment, normal inspection Respiratory/Chest: chest wall non-tender, lungs clear, normal breath sounds, no respiratory distress, no accessory muscle use Cardiovascular/Chest: normal peripheral pulses, normal rate, regular rhythm Abdomen: normal bowel sounds, soft, no organomegaly, no mass, tender - mild discomfort with epigastric palpation Extremities: normal range of motion, non-tender, normal inspection Skin Exam: normal pigmentation, warm/dry Neurologic: alert, oriented x 3, responsive Last 24 Hour Vital Signs Date Time Temp Pulse Resp B/P (MAP) Pulse Ox O2 Delivery O2 Flow Rate FiO2 01/22/18 10:07 98.6 01/22/18 08:00 98.6 91 17 124/82 100 Room Air 98.6 01/22/18 04:00 98.5 90 18 132/85 100 Room Air 98.5 01/22/18 00:00 97.6 87 19 140/80 100 Room Air 97.6 01/21/18 18:59 98.0 114 22 143/91 97 Room Air 98.0 01/21/18 18:40 98.5 95 21 120/78 98 Room Air 98.7 01/21/18 18:00 98.5 95 21 120/78 98 Room Air 98.5 01/21/18 16:26 98.0 01/21/18 16:05 98.7 94 23 116/69 97 Room Air 98.7 01/21/18 14:06 97.4 91 18 109/76 100 Room Air 97.4 01/21/18 13:56 97.4 105 18 109/76 98 Room Air 97.3 Intake and Output 01/21/18 01/22/18 19:00 07:00 Intake Total 1055 ml 1000 ml Balance 1055 ml 1000 ml Intake IV Total 1055 ml 1000 ml # Voids 1 4 Laboratory Tests Test 01/21/18 14:45 01/21/18 16:50 01/21/18 18:00 01/22/18 07:05 White Blood Count 5.1 K/UL (4.8-10.8) 7.1 K/UL (4.8-10.8) Red Blood Count 4.19 M/UL (4.20-5.40) L 3.70 M/UL (4.20-5.40) L Hemoglobin 14.5 G/DL (12.0-16.0) 13.0 G/DL (12.0-16.0) Hematocrit 44.3 % (37.0-47.0) 38.7 % (37.0-47.0) Mean Corpuscular Volume 106 FL (80-99) H 105 FL (80-99) H Mean Corpuscular Hemoglobin 34.7 PG (27.0-31.0) H 35.2 PG (27.0-31.0) H Mean Corpuscular Hemoglobin Concent 32.8 G/DL (32.0-36.0) 33.7 G/DL (32.0-36.0) Red Cell Distribution Width 13.4 % (11.6-14.8) 13.5 % (11.6-14.8) Platelet Count 90 K/UL (150-450) L 66 K/UL (150-450) L Mean Platelet Volume 6.4 FL (6.5-10.1) L 9.7 FL (6.5-10.1) Neutrophils (%) (Auto) % (45.0-75.0) % (45.0-75.0) Lymphocytes (%) (Auto) % (20.0-45.0) % (20.0-45.0) Monocytes (%) (Auto) % (1.0-10.0) % (1.0-10.0) Eosinophils (%) (Auto) % (0.0-3.0) % (0.0-3.0) Basophils (%) (Auto) % (0.0-2.0) % (0.0-2.0) Differential Total Cells Counted 100 100 Neutrophils % (Manual) 84 % (45-75) H 94 % (45-75) H Lymphocytes % (Manual) 7 % (20-45) L 5 % (20-45) L Monocytes % (Manual) 7 % (1-10) 1 % (1-10) Eosinophils % (Manual) 0 % (0-3) 0 % (0-3) Basophils % (Manual) 0 % (0-2) 0 % (0-2) Band Neutrophils 2 % (0-8) 0 % (0-8) Platelet Estimate Decreased L Decreased L Platelet Morphology Normal Normal Polychromasia 1+ Macrocytosis 1+ 1+ Sodium Level 132 MMOL/L (136-145) L 129 MMOL/L (136-145) L Potassium Level 4.9 MMOL/L (3.5-5.1) 5.0 MMOL/L (3.5-5.1) Chloride Level 95 MMOL/L (98-107) L 96 MMOL/L (98-107) L Carbon Dioxide Level 11 MMOL/L (21-32) L 12 MMOL/L (21-32) L Anion Gap 26 mmol/L (5-15) H 21 mmol/L (5-15) H Blood Urea Nitrogen 11 mg/dL (7-18) 5 mg/dL (7-18) L Creatinine 1.1 MG/DL (0.55-1.30) 1.0 MG/DL (0.55-1.30) Estimat Glomerular Filtration Rate 55.0 mL/min (>60) > 60 mL/min (>60) Glucose Level 98 MG/DL (74-106) 155 MG/DL (74-106) H Lactic Acid Level 3.30 mmol/L (0.66-2.22) H 3.50 mmol/L (0.66-2.22) H Calcium Level 9.5 MG/DL (8.5-10.1) 9.0 MG/DL (8.5-10.1) Total Bilirubin 1.2 MG/DL (0.2-1.0) H 1.6 MG/DL (0.2-1.0) H Direct Bilirubin 0.5 MG/DL (0.0-0.3) H 0.7 MG/DL (0.0-0.3) H Aspartate Amino Transf (AST/SGOT) 301 U/L (15-37) H 204 U/L (15-37) H Alanine Aminotransferase (ALT/SGPT) 187 U/L (12-78) H 141 U/L (12-78) H Alkaline Phosphatase 204 U/L (46-116) H 161 U/L (46-116) H Total Protein 9.8 G/DL (6.4-8.2) H 8.5 G/DL (6.4-8.2) H Albumin 4.8 G/DL (3.4-5.0) 4.1 G/DL (3.4-5.0) Globulin 5.0 g/dL 4.4 g/dL Albumin/Globulin Ratio 1.0 (1.0-2.7) 0.9 (1.0-2.7) L Lipase 8538 U/L (73-393) H 5272 U/L (73-393) H Human Chorionic Gonadotropin, Quant 1 mIU/mL (1-6) Urine Color Yellow Urine Appearance Clear Urine pH 5 (4.5-8.0) Urine Specific [place] 1.025 (1.005-1.035) Urine Protein 3+ (NEGATIVE) H Urine Glucose (UA) Negative (NEGATIVE) Urine Ketones 4+ (NEGATIVE) H Urine Occult Blood 2+ (NEGATIVE) H Urine Nitrite Negative (NEGATIVE) Urine Bilirubin Negative (NEGATIVE) Urine Urobilinogen Normal MG/DL (0.0-1.0) Urine Leukocyte Esterase Negative (NEGATIVE) Urine RBC 2-4 /HPF (0 - 2) H Urine WBC 0-2 /HPF (0 - 2) Urine Squamous Epithelial Cells Few /LPF (NONE/OCC) Urine Bacteria Few /HPF (NONE) Anisocytosis Test 01/22/18 11:00 Urine Opiates Screen Positive (NEGATIVE) H Urine Barbiturates Screen Negative (NEGATIVE) Phencyclidine (PCP) Screen Negative (NEGATIVE) Urine Amphetamines Screen Negative (NEGATIVE) Urine Benzodiazepines Screen Negative (NEGATIVE) Urine Cocaine Screen Negative (NEGATIVE) Urine Marijuana (THC) Screen Negative (NEGATIVE) Height (Feet): 5 Height (Inches): 2.00 Weight (Pounds): 108 Medications Current Medications Medications (Trade) Dose Ordered Sig/Huma Route PRN Reason Start Time Stop Time Status Last Admin Dose Admin Acetaminophen (Tylenol) 650 mg Q4H PRN ORAL Mild Pain (Pain Scale 1-3) 01/21/18 19:00 02/20/18 18:59 Dextrose (Dextrose 50%) STAT PRN IV Hypoglycemia 01/21/18 19:00 02/20/18 18:59 Docusate Sodium (Colace) 100 mg EVERY 12 HOURS ORAL 01/21/18 21:00 02/20/18 20:59 01/22/18 09:36 Enoxaparin Sodium (Lovenox) 30 mg DAILY SUBQ 01/22/18 13:00 02/21/18 12:59 Lorazepam (Ativan) 1 mg Q4H PRN ORAL For Anxiety 01/21/18 19:00 01/28/18 18:59 Morphine Sulfate (Morphine Sulfate) 2 mg Q4H PRN IVP severe pain 01/22/18 09:15 01/28/18 21:14 01/22/18 09:37 Nitroglycerin (Ntg) 0.4 mg Q5M X 3 DOSES PRN SL Prn Chest Pain 01/21/18 19:00 02/20/18 18:59 Ondansetron HCl (Zofran) 4 mg Q4HR PRN IVP Nausea & Vomiting 01/21/18 21:15 02/20/18 21:14 01/22/18 10:42 Pantoprazole (Protonix) 40 mg DAILY IVP 01/22/18 09:00 02/21/18 08:59 01/22/18 09:36 Sodium Chloride 1,000 ml @ 125 mls/hr Q8H IVLG 01/21/18 19:54 02/20/18 19:53 01/22/18 11:17 Zolpidem Tartrate (Ambien) 5 mg HSPRN PRN ORAL Insomnia 01/21/18 19:00 01/28/18 18:59 Assessment/Plan Problem List: (1) Acute gallstone pancreatitis Assessment & Plan: 42F with likely acute gallstone pancreatitis. Does have social EtOH history but no heavy history. Afebrile, HD stable, labs reviewed. no leukocytosis. LFTs elevated and trending down. T bili elevated. Lipase trending down but still elevated. -NPO -IV fluids -MRCP -trend labs -will await pain to resolve and pancreatitis to improve. then can consider diet. -if hospital course uneventful will recommend lap allison during this admission. ICD Codes: K85.10 - Biliary acute pancreatitis without necrosis or infection SNOMED: [id number] Status: stable Miguel Valdovinos Jan 22, 2018 12:10
--- NOTE | 2018-01-22 12:35 | GI Initial Consult Note ---
History of Present Illness General Date patient seen: Jan 22, 2018 Time patient seen: 12:28 Reason for Hospitalization: Abdominal Pain Referring physician: Adriel Reason for Consultation: gallstone pancreatitis Present Illness HPI 42year-old female presents with 2 days of nausea and vomiting and epigastric abdominal pain radiating to back and also RUQ. No associated diarrhea, previous abdominopelvic surgery or sick contacts. Patient got the flu vaccine this year. Has not been ill to keep anything down. Denies urinary complaints. States she had pancreatitis "years ago," unknown etiology. No history of heavy ETOH abuse or elevated cholesterol. GI consulted for gallstone pancreatitis. Pt seen, awake A&Ox4 NAD with no active s/sx of N/V/D. Patient reported severe abdominal pain x 2 days with non bilious emesis. Expressed more relief today. Denies any medical history. Denies any heavy/chronic ETOH/IVDA/ or tobacco use. She presents today with elevated lipase over 8000, abnormal normal LFTs with rising T bili and gallstones as noted on abdominal US. Utox unremarkable. No known history of endoscopy / colonoscopy. Home Meds No Active Prescriptions or Reported Meds Med list reviewed/reconciled: No Allergies: Coded Allergies: PEANUT (Unverified Allergy, Unknown, 07/26/14) SESAME OIL (Unverified Allergy, Unknown, 12/26/16) Patient History History Provided By: Patient, Medical Record PMH Narrative Past Medical History: none Past Surgical History: none Pertinent Family History: none Last Menstrual Period: 01/19/2018 Now: No Immunizations: UTD Reviewed Nursing Documentation: PMH: Agreed, PSxH: Agreed Nursing Documentation-PMH Past Medical History: No History, Except For Social History: Denies: smoking, alcohol use, drug use, other Review of Systems All Other Systems: negative except mentioned in HPI Physical Exam Vital Signs Date Time Temp Pulse Resp B/P (MAP) Pulse Ox O2 Delivery O2 Flow Rate FiO2 01/21/18 13:56 97.4 105 18 109/76 98 Room Air 97.3 Sp02 EP Interpretation: reviewed, normal Labs Laboratory Tests Test 01/21/18 14:45 01/21/18 16:50 01/21/18 18:00 01/22/18 07:05 White Blood Count 5.1 K/UL (4.8-10.8) 7.1 K/UL (4.8-10.8) Red Blood Count 4.19 M/UL (4.20-5.40) L 3.70 M/UL (4.20-5.40) L Hemoglobin 14.5 G/DL (12.0-16.0) 13.0 G/DL (12.0-16.0) Hematocrit 44.3 % (37.0-47.0) 38.7 % (37.0-47.0) Mean Corpuscular Volume 106 FL (80-99) H 105 FL (80-99) H Mean Corpuscular Hemoglobin 34.7 PG (27.0-31.0) H 35.2 PG (27.0-31.0) H Mean Corpuscular Hemoglobin Concent 32.8 G/DL (32.0-36.0) 33.7 G/DL (32.0-36.0) Red Cell Distribution Width 13.4 % (11.6-14.8) 13.5 % (11.6-14.8) Platelet Count 90 K/UL (150-450) L 66 K/UL (150-450) L Mean Platelet Volume 6.4 FL (6.5-10.1) L 9.7 FL (6.5-10.1) Neutrophils (%) (Auto) % (45.0-75.0) % (45.0-75.0) Lymphocytes (%) (Auto) % (20.0-45.0) % (20.0-45.0) Monocytes (%) (Auto) % (1.0-10.0) % (1.0-10.0) Eosinophils (%) (Auto) % (0.0-3.0) % (0.0-3.0) Basophils (%) (Auto) % (0.0-2.0) % (0.0-2.0) Differential Total Cells Counted 100 100 Neutrophils % (Manual) 84 % (45-75) H 94 % (45-75) H Lymphocytes % (Manual) 7 % (20-45) L 5 % (20-45) L Monocytes % (Manual) 7 % (1-10) 1 % (1-10) Eosinophils % (Manual) 0 % (0-3) 0 % (0-3) Basophils % (Manual) 0 % (0-2) 0 % (0-2) Band Neutrophils 2 % (0-8) 0 % (0-8) Platelet Estimate Decreased L Decreased L Platelet Morphology Normal Normal Polychromasia 1+ Macrocytosis 1+ 1+ Sodium Level 132 MMOL/L (136-145) L 129 MMOL/L (136-145) L Potassium Level 4.9 MMOL/L (3.5-5.1) 5.0 MMOL/L (3.5-5.1) Chloride Level 95 MMOL/L (98-107) L 96 MMOL/L (98-107) L Carbon Dioxide Level 11 MMOL/L (21-32) L 12 MMOL/L (21-32) L Anion Gap 26 mmol/L (5-15) H 21 mmol/L (5-15) H Blood Urea Nitrogen 11 mg/dL (7-18) 5 mg/dL (7-18) L Creatinine 1.1 MG/DL (0.55-1.30) 1.0 MG/DL (0.55-1.30) Estimat Glomerular Filtration Rate 55.0 mL/min (>60) > 60 mL/min (>60) Glucose Level 98 MG/DL (74-106) 155 MG/DL (74-106) H Lactic Acid Level 3.30 mmol/L (0.66-2.22) H 3.50 mmol/L (0.66-2.22) H Calcium Level 9.5 MG/DL (8.5-10.1) 9.0 MG/DL (8.5-10.1) Total Bilirubin 1.2 MG/DL (0.2-1.0) H 1.6 MG/DL (0.2-1.0) H Direct Bilirubin 0.5 MG/DL (0.0-0.3) H 0.7 MG/DL (0.0-0.3) H Aspartate Amino Transf (AST/SGOT) 301 U/L (15-37) H 204 U/L (15-37) H Alanine Aminotransferase (ALT/SGPT) 187 U/L (12-78) H 141 U/L (12-78) H Alkaline Phosphatase 204 U/L (46-116) H 161 U/L (46-116) H Total Protein 9.8 G/DL (6.4-8.2) H 8.5 G/DL (6.4-8.2) H Albumin 4.8 G/DL (3.4-5.0) 4.1 G/DL (3.4-5.0) Globulin 5.0 g/dL 4.4 g/dL Albumin/Globulin Ratio 1.0 (1.0-2.7) 0.9 (1.0-2.7) L Lipase 8538 U/L (73-393) H 5272 U/L (73-393) H Human Chorionic Gonadotropin, Quant 1 mIU/mL (1-6) Urine Color Yellow Urine Appearance Clear Urine pH 5 (4.5-8.0) Urine Specific [place] 1.025 (1.005-1.035) Urine Protein 3+ (NEGATIVE) H Urine Glucose (UA) Negative (NEGATIVE) Urine Ketones 4+ (NEGATIVE) H Urine Occult Blood 2+ (NEGATIVE) H Urine Nitrite Negative (NEGATIVE) Urine Bilirubin Negative (NEGATIVE) Urine Urobilinogen Normal MG/DL (0.0-1.0) Urine Leukocyte Esterase Negative (NEGATIVE) Urine RBC 2-4 /HPF (0 - 2) H Urine WBC 0-2 /HPF (0 - 2) Urine Squamous Epithelial Cells Few /LPF (NONE/OCC) Urine Bacteria Few /HPF (NONE) Anisocytosis Test 01/22/18 11:00 Urine Opiates Screen Positive (NEGATIVE) H Urine Barbiturates Screen Negative (NEGATIVE) Phencyclidine (PCP) Screen Negative (NEGATIVE) Urine Amphetamines Screen Negative (NEGATIVE) Urine Benzodiazepines Screen Negative (NEGATIVE) Urine Cocaine Screen Negative (NEGATIVE) Urine Marijuana (THC) Screen Negative (NEGATIVE) General Appearance: well appearing, no apparent distress, alert Head: normocephalic EENT: PERRL/EOMI, normal ENT inspection Neck: supple Respiratory: normal breath sounds, no respiratory distress Cardiovascular: normal rate Gastrointestinal: normal inspection, non tender, soft, normal bowel sounds, non -distended Rectal: deferred Genitourinary: no CVA tenderness Musculoskeletal: normal inspection, back normal Neurologic: normal inspection, alert, oriented x3, responsive Psychiatric: normal inspection, judgement/insight normal, memory normal Skin: normal inspection, normal color, no rash, warm/dry, palpation normal, well hydrated Lymphatic: normal inspection, no adenopathy Current Medications Current Medications Medications (Trade) Dose Ordered Sig/Huma Route PRN Reason Start Time Stop Time Status Last Admin Dose Admin Acetaminophen (Tylenol) 650 mg Q4H PRN ORAL Mild Pain (Pain Scale 1-3) 01/21/18 19:00 02/20/18 18:59 Dextrose (Dextrose 50%) STAT PRN IV Hypoglycemia 01/21/18 19:00 02/20/18 18:59 Docusate Sodium (Colace) 100 mg EVERY 12 HOURS ORAL 01/21/18 21:00 02/20/18 20:59 01/22/18 09:36 Enoxaparin Sodium (Lovenox) 30 mg DAILY SUBQ 01/22/18 13:00 02/21/18 12:59 Lorazepam (Ativan) 1 mg Q4H PRN ORAL For Anxiety 01/21/18 19:00 01/28/18 18:59 Morphine Sulfate (Morphine Sulfate) 2 mg Q4H PRN IVP severe pain 01/22/18 09:15 01/28/18 21:14 01/22/18 09:37 Nitroglycerin (Ntg) 0.4 mg Q5M X 3 DOSES PRN SL Prn Chest Pain 01/21/18 19:00 02/20/18 18:59 Ondansetron HCl (Zofran) 4 mg Q4HR PRN IVP Nausea & Vomiting 01/21/18 21:15 02/20/18 21:14 01/22/18 10:42 Pantoprazole (Protonix) 40 mg DAILY IVP 01/22/18 09:00 02/21/18 08:59 01/22/18 09:36 Sodium Chloride 1,000 ml @ 125 mls/hr Q8H IVLG 01/21/18 19:54 02/20/18 19:53 01/22/18 11:17 Zolpidem Tartrate (Ambien) 5 mg HSPRN PRN ORAL Insomnia 01/21/18 19:00 01/28/18 18:59 GI: Plan Problems: (1) Acute pancreatitis (2) Transaminitis (3) Acute gallstone pancreatitis (4) Abdominal pain (5) Malnutrition (6) High triglycerides Plan abdominal U/S reviewed >> Gallbladder sludge possible tiny stones. MRCP ordered. bowel rest, NPO + IVFs adv diet as tolerated pain mgmt fu labs, lipase Discussed with Dr. Holt. Thank you for this patient referral, we will follow. Yaritza Marroquin N.P. Jan 22, 2018 12:35
[2018-01-22] MEDS: Enoxaparin 30mg Inj SUBQ SCH (13:00)
--- NOTE | 2018-01-22 13:16 | History & Physical ---
History and Physical History & Physicial [id number] Job ID Mick Fontana Jan 22, 2018 13:16
[2018-01-22 20:00] VITALS: BP 118/80
[2018-01-23 00:34] VITALS: BP 120/75
[2018-01-23] MEDS: Morphine Sulfate 2mg/ml Inj IVP PRN ×4 (03:54→19:55)
[2018-01-23 04:03] VITALS: BP 117/85
[2018-01-23 08:00] VITALS: BP 131/81
[2018-01-23 08:24] LABS: HEMATOCRIT 38.4 % (37.0-47.0); HEMOGLOBIN 13.2 G/DL (12.0-16.0); MEAN CORPUSCULAR VOLUME 102 FL (80-99); PLATELET COUNT 52 K/UL (150-450); RED BLOOD COUNT 3.78 M/UL (4.20-5.40); RED CELL DISTRIBUTION WIDTH 12.8 % (11.6-14.8); WHITE BLOOD COUNT 8.2 K/UL (4.8-10.8)
[2018-01-23] MEDS: Pantoprazole Inj IVP SCH (08:45)
[2018-01-23] MEDS: Docusate 100mg cap ORAL SCH ×2 (08:45→21:00)
[2018-01-23] MEDS: Enoxaparin 30mg Inj SUBQ SCH (08:48)
[2018-01-23 09:02] LABS: ALANINE AMINOTRANSFERASE 110 U/L (12-78); ALBUMIN 3.3 G/DL (3.4-5.0); ALBUMIN/GLOBULIN RATIO 0.8 (1.0-2.7); ALKALINE PHOSPHATASE 142 U/L (46-116); ANION GAP 19 mmol/L (5-15); ASPARTATE AMINO TRANSFERASE 138 U/L (15-37); BILIRUBIN,TOTAL 1.4 MG/DL (0.2-1.0); BLOOD UREA NITROGEN 4 mg/dL (7-18); CALCIUM 9.4 MG/DL (8.5-10.1); CARBON DIOXIDE 16 MMOL/L (21-32); CHLORIDE 97 MMOL/L (98-107); CHOLESTEROL 203 MG/DL (< 200); CREATININE 0.9 MG/DL (0.55-1.30); HDL CHOLESTEROL 87 MG/DL (40-60); POTASSIUM 3.2 MMOL/L (3.5-5.1); SODIUM 132 MMOL/L (136-145); TRIGLYCERIDES 57 MG/DL (30-150)
[2018-01-23 09:04] LABS: BILIRUBIN,DIRECT 0.6 MG/DL (0.0-0.3)
--- NOTE | 2018-01-23 09:14 | Diagnostic Imaging Report ---
Indication: Abdominal pain Technique: MRI of the abdomen without contrast. Axial and coronal sequences obtained. Comparison: Ultrasound of the abdomen 01/21/2018 Findings: There is no obvious biliary dilatation or MR evident common bile duct calculi. Gallbladder sludge is noted with small stones not excluded. There is diffuse fatty infiltration of the liver. The adrenal glands and spleen are grossly unremarkable. There is enlargement of the pancreatic body and tail with peripancreatic fluid extending to the left anterior pararenal space. Bilateral perinephric fluid is also seen. No obvious focal pancreatic pseudocyst is identified at this time. Impression: No obvious biliary dilatation or MR evident common bile duct calculi. Further evaluation recommended as indicated. Enlargement of the pancreatic body and tail with peripancreatic stranding extending to the left anterior pararenal space consistent with pancreatitis. Clinical correlation recommended. Diffuse fatty infiltration of the liver. Other findings as above.
[2018-01-23 12:00] VITALS: BP 120/82
--- NOTE | 2018-01-23 13:08 | General Surgery Progress Note ---
General Surgery-Progress Note Subjective Symptoms: improved Additional Comments states pain is improving but still mild pain persists. no n/v/f/c. Objective Last 24 Hour Vital Signs Date Time Temp Pulse Resp B/P (MAP) Pulse Ox O2 Delivery O2 Flow Rate FiO2 01/23/18 12:00 98.7 72 18 120/82 100 Room Air 98.7 01/23/18 08:00 99.2 84 18 131/81 100 Room Air 99.2 01/23/18 04:03 98.4 95 18 117/85 100 Room Air 98.4 01/23/18 00:34 98.6 94 18 120/75 100 Room Air 98.6 01/22/18 20:00 98.4 84 18 118/80 100 Room Air 98.4 I&O Intake and Output 01/22/18 01/23/18 19:00 07:00 Intake Total 875 ml 1375 ml Balance 875 ml 1375 ml Intake IV Total 875 ml 1375 ml # Voids 3 3 Drains: none Cardiovascular: RSR Respiratory: clear Abdomen: soft, flat, non-tender, present bowel sounds Extremities: no tenderness, no cyanosis Laboratory Tests Test 01/23/18 06:18 White Blood Count 8.2 K/UL (4.8-10.8) Red Blood Count 3.78 M/UL (4.20-5.40) L Hemoglobin 13.2 G/DL (12.0-16.0) Hematocrit 38.4 % (37.0-47.0) Mean Corpuscular Volume 102 FL (80-99) H Mean Corpuscular Hemoglobin 34.9 PG (27.0-31.0) H Mean Corpuscular Hemoglobin Concent 34.3 G/DL (32.0-36.0) Red Cell Distribution Width 12.8 % (11.6-14.8) Platelet Count 52 K/UL (150-450) L Mean Platelet Volume 7.1 FL (6.5-10.1) Neutrophils (%) (Auto) % (45.0-75.0) Lymphocytes (%) (Auto) % (20.0-45.0) Monocytes (%) (Auto) % (1.0-10.0) Eosinophils (%) (Auto) % (0.0-3.0) Basophils (%) (Auto) % (0.0-2.0) Differential Total Cells Counted 100 Neutrophils % (Manual) 89 % (45-75) H Lymphocytes % (Manual) 5 % (20-45) L Monocytes % (Manual) 6 % (1-10) Eosinophils % (Manual) 0 % (0-3) Basophils % (Manual) 0 % (0-2) Band Neutrophils 0 % (0-8) Platelet Estimate Decreased L Platelet Morphology Normal Macrocytosis 1+ Sodium Level 132 MMOL/L (136-145) L Potassium Level 3.2 MMOL/L (3.5-5.1) L Chloride Level 97 MMOL/L (98-107) L Carbon Dioxide Level 16 MMOL/L (21-32) L Anion Gap 19 mmol/L (5-15) H Blood Urea Nitrogen 4 mg/dL (7-18) L Creatinine 0.9 MG/DL (0.55-1.30) Estimat Glomerular Filtration Rate > 60 mL/min (>60) Glucose Level 98 MG/DL (74-106) Calcium Level 9.4 MG/DL (8.5-10.1) Total Bilirubin 1.4 MG/DL (0.2-1.0) H Direct Bilirubin 0.6 MG/DL (0.0-0.3) H Aspartate Amino Transf (AST/SGOT) 138 U/L (15-37) H Alanine Aminotransferase (ALT/SGPT) 110 U/L (12-78) H Alkaline Phosphatase 142 U/L (46-116) H Total Protein 7.6 G/DL (6.4-8.2) Albumin 3.3 G/DL (3.4-5.0) L Globulin 4.3 g/dL Albumin/Globulin Ratio 0.8 (1.0-2.7) L Triglycerides Level 57 MG/DL (30-150) Cholesterol Level 203 MG/DL (< 200) H LDL Cholesterol 89 mg/dL (<100) HDL Cholesterol 87 MG/DL (40-60) H Cholesterol/HDL Ratio 2.3 (3.3-4.4) L Lipase 1442 U/L (73-393) H Plan Problems: (1) Acute gallstone pancreatitis Assessment & Plan: 42F with likely acute gallstone pancreatitis. Does have social EtOH history but no heavy history. Afebrile, HD stable, labs reviewed. no leukocytosis. LFTs elevated and trending down. T bili elevated but trending down. Lipase trending down. MRCP without choledocholithiasis. -NPO -IV fluids -trend labs -will await pain to resolve and pancreatitis to improve. then can consider diet. -if hospital course uneventful will recommend lap allison during this admission. patient states she is unsure if she will want to have lap allison during this admission or not. states she has a lot of things planned and may want to do it electively. discussed all risks, benefits, and alternatives for cholecystectomy during this admission vs elective. Miguel Valdovinos Jan 23, 2018 13:08
[2018-01-23] MEDS: NS w/KCl 40mEq 1,000 ML IV SCH (15:25)
[2018-01-23 16:00] VITALS: BP 126/69
--- NOTE | 2018-01-23 18:40 | General Progress Note ---
Assessment/Plan Assessment/Plan Assessment - pancreatitis Recommendations - NPO - IVF - Pain control - Follow labs Subjective Allergies: Coded Allergies: PEANUT (Unverified Allergy, Unknown, 07/26/14) SESAME OIL (Unverified Allergy, Unknown, 12/26/16) Subjective feels better less pain Objective Last 24 Hour Vital Signs Date Time Temp Pulse Resp B/P (MAP) Pulse Ox O2 Delivery O2 Flow Rate FiO2 01/23/18 16:00 98.5 83 18 126/69 100 Room Air 98.5 01/23/18 12:00 98.7 72 18 120/82 100 Room Air 98.7 01/23/18 08:00 99.2 84 18 131/81 100 Room Air 99.2 01/23/18 04:03 98.4 95 18 117/85 100 Room Air 98.4 01/23/18 00:34 98.6 94 18 120/75 100 Room Air 98.6 01/22/18 20:00 98.4 84 18 118/80 100 Room Air 98.4 Intake and Output 01/22/18 01/23/18 19:00 07:00 Intake Total 875 ml 1375 ml Balance 875 ml 1375 ml Intake IV Total 875 ml 1375 ml # Voids 3 3 Laboratory Tests 01/23/18 06:18: White Blood Count 8.2, Red Blood Count 3.78L, Hemoglobin 13.2, Hematocrit 38.4, Mean Corpuscular Volume 102H, Mean Corpuscular Hemoglobin 34.9H, Mean Corpuscular Hemoglobin Concent 34.3, Red Cell Distribution Width 12.8, Platelet Count 52L, Mean Platelet Volume 7.1, Neutrophils (%) (Auto) , Lymphocytes (%) ( Auto) , Monocytes (%) (Auto) , Eosinophils (%) (Auto) , Basophils (%) (Auto) , Differential Total Cells Counted 100, Neutrophils % (Manual) 89H, Lymphocytes % (Manual) 5L, Monocytes % (Manual) 6, Eosinophils % (Manual) 0, Basophils % ( Manual) 0, Band Neutrophils 0, Platelet Estimate DecreasedL, Platelet Morphology Normal, Macrocytosis 1+, Sodium Level 132L, Potassium Level 3.2L, Chloride Level 97L, Carbon Dioxide Level 16L, Anion Gap 19H, Blood Urea Nitrogen 4L, Creatinine 0.9, Estimat Glomerular Filtration Rate > 60, Glucose Level 98, Calcium Level 9.4, Total Bilirubin 1.4H, Direct Bilirubin 0.6H, Aspartate Amino Transf (AST/SGOT) 138H, Alanine Aminotransferase (ALT/SGPT) 110H , Alkaline Phosphatase 142H, Total Protein 7.6, Albumin 3.3L, Globulin 4.3, Albumin/Globulin Ratio 0.8L, Triglycerides Level 57, Cholesterol Level 203H, LDL Cholesterol 89, HDL Cholesterol 87H, Cholesterol/HDL Ratio 2.3L, Lipase 1442H Height (Feet): 5 Height (Inches): 2.00 Weight (Pounds): 108 Objective Thin WW NCAT supple CTA RRR soft ND no edema EDY LAUGHLIN Jan 23, 2018 18:40
[2018-01-23 20:13] VITALS: BP 119/84
[2018-01-24] VITALS: BP 115/70
[2018-01-24] MEDS: Zolpidem 5mg tab ORAL PRN (03:14)
[2018-01-24] MEDS: NS w/KCl 40mEq 1,000 ML IV SCH (04:24)
[2018-01-24 04:32] VITALS: BP 112/76
[2018-01-24 08:00] VITALS: BP 110/78
[2018-01-24 08:22] LABS: HEMATOCRIT 35.5 % (37.0-47.0); HEMOGLOBIN 12.3 G/DL (12.0-16.0); MEAN CORPUSCULAR VOLUME 100 FL (80-99); PLATELET COUNT 46 K/UL (150-450); RED BLOOD COUNT 3.55 M/UL (4.20-5.40); RED CELL DISTRIBUTION WIDTH 12.7 % (11.6-14.8); WHITE BLOOD COUNT 5.8 K/UL (4.8-10.8)
[2018-01-24] MEDS: Enoxaparin 30mg Inj SUBQ SCH (09:00)
[2018-01-24 09:06] LABS: ALANINE AMINOTRANSFERASE 95 U/L (12-78); ALBUMIN 3.1 G/DL (3.4-5.0); ALBUMIN/GLOBULIN RATIO 0.7 (1.0-2.7); ALKALINE PHOSPHATASE 136 U/L (46-116); ANION GAP 13 mmol/L (5-15); ASPARTATE AMINO TRANSFERASE 126 U/L (15-37); BILIRUBIN,TOTAL 1.3 MG/DL (0.2-1.0); BLOOD UREA NITROGEN 4 mg/dL (7-18); CALCIUM 9.1 MG/DL (8.5-10.1); CARBON DIOXIDE 21 MMOL/L (21-32); CHLORIDE 99 MMOL/L (98-107); CREATININE 0.7 MG/DL (0.55-1.30); POTASSIUM 3.6 MMOL/L (3.5-5.1); SODIUM 133 MMOL/L (136-145)
[2018-01-24 09:10] LABS: BILIRUBIN,DIRECT 0.3 MG/DL (0.0-0.3)
[2018-01-24] MEDS: Pantoprazole Inj IVP SCH (09:46)
[2018-01-24] MEDS: Docusate 100mg cap ORAL SCH ×2 (09:46→20:56)
[2018-01-24] MEDS: Morphine Sulfate 2mg/ml Inj IVP PRN ×3 (09:47→22:40)
[2018-01-24 12:00] VITALS: BP 118/78
--- NOTE | 2018-01-24 12:47 | General Progress Note ---
Assessment/Plan Assessment/Plan (1) Intractable abdominal pain (2) Acute pancreatitis Patient will be continued on Morphine and Ambien. D/w Dr. Fragoso and he concurred. Subjective Date patient seen: Jan 24, 2018 Time patient seen: 11:15 - am Constitutional: Reports: no symptoms HEENT: Reports: no symptoms Cardiovascular: Reports: no symptoms Respiratory: Reports: no symptoms Gastrointestinal/Abdominal: Reports: abdominal pain Genitourinary: Reports: no symptoms Neurologic/Psychiatric: Reports: no symptoms Endocrine: Reports: no symptoms Hematologic/Lymphatic: Reports: no symptoms Allergies: Coded Allergies: PEANUT (Unverified Allergy, Unknown, 07/26/14) SESAME OIL (Unverified Allergy, Unknown, 12/26/16) Subjective Patient is in bed and is comfortable pain is at a moderate level and reduced on the Morphine. She has no new complaints. Objective Last 24 Hour Vital Signs Date Time Temp Pulse Resp B/P (MAP) Pulse Ox O2 Delivery O2 Flow Rate FiO2 01/24/18 08:00 97.7 76 18 110/78 99 97.7 01/24/18 04:32 96.3 78 18 112/76 99 96.3 01/24/18 00:00 98.9 71 18 115/70 97 98.9 01/23/18 20:25 98.1 01/23/18 20:13 98.1 82 17 119/84 99 98.1 01/23/18 19:55 98.5 01/23/18 16:00 98.5 83 18 126/69 100 Room Air 98.5 Intake and Output 01/23/18 01/24/18 19:00 07:00 Intake Total 2825 ml 1830 ml Balance 2825 ml 1830 ml Intake Oral 480 ml IV Total 2825 ml 1350 ml # Voids 3 2 Laboratory Tests 01/24/18 06:28: White Blood Count 5.8, Red Blood Count 3.55L, Hemoglobin 12.3, Hematocrit 35.5L , Mean Corpuscular Volume 100H, Mean Corpuscular Hemoglobin 34.7H, Mean Corpuscular Hemoglobin Concent 34.6, Red Cell Distribution Width 12.7, Platelet Count 46L, Mean Platelet Volume 8.4, Neutrophils (%) (Auto) , Lymphocytes (%) ( Auto) , Monocytes (%) (Auto) , Eosinophils (%) (Auto) , Basophils (%) (Auto) , Neutrophils % (Manual) [Pending], Lymphocytes % (Manual) [Pending], Platelet Estimate [Pending], Platelet Morphology [Pending], Sodium Level 133L, Potassium Level 3.6, Chloride Level 99, Carbon Dioxide Level 21, Anion Gap 13, Blood Urea Nitrogen 4L, Creatinine 0.7, Estimat Glomerular Filtration Rate > 60, Glucose Level 79, Calcium Level 9.1, Total Bilirubin 1.3H, Direct Bilirubin 0.3, Aspartate Amino Transf (AST/SGOT) 126H, Alanine Aminotransferase (ALT/SGPT) 95H , Alkaline Phosphatase 136H, Total Protein 7.3, Albumin 3.1L, Globulin 4.2, Albumin/Globulin Ratio 0.7L, Lipase 720H Height (Feet): 5 Height (Inches): 2.00 Weight (Pounds): 108 General Appearance: no apparent distress, alert EENT: PERRL/EOMI, normal ENT inspection Neck: non-tender, normal alignment Cardiovascular: normal rate, regular rhythm Respiratory/Chest: lungs clear, normal breath sounds Abdomen: tender Extremities: normal range of motion, non-tender Edema: no edema noted Arm (L), no edema noted Arm (R), no edema noted Leg (L), no edema noted Leg (R), no edema noted Pedal (L), no edema noted Pedal (R), no edema noted Generalized Neurologic: alert, oriented x 3 Skin: warm/dry EDGAR SUAREZ Jan 24, 2018 12:47
--- NOTE | 2018-01-24 13:22 | General Surgery Progress Note ---
General Surgery-Progress Note Subjective Symptoms: improved Additional Comments minimal discomfort. no n/v/f/c. hungry. states she feels great Objective Last 24 Hour Vital Signs Date Time Temp Pulse Resp B/P (MAP) Pulse Ox O2 Delivery O2 Flow Rate FiO2 01/24/18 08:00 97.7 76 18 110/78 99 97.7 01/24/18 04:32 96.3 78 18 112/76 99 96.3 01/24/18 00:00 98.9 71 18 115/70 97 98.9 01/23/18 20:25 98.1 01/23/18 20:13 98.1 82 17 119/84 99 98.1 01/23/18 19:55 98.5 01/23/18 16:00 98.5 83 18 126/69 100 Room Air 98.5 I&O Intake and Output 01/23/18 01/24/18 19:00 07:00 Intake Total 2825 ml 1830 ml Balance 2825 ml 1830 ml Intake Oral 480 ml IV Total 2825 ml 1350 ml # Voids 3 2 Drains: none Cardiovascular: RSR Respiratory: clear Abdomen: soft, flat, non-tender, present bowel sounds Extremities: no edema, no tenderness Laboratory Tests Test 01/24/18 06:28 White Blood Count 5.8 K/UL (4.8-10.8) Red Blood Count 3.55 M/UL (4.20-5.40) L Hemoglobin 12.3 G/DL (12.0-16.0) Hematocrit 35.5 % (37.0-47.0) L Mean Corpuscular Volume 100 FL (80-99) H Mean Corpuscular Hemoglobin 34.7 PG (27.0-31.0) H Mean Corpuscular Hemoglobin Concent 34.6 G/DL (32.0-36.0) Red Cell Distribution Width 12.7 % (11.6-14.8) Platelet Count 46 K/UL (150-450) L Mean Platelet Volume 8.4 FL (6.5-10.1) Neutrophils (%) (Auto) % (45.0-75.0) Lymphocytes (%) (Auto) % (20.0-45.0) Monocytes (%) (Auto) % (1.0-10.0) Eosinophils (%) (Auto) % (0.0-3.0) Basophils (%) (Auto) % (0.0-2.0) Neutrophils % (Manual) Pending Lymphocytes % (Manual) Pending Platelet Estimate Pending Platelet Morphology Pending Sodium Level 133 MMOL/L (136-145) L Potassium Level 3.6 MMOL/L (3.5-5.1) Chloride Level 99 MMOL/L (98-107) Carbon Dioxide Level 21 MMOL/L (21-32) Anion Gap 13 mmol/L (5-15) Blood Urea Nitrogen 4 mg/dL (7-18) L Creatinine 0.7 MG/DL (0.55-1.30) Estimat Glomerular Filtration Rate > 60 mL/min (>60) Glucose Level 79 MG/DL (74-106) Calcium Level 9.1 MG/DL (8.5-10.1) Total Bilirubin 1.3 MG/DL (0.2-1.0) H Direct Bilirubin 0.3 MG/DL (0.0-0.3) Aspartate Amino Transf (AST/SGOT) 126 U/L (15-37) H Alanine Aminotransferase (ALT/SGPT) 95 U/L (12-78) H Alkaline Phosphatase 136 U/L (46-116) H Total Protein 7.3 G/DL (6.4-8.2) Albumin 3.1 G/DL (3.4-5.0) L Globulin 4.2 g/dL Albumin/Globulin Ratio 0.7 (1.0-2.7) L Lipase 720 U/L (73-393) H Plan Problems: (1) Acute gallstone pancreatitis Assessment & Plan: 42F with likely acute gallstone pancreatitis. Does have social EtOH history but no heavy history. Afebrile, HD stable, labs reviewed. no leukocytosis. LFTs elevated and trending down. T bili elevated but trending down. Lipase trending down. MRCP without choledocholithiasis. -okay for clears. advance as tolerated. -trend labs -if hospital course uneventful will recommend lap allison during this admission. patient states she is unsure if she will want to have lap allison during this admission or not. states she has a lot of things planned and may want to do it electively. discussed all risks, benefits, and alternatives for cholecystectomy during this admission vs elective. Miguel Valdovinos 11, 2018 13:22
--- NOTE | 2018-01-24 15:40 | General Progress Note ---
Assessment/Plan Assessment/Plan Assessment - pancreatitis Recommendations - Begin clears - IVF - Pain control - Follow labs Subjective Allergies: Coded Allergies: PEANUT (Unverified Allergy, Unknown, 07/26/14) SESAME OIL (Unverified Allergy, Unknown, 12/26/16) Subjective feels better less pain Objective Last 24 Hour Vital Signs Date Time Temp Pulse Resp B/P (MAP) Pulse Ox O2 Delivery O2 Flow Rate FiO2 01/24/18 12:00 97.4 79 18 118/78 99 97.4 01/24/18 08:00 97.7 76 18 110/78 99 97.7 01/24/18 04:32 96.3 78 18 112/76 99 96.3 01/24/18 00:00 98.9 71 18 115/70 97 98.9 01/23/18 20:25 98.1 01/23/18 20:13 98.1 82 17 119/84 99 98.1 01/23/18 19:55 98.5 01/23/18 16:00 98.5 83 18 126/69 100 Room Air 98.5 Intake and Output 01/23/18 01/24/18 19:00 07:00 Intake Total 2825 ml 1830 ml Balance 2825 ml 1830 ml Intake Oral 480 ml IV Total 2825 ml 1350 ml # Voids 3 2 Laboratory Tests 01/24/18 06:28: White Blood Count 5.8, Red Blood Count 3.55L, Hemoglobin 12.3, Hematocrit 35.5L , Mean Corpuscular Volume 100H, Mean Corpuscular Hemoglobin 34.7H, Mean Corpuscular Hemoglobin Concent 34.6, Red Cell Distribution Width 12.7, Platelet Count 46L, Mean Platelet Volume 8.4, Neutrophils (%) (Auto) , Lymphocytes (%) ( Auto) , Monocytes (%) (Auto) , Eosinophils (%) (Auto) , Basophils (%) (Auto) , Differential Total Cells Counted 100, Neutrophils % (Manual) 82H, Lymphocytes % (Manual) 10L, Monocytes % (Manual) 8, Eosinophils % (Manual) 0, Basophils % ( Manual) 0, Band Neutrophils 0, Platelet Estimate DecreasedL, Platelet Morphology Normal, Red Blood Cell Morphology Normal, Microcytosis , Sodium Level 133L, Potassium Level 3.6, Chloride Level 99, Carbon Dioxide Level 21, Anion Gap 13, Blood Urea Nitrogen 4L, Creatinine 0.7, Estimat Glomerular Filtration Rate > 60, Glucose Level 79, Calcium Level 9.1, Total Bilirubin 1.3H , Direct Bilirubin 0.3, Aspartate Amino Transf (AST/SGOT) 126H, Alanine Aminotransferase (ALT/SGPT) 95H, Alkaline Phosphatase 136H, Total Protein 7.3, Albumin 3.1L, Globulin 4.2, Albumin/Globulin Ratio 0.7L, Lipase 720H Height (Feet): 5 Height (Inches): 2.00 Weight (Pounds): 108 Objective Thin WW NCAT supple CTA RRR soft ND no edema EDY LAUGHLIN Jan 24, 2018 15:39
[2018-01-24 16:00] VITALS: BP 124/78
--- NOTE | 2018-01-24 16:36 | Cardiology Report ---
APPROVED REPORT EKG Measurement Heart [id number] Normal sinus rhythm Normal ECG
--- NOTE | 2018-01-24 17:47 | History & Physical ---
History and Physical History & Physicial H&P COVERING [facility] DOS: 01/22/18 This is a late H&P the prior one dose not for some reason appear in the record Reason for Hospitalization: Abdominal Pain Reason for Consultation: gallstone pancreatitis HPI 42year-old female presents with 2 days of nausea and vomiting and epigastric abdominal pain radiating to back and also RUQ. No associated diarrhea, previous abdominopelvic surgery or sick contacts. Patient got the flu vaccine this year. Has not been ill to keep anything down. Denies urinary complaints. States she had pancreatitis "years ago," unknown etiology. No history of heavy ETOH abuse or elevated cholesterol. GI consulted for gallstone pancreatitis. Pt seen, awake A&Ox4 NAD with no active s/sx of N/V/D. Patient reported severe abdominal pain x 2 days with non bilious emesis. Expressed more relief today. Denies any medical history. Denies any heavy/chronic ETOH/IVDA/ or tobacco use. She presents today with elevated lipase over 8000, abnormal normal LFTs with rising T bili and gallstones as noted on abdominal US. Utox unremarkable. No known history of endoscopy / colonoscopy. Home Meds No Active Prescriptions or Reported Meds Med list reviewed/reconciled: No Allergies: Coded Allergies: PEANUT (Unverified Allergy, Unknown, 07/26/14) SESAME OIL (Unverified Allergy, Unknown, 12/26/16) Patient History History Provided By: Patient, Medical Record PMH Narrative Past Medical History: none Past Surgical History: none Pertinent Family History: none Last Menstrual Period: 01/19/2018 Now: No Immunizations: UTD Reviewed Nursing Documentation: PMH: Agreed, PSxH: Agreed Nursing Documentation-PMH Past Medical History: No History, Except For Social History: Denies: smoking, alcohol use, drug use, other Review of Systems All Other Systems: negative except mentioned in HPI Physical Exam Vital Signs Date Time Temp Pulse Resp B/P (MAP) Pulse Ox O2 Delivery O2 Flow Rate FiO2 01/21/18 13:56 97.4 105 18 109/76 98 Room Air 97.3 Sp02 EP Interpretation: reviewed, normal Labs Laboratory Tests Test 01/21/18 14:45 01/21/18 16:50 01/21/18 18:00 01/22/18 07:05 White Blood Count 5.1 K/UL (4.8-10.8) 7.1 K/UL (4.8-10.8) Red Blood Count 4.19 M/UL (4.20-5.40) L 3.70 M/UL (4.20-5.40) L Hemoglobin 14.5 G/DL (12.0-16.0) 13.0 G/DL (12.0-16.0) Hematocrit 44.3 % (37.0-47.0) 38.7 % (37.0-47.0) Mean Corpuscular Volume 106 FL (80-99) H 105 FL (80-99) H Mean Corpuscular Hemoglobin 34.7 PG (27.0-31.0) H 35.2 PG (27.0-31.0) H Mean Corpuscular Hemoglobin Concent 32.8 G/DL (32.0-36.0) 33.7 G/DL (32.0-36.0) Red Cell Distribution Width 13.4 % (11.6-14.8) 13.5 % (11.6-14.8) Platelet Count 90 K/UL (150-450) L 66 K/UL (150-450) L Mean Platelet Volume 6.4 FL (6.5-10.1) L 9.7 FL (6.5-10.1) Neutrophils (%) (Auto) % (45.0-75.0) % (45.0-75.0) Lymphocytes (%) (Auto) % (20.0-45.0) % (20.0-45.0) Monocytes (%) (Auto) % (1.0-10.0) % (1.0-10.0) Eosinophils (%) (Auto) % (0.0-3.0) % (0.0-3.0) Basophils (%) (Auto) % (0.0-2.0) % (0.0-2.0) Differential Total Cells Counted 100 100 Neutrophils % (Manual) 84 % (45-75) H 94 % (45-75) H Lymphocytes % (Manual) 7 % (20-45) L 5 % (20-45) L Monocytes % (Manual) 7 % (1-10) 1 % (1-10) Eosinophils % (Manual) 0 % (0-3) 0 % (0-3) Basophils % (Manual) 0 % (0-2) 0 % (0-2) Band Neutrophils 2 % (0-8) 0 % (0-8) Platelet Estimate Decreased L Decreased L Platelet Morphology Normal Normal Polychromasia 1+ Macrocytosis 1+ 1+ Sodium Level 132 MMOL/L (136-145) L 129 MMOL/L (136-145) L Potassium Level 4.9 MMOL/L (3.5-5.1) 5.0 MMOL/L (3.5-5.1) Chloride Level 95 MMOL/L (98-107) L 96 MMOL/L (98-107) L Carbon Dioxide Level 11 MMOL/L (21-32) L 12 MMOL/L (21-32) L Anion Gap 26 mmol/L (5-15) H 21 mmol/L (5-15) H Blood Urea Nitrogen 11 mg/dL (7-18) 5 mg/dL (7-18) L Creatinine 1.1 MG/DL (0.55-1.30) 1.0 MG/DL (0.55-1.30) Estimat Glomerular Filtration Rate 55.0 mL/min (>60) > 60 mL/min (>60) Glucose Level 98 MG/DL (74-106) 155 MG/DL (74-106) H Lactic Acid Level 3.30 mmol/L (0.66-2.22) H 3.50 mmol/L (0.66-2.22) H Calcium Level 9.5 MG/DL (8.5-10.1) 9.0 MG/DL (8.5-10.1) Total Bilirubin 1.2 MG/DL (0.2-1.0) H 1.6 MG/DL (0.2-1.0) H Direct Bilirubin 0.5 MG/DL (0.0-0.3) H 0.7 MG/DL (0.0-0.3) H Aspartate Amino Transf (AST/SGOT) 301 U/L (15-37) H 204 U/L (15-37) H Alanine Aminotransferase (ALT/SGPT) 187 U/L (12-78) H 141 U/L (12-78) H Alkaline Phosphatase 204 U/L (46-116) H 161 U/L (46-116) H Total Protein 9.8 G/DL (6.4-8.2) H 8.5 G/DL (6.4-8.2) H Albumin 4.8 G/DL (3.4-5.0) 4.1 G/DL (3.4-5.0) Globulin 5.0 g/dL 4.4 g/dL Albumin/Globulin Ratio 1.0 (1.0-2.7) 0.9 (1.0-2.7) L Lipase 8538 U/L (73-393) H 5272 U/L (73-393) H Human Chorionic Gonadotropin, Quant 1 mIU/mL (1-6) Urine Color Yellow Urine Appearance Clear Urine pH 5 (4.5-8.0) Urine Specific [place] 1.025 (1.005-1.035) Urine Protein 3+ (NEGATIVE) H Urine Glucose (UA) Negative (NEGATIVE) Urine Ketones 4+ (NEGATIVE) H Urine Occult Blood 2+ (NEGATIVE) H Urine Nitrite Negative (NEGATIVE) Urine Bilirubin Negative (NEGATIVE) Urine Urobilinogen Normal MG/DL (0.0-1.0) Urine Leukocyte Esterase Negative (NEGATIVE) Urine RBC 2-4 /HPF (0 - 2) H Urine WBC 0-2 /HPF (0 - 2) Urine Squamous Epithelial Cells Few /LPF (NONE/OCC) Urine Bacteria Few /HPF (NONE) Anisocytosis Test 01/22/18 11:00 Urine Opiates Screen Positive (NEGATIVE) H Urine Barbiturates Screen Negative (NEGATIVE) Phencyclidine (PCP) Screen Negative (NEGATIVE) Urine Amphetamines Screen Negative (NEGATIVE) Urine Benzodiazepines Screen Negative (NEGATIVE) Urine Cocaine Screen Negative (NEGATIVE) Urine Marijuana (THC) Screen Negative (NEGATIVE) General Appearance: well appearing, no apparent distress, alert Head: normocephalic EENT: PERRL/EOMI, normal ENT inspection Neck: supple Respiratory: normal breath sounds, no respiratory distress Cardiovascular: normal rate Gastrointestinal: normal inspection, non tender, soft, normal bowel sounds, non -distended Rectal: deferred Genitourinary: no CVA tenderness Musculoskeletal: normal inspection, back normal Neurologic: normal inspection, alert, oriented x3, responsive Psychiatric: normal inspection, judgement/insight normal, memory normal Skin: normal inspection, normal color, no rash, warm/dry, palpation normal, well hydrated Lymphatic: normal inspection, no adenopathy Current Medications Current Medications Medications (Trade) Dose Ordered Sig/Huma Route PRN Reason Start Time Stop Time Status Last Admin Dose Admin Acetaminophen (Tylenol) 650 mg Q4H PRN ORAL Mild Pain (Pain Scale 1-3) 01/21/18 19:00 02/20/18 18:59 Dextrose (Dextrose 50%) STAT PRN IV Hypoglycemia 01/21/18 19:00 02/20/18 18:59 Docusate Sodium (Colace) 100 mg EVERY 12 HOURS ORAL 01/21/18 21:00 02/20/18 20:59 01/22/18 09:36 Enoxaparin Sodium (Lovenox) 30 mg DAILY SUBQ 01/22/18 13:00 02/21/18 12:59 Lorazepam (Ativan) 1 mg Q4H PRN ORAL For Anxiety 01/21/18 19:00 01/28/18 18:59 Morphine Sulfate (Morphine Sulfate) 2 mg Q4H PRN IVP severe pain 01/22/18 09:15 01/28/18 21:14 01/22/18 09:37 Nitroglycerin (Ntg) 0.4 mg Q5M X 3 DOSES PRN SL Prn Chest Pain 01/21/18 19:00 02/20/18 18:59 Ondansetron HCl (Zofran) 4 mg Q4HR PRN IVP Nausea & Vomiting 01/21/18 21:15 02/20/18 21:14 01/22/18 10:42 Pantoprazole (Protonix) 40 mg DAILY IVP 01/22/18 09:00 02/21/18 08:59 01/22/18 09:36 Sodium Chloride 1,000 ml @ 125 mls/hr Q8H IVLG 01/21/18 19:54 02/20/18 19:53 01/22/18 11:17 Zolpidem Tartrate (Ambien) 5 mg HSPRN PRN ORAL Insomnia 01/21/18 19:00 01/28/18 18:59 Assessment and Recs: Recurrent pancreatitis - hx of recurrent pancreatitis and abd pain before, GB sludge and possible tiny stones noted --> IVF have been started, GI and surgery to eval patient --> abdominal U/S reviewed >> Gallbladder sludge possible tiny stones. --> MRCP ordered. --> NPO Transaminitis is likely related to above issue --> CMP in the am Hypertriglyceredemia - monitor for improvement, diet change as required Malnutrition - improve po intake --> Transit Man service consulted Abdominal pain related to issue of pancreaitits Anemia of chronic disease - monitor for improvement Mick Fontana Jan 24, 2018 17:47
[2018-01-24 20:00] VITALS: BP 124/84
--- NOTE | 2018-01-24 22:15 | History and Physical Report ---
DATE OF ADMISSION: 01/21/2018 INTERNAL MEDICINE HISTORY AND PHYSICAL REASON FOR ADMISSION: Abdominal pain, pancreatitis. IDENTIFYING DATA: The patient is a pleasant 42-year-old female. I have seen her in the past. She has a past medical history significant for chronic pain worsening hypertension, worsening abdominal pain for the past several days, upper vague symptoms over the past several days, again worse until admission, 08/25 in onset, pain is cramping, upper epigastric pain with radiation to the right and left upper quadrants, pain associated with nausea, vomiting, multiple episodes of nonbloody bilious emesis, and pain worsened. In the ER was evaluated, noted to have elevated LFTs and lipase. Ultrasound showed stones and sludge. Surgery called to evaluate the patient for gallstone pancreatitis. Hematology Service consulted for further evaluation and underlying treatment. The patient was eating well until onset of pain, nausea, and vomiting several days ago and at this time, the patient does not report any alcohol use. She has been seen by Surgical Service, Dr. Valdovinos and GI Service as well. Currently NPO, waiting to resolve pancreatitis, and consider diet as needed. LFTs elevated and trending as per GI team. PAST MEDICAL HISTORY: As noted above. PAST SURGICAL HISTORY: None noted. MEDICATIONS: Reviewed. ALLERGIES: . MEDICATIONS: Reviewed. She is on Lovenox, continue Lovenox and pantoprazole. FAMILY HISTORY: Noncontributory. REVIEW OF SYSTEMS: CONSTITUTIONAL: No fevers, chills, or night sweats. SKIN: No rashes, bumps, or itching. HEENT: No headache, hearing or vision changes. BREASTS: No lumps, pain, or discharge. PULMONARY: No cough, sputum, or shortness of breath. GASTROINTESTINAL: Some abdominal pain noted, otherwise, no other events besides . GENITOURINARY: No dysuria, frequency, or urgency. MUSCULOSKELETAL: No joint swelling, muscle pain, or trauma. PHYSICAL EXAMINATION: VITAL SIGNS: Reviewed. GENERAL: No acute distress. PULMONARY: Decreased breath sounds. Some crackles noted at the bases. CARDIOVASCULAR: Regular rate. No S3 or S4 noted. ABDOMEN: Soft. There was some tenderness to palpation at the right upper quadrant that is mild. EXTREMITIES: No cyanosis, swelling, or edema. LABORATORY AND DIAGNOSTIC DATA: WBC is 7.1, hemoglobin 13, hematocrit 39, and platelet count 66,000. ASSESSMENT AND RECOMMENDATIONS: 1. Pancreatitis, likely explaining the patient's abdominal pain. Continue to closely monitor. The patient has had this before. Currently NPO. Potentially to obtain MRCP. LFTs are trending. She has been seen by Gastroenterology and Surgical Service and Pain Management. MRCP has been ordered again. 2. Transaminitis. Continue to closely monitor for improvement. Gallbladder sludge noted with tiny stones. 3. Severe pain, has been seen by pain management, Dr. Shania Fragoso and Navneet. The patient will be increased on morphine 2 mg IV q.4 h. and Ambien as needed. 4. . Continue to closely monitor for improvement. 5. Nausea and vomiting. Continue Zofran and Pepcid. 6. I appreciate media sales consultant care. Mick Fontana M.D. DR: ARLETTE JOB#: [id number] CC:
[2018-01-25] VITALS: BP 117/80
[2018-01-25] MEDS: Zolpidem 5mg tab ORAL PRN (01:31)
[2018-01-25 04:56] VITALS: BP 128/85
[2018-01-25] MEDS: Morphine Sulfate 2mg/ml Inj IVP PRN ×4 (07:10→22:44)
[2018-01-25 07:56] LABS: HEMATOCRIT 37.2 % (37.0-47.0); MEAN CORPUSCULAR VOLUME 99 FL (80-99); PLATELET COUNT 70 K/UL (150-450); RED BLOOD COUNT 3.74 M/UL (4.20-5.40); RED CELL DISTRIBUTION WIDTH 12.3 % (11.6-14.8); WHITE BLOOD COUNT 4.8 K/UL (4.8-10.8)
[2018-01-25 08:00] VITALS: BP 117/80
[2018-01-25 08:17] LABS: ALANINE AMINOTRANSFERASE 114 U/L (12-78); ALBUMIN 3.4 G/DL (3.4-5.0); ALBUMIN/GLOBULIN RATIO 0.8 (1.0-2.7); ALKALINE PHOSPHATASE 191 U/L (46-116); ANION GAP 12 mmol/L (5-15); ASPARTATE AMINO TRANSFERASE 148 U/L (15-37); BILIRUBIN,TOTAL 1.5 MG/DL (0.2-1.0); BLOOD UREA NITROGEN 5 mg/dL (7-18); CALCIUM 9.9 MG/DL (8.5-10.1); CARBON DIOXIDE 29 MMOL/L (21-32); CHLORIDE 92 MMOL/L (98-107); CREATININE 0.6 MG/DL (0.55-1.30); POTASSIUM 2.8 MMOL/L (3.5-5.1); SODIUM 133 MMOL/L (136-145)
[2018-01-25 08:29] LABS: BILIRUBIN,DIRECT 0.7 MG/DL (0.0-0.3)
[2018-01-25] MEDS: Enoxaparin 30mg Inj SUBQ SCH (09:00)
[2018-01-25] MEDS: Docusate 100mg cap ORAL SCH ×2 (09:14→21:00)
[2018-01-25] MEDS: Pantoprazole Inj IVP SCH (09:15)
--- NOTE | 2018-01-25 10:33 | GI Progress Note ---
Assessment/Plan Problems: (1) Transaminitis ICD Codes: R74.0 - Nonspecific elevation of levels of transaminase and lactic acid dehydrogenase [LDH] SNOMED: 278947864 (2) Abdominal pain ICD Codes: R10.9 - Unspecified abdominal pain SNOMED: 24888587 Qualifiers: Qualified Codes: R10.13 - Epigastric pain (3) Malnutrition ICD Codes: E46 - Unspecified protein-calorie malnutrition SNOMED: 1518173 (4) Acute pancreatitis ICD Codes: K85.90 - Acute pancreatitis without necrosis or infection, unspecified SNOMED: 205275287 Status: stable Status Narrative Discussed with Dr. Holt. Assessment/Plan MRCP reviewed >> unremarkable Assessment - pancreatitis Recommendations - adv to soft today - Pain control - Follow labs Subjective Gastrointestinal/Abdominal: Reports: abdominal pain - improving Objective Last 24 Hour Vital Signs Date Time Temp Pulse Resp B/P (MAP) Pulse Ox O2 Delivery O2 Flow Rate FiO2 01/25/18 04:56 99.1 80 20 128/85 99 99.1 01/25/18 00:00 98.3 76 20 117/80 100 98.3 01/24/18 20:00 99.0 73 18 124/84 100 99.0 01/24/18 16:00 98.7 72 18 124/78 99 98.7 01/24/18 12:00 97.4 79 18 118/78 99 97.4 Intake and Output 01/24/18 01/25/18 19:00 07:00 Intake Total 300 ml Balance 300 ml Intake Oral 300 ml # Voids 2 2 Laboratory Tests Test 01/25/18 06:50 White Blood Count 4.8 K/UL (4.8-10.8) Red Blood Count 3.74 M/UL (4.20-5.40) L Hemoglobin 13.0 G/DL (12.0-16.0) Hematocrit 37.2 % (37.0-47.0) Mean Corpuscular Volume 99 FL (80-99) Mean Corpuscular Hemoglobin 34.8 PG (27.0-31.0) H Mean Corpuscular Hemoglobin Concent 35.0 G/DL (32.0-36.0) Red Cell Distribution Width 12.3 % (11.6-14.8) Platelet Count 70 K/UL (150-450) #L Mean Platelet Volume 8.3 FL (6.5-10.1) Neutrophils (%) (Auto) % (45.0-75.0) Lymphocytes (%) (Auto) % (20.0-45.0) Monocytes (%) (Auto) % (1.0-10.0) Eosinophils (%) (Auto) % (0.0-3.0) Basophils (%) (Auto) % (0.0-2.0) Differential Total Cells Counted 100 Neutrophils % (Manual) 80 % (45-75) H Lymphocytes % (Manual) 13 % (20-45) L Monocytes % (Manual) 7 % (1-10) Eosinophils % (Manual) 0 % (0-3) Basophils % (Manual) 0 % (0-2) Band Neutrophils 0 % (0-8) Platelet Estimate Decreased L Platelet Morphology Normal Red Blood Cell Morphology Normal Sodium Level 133 MMOL/L (136-145) L Potassium Level 2.8 MMOL/L (3.5-5.1) L Chloride Level 92 MMOL/L (98-107) L Carbon Dioxide Level 29 MMOL/L (21-32) Anion Gap 12 mmol/L (5-15) Blood Urea Nitrogen 5 mg/dL (7-18) L Creatinine 0.6 MG/DL (0.55-1.30) Estimat Glomerular Filtration Rate > 60 mL/min (>60) Glucose Level 91 MG/DL (74-106) Calcium Level 9.9 MG/DL (8.5-10.1) Total Bilirubin 1.5 MG/DL (0.2-1.0) H Direct Bilirubin 0.7 MG/DL (0.0-0.3) H Aspartate Amino Transf (AST/SGOT) 148 U/L (15-37) H Alanine Aminotransferase (ALT/SGPT) 114 U/L (12-78) H Alkaline Phosphatase 191 U/L (46-116) H Total Protein 7.9 G/DL (6.4-8.2) Albumin 3.4 G/DL (3.4-5.0) Globulin 4.5 g/dL Albumin/Globulin Ratio 0.8 (1.0-2.7) L Lipase 1154 U/L (73-393) H Height (Feet): 5 Height (Inches): 2.00 Weight (Pounds): 108 General Appearance: WD/WN, no apparent distress, alert Cardiovascular: normal rate Respiratory/Chest: normal breath sounds, no respiratory distress Abdominal Exam: normal bowel sounds, non tender, soft Extremities: normal range of motion, non-tender Yarizta Marroquin N.P. Jan 25, 2018 10:33
--- NOTE | 2018-01-25 10:44 | General Progress Note ---
Assessment/Plan Assessment/Plan 1. Pancreatitis, likely explaining the patient's abdominal pain. --> Continue to closely monitor. The patient has had this before. --> Currently NPO. Potentially to obtain MRCP. LFTs are trending. --> She has been seen by Gastroenterology and Surgical Service and Pain Management. MRCP has been ordered again. 2. Transaminitis. --> Continue to closely monitor for improvement. Gallbladder sludge noted with tiny stones. 3. Severe pain, has been seen by pain management, Dr. Shania Fragoso and Navneet. --> The patient will be increased on morphine 2 mg IV q.4 h. and Ambien as needed. 4. Nausea and vomiting. Continue Zofran and Pepcid. Date of Note entry does not reflect when patient was seen Subjective Date patient seen: Jan 23, 2018 Constitutional: Denies: no symptoms, chills, diaphoresis, fever, malaise, weakness, other HEENT: Denies: no symptoms, eye pain, blurred vision, tearing, double vision, ear pain, ear discharge, nose pain, nose congestion, throat pain, throat swelling, mouth pain, mouth swelling, other Cardiovascular: Denies: no symptoms, chest pain, edema, irregular heart rate, lightheadedness, palpitations, syncope, other Respiratory: Denies: no symptoms, cough, orthopnea, shortness of breath, SOB with excertion, SOB at rest, sputum, stridor, wheezing, other Gastrointestinal/Abdominal: Denies: no symptoms, abdomen distended, abdominal pain, black stools, tarry stools, blood in stool, constipated, diarrhea, difficulty swallowing, nausea, poor appetite, poor fluid intake, rectal bleeding , vomiting, other Genitourinary: Denies: no symptoms, burning, discharge, frequency, flank pain, hematuria, incontinence, pain, urgency, other Neurologic/Psychiatric: Denies: no symptoms, anxiety, depressed, emotional problems, headache, numbness, paresthesia, pre-existing deficit, seizure, tingling, tremors, weakness, other Allergies: Coded Allergies: PEANUT (Unverified Allergy, Unknown, 07/26/14) SESAME OIL (Unverified Allergy, Unknown, 12/26/16) Subjective Ongoing pain control. No fever. Objective VS - Last 72 Hours, by Label Date Time Temp Pulse Resp B/P (MAP) Pulse Ox O2 Delivery O2 Flow Rate FiO2 01/25/18 04:56 99.1 80 20 128/85 99 99.1 01/25/18 00:00 98.3 76 20 117/80 100 98.3 01/24/18 20:00 99.0 73 18 124/84 100 99.0 01/24/18 16:00 98.7 72 18 124/78 99 98.7 01/24/18 12:00 97.4 79 18 118/78 99 97.4 01/24/18 08:00 97.7 76 18 110/78 99 97.7 01/24/18 04:32 96.3 78 18 112/76 99 96.3 01/24/18 00:00 98.9 71 18 115/70 97 98.9 01/23/18 20:25 98.1 01/23/18 20:13 98.1 82 17 119/84 99 98.1 01/23/18 19:55 98.5 01/23/18 16:00 98.5 83 18 126/69 100 Room Air 98.5 01/23/18 12:00 98.7 72 18 120/82 100 Room Air 98.7 01/23/18 08:00 99.2 84 18 131/81 100 Room Air 99.2 01/23/18 04:03 98.4 95 18 117/85 100 Room Air 98.4 01/23/18 00:34 98.6 94 18 120/75 100 Room Air 98.6 01/22/18 20:00 98.4 84 18 118/80 100 Room Air 98.4 01/22/18 12:00 98.3 81 18 135/79 98 Room Air 98.3 Last 24 Hour Vital Signs Date Time Temp Pulse Resp B/P (MAP) Pulse Ox O2 Delivery O2 Flow Rate FiO2 01/25/18 04:56 99.1 80 20 128/85 99 99.1 01/25/18 00:00 98.3 76 20 117/80 100 98.3 01/24/18 20:00 99.0 73 18 124/84 100 99.0 01/24/18 16:00 98.7 72 18 124/78 99 98.7 01/24/18 12:00 97.4 79 18 118/78 99 97.4 Intake and Output 01/24/18 01/25/18 19:00 07:00 Intake Total 300 ml Balance 300 ml Intake Oral 300 ml # Voids 2 2 Labs Test 01/22/18 11:00 01/23/18 06:18 01/24/18 06:28 01/25/18 06:50 Urine Opiates Screen Positive (NEGATIVE) Urine Barbiturates Screen Negative (NEGATIVE) Phencyclidine (PCP) Screen Negative (NEGATIVE) Urine Amphetamines Screen Negative (NEGATIVE) Urine Benzodiazepines Screen Negative (NEGATIVE) Urine Cocaine Screen Negative (NEGATIVE) Urine Marijuana (THC) Screen Negative (NEGATIVE) White Blood Count 8.2 K/UL (4.8-10.8) 5.8 K/UL (4.8-10.8) 4.8 K/UL (4.8-10.8) Red Blood Count 3.78 M/UL (4.20-5.40) 3.55 M/UL (4.20-5.40) 3.74 M/UL (4.20-5.40) Hemoglobin 13.2 G/DL (12.0-16.0) 12.3 G/DL (12.0-16.0) 13.0 G/DL (12.0-16.0) Hematocrit 38.4 % (37.0-47.0) 35.5 % (37.0-47.0) 37.2 % (37.0-47.0) Mean Corpuscular Volume 102 FL (80-99) 100 FL (80-99) 99 FL (80-99) Mean Corpuscular Hemoglobin 34.9 PG (27.0-31.0) 34.7 PG (27.0-31.0) 34.8 PG (27.0-31.0) Mean Corpuscular Hemoglobin Concent 34.3 G/DL (32.0-36.0) 34.6 G/DL (32.0-36.0) 35.0 G/DL (32.0-36.0) Red Cell Distribution Width 12.8 % (11.6-14.8) 12.7 % (11.6-14.8) 12.3 % (11.6-14.8) Platelet Count 52 K/UL (150-450) 46 K/UL (150-450) 70 K/UL (150-450) Mean Platelet Volume 7.1 FL (6.5-10.1) 8.4 FL (6.5-10.1) 8.3 FL (6.5-10.1) Neutrophils (%) (Auto) % (45.0-75.0) % (45.0-75.0) % (45.0-75.0) Lymphocytes (%) (Auto) % (20.0-45.0) % (20.0-45.0) % (20.0-45.0) Monocytes (%) (Auto) % (1.0-10.0) % (1.0-10.0) % (1.0-10.0) Eosinophils (%) (Auto) % (0.0-3.0) % (0.0-3.0) % (0.0-3.0) Basophils (%) (Auto) % (0.0-2.0) % (0.0-2.0) % (0.0-2.0) Differential Total Cells Counted 100 100 100 Neutrophils % (Manual) 89 % (45-75) 82 % (45-75) 80 % (45-75) Lymphocytes % (Manual) 5 % (20-45) 10 % (20-45) 13 % (20-45) Monocytes % (Manual) 6 % (1-10) 8 % (1-10) 7 % (1-10) Eosinophils % (Manual) 0 % (0-3) 0 % (0-3) 0 % (0-3) Basophils % (Manual) 0 % (0-2) 0 % (0-2) 0 % (0-2) Band Neutrophils 0 % (0-8) 0 % (0-8) 0 % (0-8) Platelet Estimate Decreased Decreased Decreased Platelet Morphology Normal Normal Normal Macrocytosis 1+ Sodium Level 132 MMOL/L (136-145) 133 MMOL/L (136-145) 133 MMOL/L (136-145) Potassium Level 3.2 MMOL/L (3.5-5.1) 3.6 MMOL/L (3.5-5.1) 2.8 MMOL/L (3.5-5.1) Chloride Level 97 MMOL/L (98-107) 99 MMOL/L (98-107) 92 MMOL/L (98-107) Carbon Dioxide Level 16 MMOL/L (21-32) 21 MMOL/L (21-32) 29 MMOL/L (21-32) Anion Gap 19 mmol/L (5-15) 13 mmol/L (5-15) 12 mmol/L (5-15) Blood Urea Nitrogen 4 mg/dL (7-18) 4 mg/dL (7-18) 5 mg/dL (7-18) Creatinine 0.9 MG/DL (0.55-1.30) 0.7 MG/DL (0.55-1.30) 0.6 MG/DL (0.55-1.30) Estimat Glomerular Filtration Rate > 60 mL/min (>60) > 60 mL/min (>60) > 60 mL/min (>60) Glucose Level 98 MG/DL (74-106) 79 MG/DL (74-106) 91 MG/DL (74-106) Calcium Level 9.4 MG/DL (8.5-10.1) 9.1 MG/DL (8.5-10.1) 9.9 MG/DL (8.5-10.1) Total Bilirubin 1.4 MG/DL (0.2-1.0) 1.3 MG/DL (0.2-1.0) 1.5 MG/DL (0.2-1.0) Direct Bilirubin 0.6 MG/DL (0.0-0.3) 0.3 MG/DL (0.0-0.3) 0.7 MG/DL (0.0-0.3) Aspartate Amino Transf (AST/SGOT) 138 U/L (15-37) 126 U/L (15-37) 148 U/L (15-37) Alanine Aminotransferase (ALT/SGPT) 110 U/L (12-78) 95 U/L (12-78) 114 U/L (12-78) Alkaline Phosphatase 142 U/L (46-116) 136 U/L (46-116) 191 U/L (46-116) Total Protein 7.6 G/DL (6.4-8.2) 7.3 G/DL (6.4-8.2) 7.9 G/DL (6.4-8.2) Albumin 3.3 G/DL (3.4-5.0) 3.1 G/DL (3.4-5.0) 3.4 G/DL (3.4-5.0) Globulin 4.3 g/dL 4.2 g/dL 4.5 g/dL Albumin/Globulin Ratio 0.8 (1.0-2.7) 0.7 (1.0-2.7) 0.8 (1.0-2.7) Triglycerides Level 57 MG/DL (30-150) Cholesterol Level 203 MG/DL (< 200) LDL Cholesterol 89 mg/dL (<100) HDL Cholesterol 87 MG/DL (40-60) Cholesterol/HDL Ratio 2.3 (3.3-4.4) Lipase 1442 U/L (73-393) 720 U/L (73-393) 1154 U/L (73-393) Red Blood Cell Morphology Normal Normal Microcytosis Laboratory Tests 01/25/18 06:50: White Blood Count 4.8, Red Blood Count 3.74L, Hemoglobin 13.0, Hematocrit 37.2, Mean Corpuscular Volume 99, Mean Corpuscular Hemoglobin 34.8H, Mean Corpuscular Hemoglobin Concent 35.0, Red Cell Distribution Width 12.3, Platelet Count 70#L, Mean Platelet Volume 8.3, Neutrophils (%) (Auto) , Lymphocytes (%) (Auto) , Monocytes (%) (Auto) , Eosinophils (%) (Auto) , Basophils (%) (Auto) , Differential Total Cells Counted 100, Neutrophils % (Manual) 80H, Lymphocytes % (Manual) 13L, Monocytes % (Manual) 7, Eosinophils % (Manual) 0, Basophils % ( Manual) 0, Band Neutrophils 0, Platelet Estimate DecreasedL, Platelet Morphology Normal, Red Blood Cell Morphology Normal, Sodium Level 133L, Potassium Level 2.8L, Chloride Level 92L, Carbon Dioxide Level 29, Anion Gap 12 , Blood Urea Nitrogen 5L, Creatinine 0.6, Estimat Glomerular Filtration Rate > 60, Glucose Level 91, Calcium Level 9.9, Total Bilirubin 1.5H, Direct Bilirubin 0.7H, Aspartate Amino Transf (AST/SGOT) 148H, Alanine Aminotransferase (ALT/SGPT ) 114H, Alkaline Phosphatase 191H, Total Protein 7.9, Albumin 3.4, Globulin 4.5 , Albumin/Globulin Ratio 0.8L, Lipase 1154H Height (Feet): 5 Height (Inches): 2.00 Weight (Pounds): 108 General Appearance: lethargic Respiratory/Chest: decreased breath sounds Edema: trace edema Mick Fontana Jan 25, 2018 10:44
--- NOTE | 2018-01-25 10:46 | General Progress Note ---
Assessment/Plan Assessment/Plan #. Severe pain, has been seen by pain management, Dr. Shania Fragoso and Navneet. --> The patient will be increased on morphine 2 mg IV q.4 h. and Ambien as needed. --> Pt feeling better and pain has improved. #. Pancreatitis, likely explaining the patient's abdominal pain. --> Continue to closely monitor. The patient has had this before. --> Currently NPO. Potentially to obtain MRCP. LFTs are trending. --> She has been seen by Gastroenterology and Surgical Service and Pain Management. MRCP has been ordered again. #. Transaminitis. --> Continue to closely monitor for improvement. Gallbladder sludge noted with tiny stones. #. Nausea and vomiting. Continue Zofran and Pepcid. Subjective Date patient seen: Jan 24, 2018 Constitutional: Denies: no symptoms, chills, diaphoresis, fever, malaise, weakness, other HEENT: Denies: no symptoms, eye pain, blurred vision, tearing, double vision, ear pain, ear discharge, nose pain, nose congestion, throat pain, throat swelling, mouth pain, mouth swelling, other Cardiovascular: Denies: no symptoms, chest pain, edema, irregular heart rate, lightheadedness, palpitations, syncope, other Respiratory: Denies: no symptoms, cough, orthopnea, shortness of breath, SOB with excertion, SOB at rest, sputum, stridor, wheezing, other Gastrointestinal/Abdominal: Denies: no symptoms, abdomen distended, abdominal pain, black stools, tarry stools, blood in stool, constipated, diarrhea, difficulty swallowing, nausea, poor appetite, poor fluid intake, rectal bleeding , vomiting, other Genitourinary: Denies: no symptoms, burning, discharge, frequency, flank pain, hematuria, incontinence, pain, urgency, other Neurologic/Psychiatric: Denies: no symptoms, anxiety, depressed, emotional problems, headache, numbness, paresthesia, pre-existing deficit, seizure, tingling, tremors, weakness, other Allergies: Coded Allergies: PEANUT (Unverified Allergy, Unknown, 07/26/14) SESAME OIL (Unverified Allergy, Unknown, 12/26/16) Subjective Ongoing pain control. Feeling better. No fever. Objective Last 24 Hour Vital Signs Date Time Temp Pulse Resp B/P (MAP) Pulse Ox O2 Delivery O2 Flow Rate FiO2 01/25/18 04:56 99.1 80 20 128/85 99 99.1 01/25/18 00:00 98.3 76 20 117/80 100 98.3 01/24/18 20:00 99.0 73 18 124/84 100 99.0 01/24/18 16:00 98.7 72 18 124/78 99 98.7 01/24/18 12:00 97.4 79 18 118/78 99 97.4 Intake and Output 01/24/18 01/25/18 19:00 07:00 Intake Total 300 ml Balance 300 ml Intake Oral 300 ml # Voids 2 2 Laboratory Tests 01/25/18 06:50: White Blood Count 4.8, Red Blood Count 3.74L, Hemoglobin 13.0, Hematocrit 37.2, Mean Corpuscular Volume 99, Mean Corpuscular Hemoglobin 34.8H, Mean Corpuscular Hemoglobin Concent 35.0, Red Cell Distribution Width 12.3, Platelet Count 70#L, Mean Platelet Volume 8.3, Neutrophils (%) (Auto) , Lymphocytes (%) (Auto) , Monocytes (%) (Auto) , Eosinophils (%) (Auto) , Basophils (%) (Auto) , Differential Total Cells Counted 100, Neutrophils % (Manual) 80H, Lymphocytes % (Manual) 13L, Monocytes % (Manual) 7, Eosinophils % (Manual) 0, Basophils % ( Manual) 0, Band Neutrophils 0, Platelet Estimate DecreasedL, Platelet Morphology Normal, Red Blood Cell Morphology Normal, Sodium Level 133L, Potassium Level 2.8L, Chloride Level 92L, Carbon Dioxide Level 29, Anion Gap 12 , Blood Urea Nitrogen 5L, Creatinine 0.6, Estimat Glomerular Filtration Rate > 60, Glucose Level 91, Calcium Level 9.9, Total Bilirubin 1.5H, Direct Bilirubin 0.7H, Aspartate Amino Transf (AST/SGOT) 148H, Alanine Aminotransferase (ALT/SGPT ) 114H, Alkaline Phosphatase 191H, Total Protein 7.9, Albumin 3.4, Globulin 4.5 , Albumin/Globulin Ratio 0.8L, Lipase 1154H Height (Feet): 5 Height (Inches): 2.00 Weight (Pounds): 108 Respiratory/Chest: decreased breath sounds Mick Fontana Jan 25, 2018 10:46
--- NOTE | 2018-01-25 12:20 | General Surgery Progress Note ---
General Surgery-Progress Note Subjective Symptoms: improved Additional Comments doing well. tolerating diet. ambulatory. denies pain. no n/v/f/c. Objective Last 24 Hour Vital Signs Date Time Temp Pulse Resp B/P (MAP) Pulse Ox O2 Delivery O2 Flow Rate FiO2 01/25/18 04:56 99.1 80 20 128/85 99 99.1 01/25/18 00:00 98.3 76 20 117/80 100 98.3 01/24/18 20:00 99.0 73 18 124/84 100 99.0 01/24/18 16:00 98.7 72 18 124/78 99 98.7 I&O Intake and Output 01/24/18 01/25/18 19:00 07:00 Intake Total 300 ml Balance 300 ml Intake Oral 300 ml # Voids 2 2 Cardiovascular: RSR Respiratory: clear Abdomen: soft, flat, non-tender, present bowel sounds Extremities: no tenderness Laboratory Tests Test 01/25/18 06:50 White Blood Count 4.8 K/UL (4.8-10.8) Red Blood Count 3.74 M/UL (4.20-5.40) L Hemoglobin 13.0 G/DL (12.0-16.0) Hematocrit 37.2 % (37.0-47.0) Mean Corpuscular Volume 99 FL (80-99) Mean Corpuscular Hemoglobin 34.8 PG (27.0-31.0) H Mean Corpuscular Hemoglobin Concent 35.0 G/DL (32.0-36.0) Red Cell Distribution Width 12.3 % (11.6-14.8) Platelet Count 70 K/UL (150-450) #L Mean Platelet Volume 8.3 FL (6.5-10.1) Neutrophils (%) (Auto) % (45.0-75.0) Lymphocytes (%) (Auto) % (20.0-45.0) Monocytes (%) (Auto) % (1.0-10.0) Eosinophils (%) (Auto) % (0.0-3.0) Basophils (%) (Auto) % (0.0-2.0) Differential Total Cells Counted 100 Neutrophils % (Manual) 80 % (45-75) H Lymphocytes % (Manual) 13 % (20-45) L Monocytes % (Manual) 7 % (1-10) Eosinophils % (Manual) 0 % (0-3) Basophils % (Manual) 0 % (0-2) Band Neutrophils 0 % (0-8) Platelet Estimate Decreased L Platelet Morphology Normal Red Blood Cell Morphology Normal Sodium Level 133 MMOL/L (136-145) L Potassium Level 2.8 MMOL/L (3.5-5.1) L Chloride Level 92 MMOL/L (98-107) L Carbon Dioxide Level 29 MMOL/L (21-32) Anion Gap 12 mmol/L (5-15) Blood Urea Nitrogen 5 mg/dL (7-18) L Creatinine 0.6 MG/DL (0.55-1.30) Estimat Glomerular Filtration Rate > 60 mL/min (>60) Glucose Level 91 MG/DL (74-106) Calcium Level 9.9 MG/DL (8.5-10.1) Total Bilirubin 1.5 MG/DL (0.2-1.0) H Direct Bilirubin 0.7 MG/DL (0.0-0.3) H Aspartate Amino Transf (AST/SGOT) 148 U/L (15-37) H Alanine Aminotransferase (ALT/SGPT) 114 U/L (12-78) H Alkaline Phosphatase 191 U/L (46-116) H Total Protein 7.9 G/DL (6.4-8.2) Albumin 3.4 G/DL (3.4-5.0) Globulin 4.5 g/dL Albumin/Globulin Ratio 0.8 (1.0-2.7) L Lipase 1154 U/L (73-393) H Plan Problems: (1) Acute gallstone pancreatitis Assessment & Plan: 42F with likely acute gallstone pancreatitis. Does have social EtOH history but no heavy history. Afebrile, HD stable, labs reviewed. no leukocytosis. LFTs elevated and trending down. T bili elevated but trending down. Lipase trending down. MRCP without choledocholithiasis. tolerating diet. slight elevation of lipase but clinically improved. -diet as tolerated -trend labs -if hospital course uneventful will recommend lap allison during this admission. Miguel Valdovinos Jan 25, 2018 12:19
--- NOTE | 2018-01-25 13:42 | General Progress Note ---
Assessment/Plan Problem List: (1) Hypokalemia ICD Codes: E87.6 - Hypokalemia SNOMED: 51844575 (2) Acute pancreatitis ICD Codes: K85.90 - Acute pancreatitis without necrosis or infection, unspecified SNOMED: 631041520 Status: unchanged Assessment/Plan diet eval cbc bmp am soc serv eval per pt request replace k prn Subjective Constitutional: Reports: weakness Allergies: Coded Allergies: PEANUT (Unverified Allergy, Unknown, 07/26/14) SESAME OIL (Unverified Allergy, Unknown, 12/26/16) All Systems: reviewed and negative except above Subjective calm no appettite Objective Last 24 Hour Vital Signs Date Time Temp Pulse Resp B/P (MAP) Pulse Ox O2 Delivery O2 Flow Rate FiO2 01/25/18 04:56 99.1 80 20 128/85 99 99.1 01/25/18 00:00 98.3 76 20 117/80 100 98.3 01/24/18 20:00 99.0 73 18 124/84 100 99.0 01/24/18 16:00 98.7 72 18 124/78 99 98.7 Intake and Output 01/24/18 01/25/18 19:00 07:00 Intake Total 300 ml Balance 300 ml Intake Oral 300 ml # Voids 2 2 Laboratory Tests 01/25/18 06:50: White Blood Count 4.8, Red Blood Count 3.74L, Hemoglobin 13.0, Hematocrit 37.2, Mean Corpuscular Volume 99, Mean Corpuscular Hemoglobin 34.8H, Mean Corpuscular Hemoglobin Concent 35.0, Red Cell Distribution Width 12.3, Platelet Count 70#L, Mean Platelet Volume 8.3, Neutrophils (%) (Auto) , Lymphocytes (%) (Auto) , Monocytes (%) (Auto) , Eosinophils (%) (Auto) , Basophils (%) (Auto) , Differential Total Cells Counted 100, Neutrophils % (Manual) 80H, Lymphocytes % (Manual) 13L, Monocytes % (Manual) 7, Eosinophils % (Manual) 0, Basophils % ( Manual) 0, Band Neutrophils 0, Platelet Estimate DecreasedL, Platelet Morphology Normal, Red Blood Cell Morphology Normal, Sodium Level 133L, Potassium Level 2.8L, Chloride Level 92L, Carbon Dioxide Level 29, Anion Gap 12 , Blood Urea Nitrogen 5L, Creatinine 0.6, Estimat Glomerular Filtration Rate > 60, Glucose Level 91, Calcium Level 9.9, Total Bilirubin 1.5H, Direct Bilirubin 0.7H, Aspartate Amino Transf (AST/SGOT) 148H, Alanine Aminotransferase (ALT/SGPT ) 114H, Alkaline Phosphatase 191H, Total Protein 7.9, Albumin 3.4, Globulin 4.5 , Albumin/Globulin Ratio 0.8L, Lipase 1154H Height (Feet): 5 Height (Inches): 2.00 Weight (Pounds): 108 General Appearance: alert EENT: normal ENT inspection Neck: normal alignment Cardiovascular: normal peripheral pulses, normal rate, regular rhythm Respiratory/Chest: chest wall non-tender, lungs clear, normal breath sounds Abdomen: normal bowel sounds, non tender, soft Extremities: normal inspection Edema: no edema noted Arm (L), no edema noted Arm (R), no edema noted Leg (L), no edema noted Leg (R), no edema noted Pedal (L), no edema noted Pedal (R), no edema noted Generalized Neurologic: responsive, motor weakness Skin: normal pigmentation, warm/dry SURYA PRICE Jan 25, 2018 13:42
[2018-01-25 16:00] VITALS: BP 117/80
[2018-01-25 20:00] VITALS: BP 113/70
[2018-01-26] VITALS: BP 113/80
[2018-01-26] MEDS: Zolpidem 5mg tab ORAL PRN (00:52)
[2018-01-26] MEDS: Morphine Sulfate 2mg/ml Inj IVP PRN ×4 (03:45→19:19)
[2018-01-26 04:00] VITALS: BP 123/68
[2018-01-26 06:56] LABS: BASOPHILS % (AUTO) 1.8 % (0.0-2.0); EOSINOPHILS % (AUTO) 1.7 % (0.0-3.0); HEMATOCRIT 38.6 % (37.0-47.0); HEMOGLOBIN 13.4 G/DL (12.0-16.0); LYMPHOCYTES % (AUTO) 18.9 % (20.0-45.0); MEAN CORPUSCULAR VOLUME 100 FL (80-99); MONOCYTES % (AUTO) 12.5 % (1.0-10.0); PLATELET COUNT 107 K/UL (150-450); RED BLOOD COUNT 3.87 M/UL (4.20-5.40); RED CELL DISTRIBUTION WIDTH 12.5 % (11.6-14.8); WHITE BLOOD COUNT 4.6 K/UL (4.8-10.8)
[2018-01-26 07:31] LABS: ALANINE AMINOTRANSFERASE 157 U/L (12-78); ALBUMIN 3.5 G/DL (3.4-5.0); ALBUMIN/GLOBULIN RATIO 0.7 (1.0-2.7); ALKALINE PHOSPHATASE 209 U/L (46-116); AMYLASE 133 U/L (25-115); ANION GAP 11 mmol/L (5-15); ASPARTATE AMINO TRANSFERASE 217 U/L (15-37); BILIRUBIN,DIRECT 0.4 MG/DL (0.0-0.3); BILIRUBIN,TOTAL 1.2 MG/DL (0.2-1.0); BLOOD UREA NITROGEN 5 mg/dL (7-18); CALCIUM 10.2 MG/DL (8.5-10.1); CARBON DIOXIDE 30 MMOL/L (21-32); CHLORIDE 93 MMOL/L (98-107); CREATININE 0.6 MG/DL (0.55-1.30); POTASSIUM 3.3 MMOL/L (3.5-5.1); SODIUM 134 MMOL/L (136-145)
[2018-01-26 08:00] VITALS: BP 115/82
[2018-01-26] MEDS: Enoxaparin 30mg Inj SUBQ SCH (09:00)
[2018-01-26] MEDS: Docusate 100mg cap ORAL SCH ×2 (09:15→20:28)
[2018-01-26] MEDS: Pantoprazole Inj IVP SCH (09:15)
[2018-01-26 12:00] VITALS: BP 134/81
--- NOTE | 2018-01-26 12:08 | General Surgery Progress Note ---
General Surgery-Progress Note Subjective Additional Comments doing well. did not like regular food yesterday and requested to stay on liquids. no n/v/f/c. pain almost resolved and states improving daily. currently no abdominal pain. Objective Last 24 Hour Vital Signs Date Time Temp Pulse Resp B/P (MAP) Pulse Ox O2 Delivery O2 Flow Rate FiO2 01/26/18 08:00 98.3 91 20 115/82 97 Room Air 98.3 01/26/18 04:00 98.4 73 20 123/68 98 98.4 01/26/18 00:00 98.2 76 20 113/80 98 98.2 01/25/18 20:00 98.2 90 20 113/70 98 98.2 01/25/18 18:24 98.2 01/25/18 17:54 98.2 01/25/18 16:00 98.2 90 20 117/80 99 98.2 90 I&O Intake and Output 01/25/18 01/26/18 19:00 07:00 Intake Total 480 ml 650 ml Balance 480 ml 650 ml Intake Oral 480 ml 650 ml # Voids 5 Cardiovascular: RSR Respiratory: clear Abdomen: soft, flat, non-tender, present bowel sounds Extremities: no edema, no tenderness, no cyanosis Laboratory Tests Test 01/26/18 06:15 White Blood Count 4.6 K/UL (4.8-10.8) L Red Blood Count 3.87 M/UL (4.20-5.40) L Hemoglobin 13.4 G/DL (12.0-16.0) Hematocrit 38.6 % (37.0-47.0) Mean Corpuscular Volume 100 FL (80-99) H Mean Corpuscular Hemoglobin 34.6 PG (27.0-31.0) H Mean Corpuscular Hemoglobin Concent 34.7 G/DL (32.0-36.0) Red Cell Distribution Width 12.5 % (11.6-14.8) Platelet Count 107 K/UL (150-450) #L Mean Platelet Volume 8.1 FL (6.5-10.1) Neutrophils (%) (Auto) 65.0 % (45.0-75.0) Lymphocytes (%) (Auto) 18.9 % (20.0-45.0) L Monocytes (%) (Auto) 12.5 % (1.0-10.0) H Eosinophils (%) (Auto) 1.7 % (0.0-3.0) Basophils (%) (Auto) 1.8 % (0.0-2.0) Sodium Level 134 MMOL/L (136-145) L Potassium Level 3.3 MMOL/L (3.5-5.1) L Chloride Level 93 MMOL/L (98-107) L Carbon Dioxide Level 30 MMOL/L (21-32) Anion Gap 11 mmol/L (5-15) Blood Urea Nitrogen 5 mg/dL (7-18) L Creatinine 0.6 MG/DL (0.55-1.30) Estimat Glomerular Filtration Rate > 60 mL/min (>60) Glucose Level 93 MG/DL (74-106) Calcium Level 10.2 MG/DL (8.5-10.1) H Total Bilirubin 1.2 MG/DL (0.2-1.0) H Direct Bilirubin 0.4 MG/DL (0.0-0.3) H Aspartate Amino Transf (AST/SGOT) 217 U/L (15-37) H Alanine Aminotransferase (ALT/SGPT) 157 U/L (12-78) H Alkaline Phosphatase 209 U/L (46-116) H Total Protein 8.3 G/DL (6.4-8.2) H Albumin 3.5 G/DL (3.4-5.0) Globulin 4.8 g/dL Albumin/Globulin Ratio 0.7 (1.0-2.7) L Amylase Level 133 U/L (25-115) H Lipase 1181 U/L (73-393) H Hepatitis A IgM Antibody Pending Hepatitis B Surface Antigen Pending Hepatitis B Core IgM Antibody Pending Hepatitis C Antibody Pending Plan Problems: (1) Acute gallstone pancreatitis Assessment & Plan: 42F with likely acute gallstone pancreatitis. Does have social EtOH history but no heavy history. Afebrile, HD stable, labs reviewed. no leukocytosis. LFTs elevated and trending up. Lipase trending up again. MRCP without choledocholithiasis. tolerating diet. pain resolving. clinically improving despite slight elevation in lab values. -diet as tolerated -trend labs -discussed etiology again with patient. states she drinks EtOH socially and has a glass of wine daily. 3 days prior to admission did have binge intake at a constitution party. given clinical course this may be related to EtOH more so than cholelithiasis. given history of pancreatitis before requiring hospitalization and not have cholecystectomy prior likely similar prior episode related to EtOH intake as well. Would still recommend cholecystectomy to rule out as possible etiology but may consider in elective setting. -furthermore, if enzyme levels continue to elevate, may consider repeat CT scan -will follow with recs. Miguel Valdovinos Jan 26, 2018 12:07
--- NOTE | 2018-01-26 12:35 | General Progress Note ---
Assessment/Plan Assessment/Plan #. Severe pain, has been seen by pain management, Dr. Shania Fragoso and Navneet. --> The patient will be increased on morphine 2 mg IV q.4 h. and Ambien as needed. --> Pt feeling better and pain has improved. #. Pancreatitis, likely explaining the patient's abdominal pain. --> Continue to closely monitor. The patient has had this before. --> Currently NPO. Potentially to obtain MRCP. LFTs are trending. --> She has been seen by Gastroenterology and Surgical Service and Pain Management. MRCP has been ordered again. #. Transaminitis. --> Continue to closely monitor for improvement. Gallbladder sludge noted with tiny stones. #. Nausea and vomiting. Continue Zofran and Pepcid. #. Thrombocytopenia. --> Improving. Subjective Date patient seen: Jan 25, 2018 Constitutional: Denies: no symptoms, chills, diaphoresis, fever, malaise, weakness, other HEENT: Denies: no symptoms, eye pain, blurred vision, tearing, double vision, ear pain, ear discharge, nose pain, nose congestion, throat pain, throat swelling, mouth pain, mouth swelling, other Cardiovascular: Denies: no symptoms, chest pain, edema, irregular heart rate, lightheadedness, palpitations, syncope, other Respiratory: Denies: no symptoms, cough, orthopnea, shortness of breath, SOB with excertion, SOB at rest, sputum, stridor, wheezing, other Gastrointestinal/Abdominal: Denies: no symptoms, abdomen distended, abdominal pain, black stools, tarry stools, blood in stool, constipated, diarrhea, difficulty swallowing, nausea, poor appetite, poor fluid intake, rectal bleeding , vomiting, other Genitourinary: Denies: no symptoms, burning, discharge, frequency, flank pain, hematuria, incontinence, pain, urgency, other Hematologic/Lymphatic: Reports: anemia Allergies: Coded Allergies: PEANUT (Unverified Allergy, Unknown, 07/26/14) SESAME OIL (Unverified Allergy, Unknown, 12/26/16) Subjective Platelets improved. Ongoing pain management. Objective Last 24 Hour Vital Signs Date Time Temp Pulse Resp B/P (MAP) Pulse Ox O2 Delivery O2 Flow Rate FiO2 01/26/18 08:00 98.3 91 20 115/82 97 Room Air 98.3 01/26/18 04:00 98.4 73 20 123/68 98 98.4 01/26/18 00:00 98.2 76 20 113/80 98 98.2 01/25/18 20:00 98.2 90 20 113/70 98 98.2 01/25/18 18:24 98.2 01/25/18 17:54 98.2 01/25/18 16:00 98.2 90 20 117/80 99 98.2 90 Intake and Output 01/25/18 01/26/18 19:00 07:00 Intake Total 480 ml 650 ml Balance 480 ml 650 ml Intake Oral 480 ml 650 ml # Voids 5 Laboratory Tests 01/26/18 06:15: White Blood Count 4.6L, Red Blood Count 3.87L, Hemoglobin 13.4, Hematocrit 38.6 , Mean Corpuscular Volume 100H, Mean Corpuscular Hemoglobin 34.6H, Mean Corpuscular Hemoglobin Concent 34.7, Red Cell Distribution Width 12.5, Platelet Count 107#L, Mean Platelet Volume 8.1, Neutrophils (%) (Auto) 65.0, Lymphocytes (%) (Auto) 18.9L, Monocytes (%) (Auto) 12.5H, Eosinophils (%) (Auto) 1.7, Basophils (%) (Auto) 1.8, Sodium Level 134L, Potassium Level 3.3L, Chloride Level 93L, Carbon Dioxide Level 30, Anion Gap 11, Blood Urea Nitrogen 5L, Creatinine 0.6, Estimat Glomerular Filtration Rate > 60, Glucose Level 93, Calcium Level 10.2H, Total Bilirubin 1.2H, Direct Bilirubin 0.4H, Aspartate Amino Transf (AST/SGOT) 217H, Alanine Aminotransferase (ALT/SGPT) 157H, Alkaline Phosphatase 209H, Total Protein 8.3H, Albumin 3.5, Globulin 4.8, Albumin/Globulin Ratio 0.7L, Amylase Level 133H, Lipase 1181H, Hepatitis A IgM Antibody [Pending], Hepatitis B Surface Antigen [Pending], Hepatitis B Core IgM Antibody [Pending], Hepatitis C Antibody [Pending] Height (Feet): 5 Height (Inches): 2.00 Weight (Pounds): 108 General Appearance: confused Respiratory/Chest: decreased breath sounds Mick Fontana Jan 26, 2018 12:35
--- NOTE | 2018-01-26 14:45 | General Progress Note ---
Assessment/Plan Problem List: (1) Hypokalemia ICD Codes: E87.6 - Hypokalemia SNOMED: 74386029 (2) Acute pancreatitis ICD Codes: K85.90 - Acute pancreatitis without necrosis or infection, unspecified SNOMED: 701036934 Status: stable, progressing, tolerating diet Assessment/Plan diet eval cbc bmp am soc serv eval per pt request replace k prn dc if clear Subjective Constitutional: Reports: weakness Allergies: Coded Allergies: PEANUT (Unverified Allergy, Unknown, 07/26/14) SESAME OIL (Unverified Allergy, Unknown, 12/26/16) All Systems: reviewed and negative except above Subjective calm ate slightly Objective Last 24 Hour Vital Signs Date Time Temp Pulse Resp B/P (MAP) Pulse Ox O2 Delivery O2 Flow Rate FiO2 01/26/18 12:00 98.3 82 19 134/81 99 Room Air 98.3 01/26/18 08:00 98.3 91 20 115/82 97 Room Air 98.3 01/26/18 04:00 98.4 73 20 123/68 98 98.4 01/26/18 00:00 98.2 76 20 113/80 98 98.2 01/25/18 20:00 98.2 90 20 113/70 98 98.2 01/25/18 18:24 98.2 01/25/18 17:54 98.2 01/25/18 16:00 98.2 90 20 117/80 99 98.2 90 Intake and Output 01/25/18 01/26/18 19:00 07:00 Intake Total 480 ml 650 ml Balance 480 ml 650 ml Intake Oral 480 ml 650 ml # Voids 5 Laboratory Tests 01/26/18 06:15: White Blood Count 4.6L, Red Blood Count 3.87L, Hemoglobin 13.4, Hematocrit 38.6 , Mean Corpuscular Volume 100H, Mean Corpuscular Hemoglobin 34.6H, Mean Corpuscular Hemoglobin Concent 34.7, Red Cell Distribution Width 12.5, Platelet Count 107#L, Mean Platelet Volume 8.1, Neutrophils (%) (Auto) 65.0, Lymphocytes (%) (Auto) 18.9L, Monocytes (%) (Auto) 12.5H, Eosinophils (%) (Auto) 1.7, Basophils (%) (Auto) 1.8, Sodium Level 134L, Potassium Level 3.3L, Chloride Level 93L, Carbon Dioxide Level 30, Anion Gap 11, Blood Urea Nitrogen 5L, Creatinine 0.6, Estimat Glomerular Filtration Rate > 60, Glucose Level 93, Calcium Level 10.2H, Total Bilirubin 1.2H, Direct Bilirubin 0.4H, Aspartate Amino Transf (AST/SGOT) 217H, Alanine Aminotransferase (ALT/SGPT) 157H, Alkaline Phosphatase 209H, Total Protein 8.3H, Albumin 3.5, Globulin 4.8, Albumin/Globulin Ratio 0.7L, Amylase Level 133H, Lipase 1181H, Hepatitis A IgM Antibody [Pending], Hepatitis B Surface Antigen [Pending], Hepatitis B Core IgM Antibody [Pending], Hepatitis C Antibody [Pending] Height (Feet): 5 Height (Inches): 2.00 Weight (Pounds): 108 General Appearance: alert EENT: normal ENT inspection Neck: normal alignment Cardiovascular: normal peripheral pulses, normal rate, regular rhythm Respiratory/Chest: chest wall non-tender, lungs clear, normal breath sounds Abdomen: normal bowel sounds, non tender, soft Extremities: normal inspection Edema: no edema noted Arm (L), no edema noted Arm (R), no edema noted Leg (L), no edema noted Leg (R), no edema noted Pedal (L), no edema noted Pedal (R), no edema noted Generalized Neurologic: responsive, motor weakness Skin: normal pigmentation, warm/dry SURYA PRICE Jan 26, 2018 14:45
[2018-01-26 16:00] VITALS: BP 115/82
--- NOTE | 2018-01-26 16:06 | GI Progress Note ---
Assessment/Plan Problems: (1) Transaminitis ICD Codes: R74.0 - Nonspecific elevation of levels of transaminase and lactic acid dehydrogenase [LDH] SNOMED: 207237094 (2) Abdominal pain ICD Codes: R10.9 - Unspecified abdominal pain SNOMED: 98673566 Qualifiers: Qualified Codes: R10.13 - Epigastric pain (3) Malnutrition ICD Codes: E46 - Unspecified protein-calorie malnutrition SNOMED: 0460362 (4) Acute pancreatitis ICD Codes: K85.90 - Acute pancreatitis without necrosis or infection, unspecified SNOMED: 514425179 Status: unchanged Status Narrative Discussed with Dr. Holt. Assessment/Plan MRCP reviewed >> unremarkable Assessment - pancreatitis Recommendations fu surgical recs for possible allison will order coags amlabs to determine Discriminant function for alcoholic hepatitis ROXANNE, IGg r/o autoimmune fu hepatitis panel fu labs, amylase/lipase pt not ready dc today Subjective Gastrointestinal/Abdominal: Reports: abdominal pain - improving Objective Last 24 Hour Vital Signs Date Time Temp Pulse Resp B/P (MAP) Pulse Ox O2 Delivery O2 Flow Rate FiO2 01/26/18 12:00 98.3 82 19 134/81 99 Room Air 98.3 01/26/18 08:00 98.3 91 20 115/82 97 Room Air 98.3 01/26/18 04:00 98.4 73 20 123/68 98 98.4 01/26/18 00:00 98.2 76 20 113/80 98 98.2 01/25/18 20:00 98.2 90 20 113/70 98 98.2 01/25/18 18:24 98.2 01/25/18 17:54 98.2 Intake and Output 01/25/18 01/26/18 19:00 07:00 Intake Total 480 ml 650 ml Balance 480 ml 650 ml Intake Oral 480 ml 650 ml # Voids 5 Laboratory Tests Test 01/26/18 06:15 White Blood Count 4.6 K/UL (4.8-10.8) L Red Blood Count 3.87 M/UL (4.20-5.40) L Hemoglobin 13.4 G/DL (12.0-16.0) Hematocrit 38.6 % (37.0-47.0) Mean Corpuscular Volume 100 FL (80-99) H Mean Corpuscular Hemoglobin 34.6 PG (27.0-31.0) H Mean Corpuscular Hemoglobin Concent 34.7 G/DL (32.0-36.0) Red Cell Distribution Width 12.5 % (11.6-14.8) Platelet Count 107 K/UL (150-450) #L Mean Platelet Volume 8.1 FL (6.5-10.1) Neutrophils (%) (Auto) 65.0 % (45.0-75.0) Lymphocytes (%) (Auto) 18.9 % (20.0-45.0) L Monocytes (%) (Auto) 12.5 % (1.0-10.0) H Eosinophils (%) (Auto) 1.7 % (0.0-3.0) Basophils (%) (Auto) 1.8 % (0.0-2.0) Sodium Level 134 MMOL/L (136-145) L Potassium Level 3.3 MMOL/L (3.5-5.1) L Chloride Level 93 MMOL/L (98-107) L Carbon Dioxide Level 30 MMOL/L (21-32) Anion Gap 11 mmol/L (5-15) Blood Urea Nitrogen 5 mg/dL (7-18) L Creatinine 0.6 MG/DL (0.55-1.30) Estimat Glomerular Filtration Rate > 60 mL/min (>60) Glucose Level 93 MG/DL (74-106) Calcium Level 10.2 MG/DL (8.5-10.1) H Total Bilirubin 1.2 MG/DL (0.2-1.0) H Direct Bilirubin 0.4 MG/DL (0.0-0.3) H Aspartate Amino Transf (AST/SGOT) 217 U/L (15-37) H Alanine Aminotransferase (ALT/SGPT) 157 U/L (12-78) H Alkaline Phosphatase 209 U/L (46-116) H Total Protein 8.3 G/DL (6.4-8.2) H Albumin 3.5 G/DL (3.4-5.0) Globulin 4.8 g/dL Albumin/Globulin Ratio 0.7 (1.0-2.7) L Amylase Level 133 U/L (25-115) H Lipase 1181 U/L (73-393) H Hepatitis A IgM Antibody Pending Hepatitis B Surface Antigen Pending Hepatitis B Core IgM Antibody Pending Hepatitis C Antibody Pending Height (Feet): 5 Height (Inches): 2.00 Weight (Pounds): 108 General Appearance: WD/WN, no apparent distress, alert Cardiovascular: normal rate Respiratory/Chest: normal breath sounds, no respiratory distress Abdominal Exam: normal bowel sounds, non tender, soft Extremities: normal range of motion, non-tender Yaritza Marroquin N.P. Jan 26, 2018 16:06
[2018-01-26 20:00] VITALS: BP 104/72
[2018-01-27] VITALS: BP 117/76
[2018-01-27 04:00] VITALS: BP 124/89
[2018-01-27] MEDS: Morphine Sulfate 2mg/ml Inj IVP PRN ×3 (06:12→18:38)
[2018-01-27 07:06] LABS: HEMATOCRIT 35.8 % (37.0-47.0); HEMOGLOBIN 12.5 G/DL (12.0-16.0); MEAN CORPUSCULAR VOLUME 100 FL (80-99); PLATELET COUNT 142 K/UL (150-450); RED BLOOD COUNT 3.59 M/UL (4.20-5.40); RED CELL DISTRIBUTION WIDTH 12.4 % (11.6-14.8); WHITE BLOOD COUNT 4.1 K/UL (4.8-10.8)
[2018-01-27 07:22] LABS: ALANINE AMINOTRANSFERASE 210 U/L (12-78); ALBUMIN 3.4 G/DL (3.4-5.0); ALBUMIN/GLOBULIN RATIO 0.7 (1.0-2.7); ALKALINE PHOSPHATASE 206 U/L (46-116); AMYLASE 123 U/L (25-115); ANION GAP 9 mmol/L (5-15); ASPARTATE AMINO TRANSFERASE 258 U/L (15-37); BILIRUBIN,TOTAL 1.1 MG/DL (0.2-1.0); BLOOD UREA NITROGEN 5 mg/dL (7-18); CALCIUM 10.2 MG/DL (8.5-10.1); CARBON DIOXIDE 32 MMOL/L (21-32); CHLORIDE 94 MMOL/L (98-107); CREATININE 0.5 MG/DL (0.55-1.30); POTASSIUM 3.4 MMOL/L (3.5-5.1); SODIUM 134 MMOL/L (136-145)
[2018-01-27 07:26] LABS: BILIRUBIN,DIRECT 0.4 MG/DL (0.0-0.3)
[2018-01-27 08:00] VITALS: BP 108/78
[2018-01-27] MEDS: Pantoprazole Inj IVP SCH (09:00)
[2018-01-27] MEDS: Enoxaparin 30mg Inj SUBQ SCH (09:00)
[2018-01-27] MEDS: Docusate 100mg cap ORAL SCH (09:00)
--- NOTE | 2018-01-27 09:54 | General Progress Note ---
Assessment/Plan Assessment/Plan #. Severe pain, has been seen by pain management, Dr. Shania Fragoso and Navneet. --> The patient will be increased on morphine 2 mg IV q.4 h. and Ambien as needed. --> Pt feeling better and pain has improved. #. Pancreatitis, likely explaining the patient's abdominal pain. --> Continue to closely monitor. The patient has had this before. --> Currently NPO. Potentially to obtain MRCP. LFTs are trending. --> She has been seen by Gastroenterology and Surgical Service and Pain Management. MRCP has been ordered again. #. Transaminitis. --> Continue to closely monitor for improvement. Gallbladder sludge noted with tiny stones. #. Nausea and vomiting. Continue Zofran and Pepcid. #. Thrombocytopenia. --> Improving. #. Leukopenia. Subjective Date patient seen: Jan 26, 2018 Constitutional: Denies: no symptoms, chills, diaphoresis, fever, malaise, weakness, other HEENT: Denies: no symptoms, eye pain, blurred vision, tearing, double vision, ear pain, ear discharge, nose pain, nose congestion, throat pain, throat swelling, mouth pain, mouth swelling, other Cardiovascular: Denies: no symptoms, chest pain, edema, irregular heart rate, lightheadedness, palpitations, syncope, other Respiratory: Denies: no symptoms, cough, orthopnea, shortness of breath, SOB with excertion, SOB at rest, sputum, stridor, wheezing, other Gastrointestinal/Abdominal: Denies: no symptoms, abdomen distended, abdominal pain, black stools, tarry stools, blood in stool, constipated, diarrhea, difficulty swallowing, nausea, poor appetite, poor fluid intake, rectal bleeding , vomiting, other Genitourinary: Denies: no symptoms, burning, discharge, frequency, flank pain, hematuria, incontinence, pain, urgency, other Neurologic/Psychiatric: Denies: no symptoms, anxiety, depressed, emotional problems, headache, numbness, paresthesia, pre-existing deficit, seizure, tingling, tremors, weakness, other Hematologic/Lymphatic: Reports: anemia Allergies: Coded Allergies: PEANUT (Unverified Allergy, Unknown, 07/26/14) SESAME OIL (Unverified Allergy, Unknown, 2/10/17) Subjective Platelets improved. Pain improved. Feeling better. Objective Last 24 Hour Vital Signs Date Time Temp Pulse Resp B/P (MAP) Pulse Ox O2 Delivery O2 Flow Rate FiO2 01/27/18 08:00 97.9 93 18 108/78 97 Room Air 97.9 01/27/18 04:00 98.4 83 21 124/89 98 98.4 01/27/18 00:00 98.1 76 20 117/76 99 98.1 01/26/18 20:00 98.2 82 20 104/72 100 98.2 01/26/18 16:00 98.0 92 21 115/82 99 Room Air 98.0 01/26/18 12:00 98.3 82 19 134/81 99 Room Air 98.3 Intake and Output 01/26/18 01/27/18 19:00 07:00 Intake Total 960 ml Balance 960 ml Intake Oral 960 ml # Voids 5 Laboratory Tests 01/27/18 05:50: White Blood Count 4.1L, Red Blood Count 3.59L, Hemoglobin 12.5, Hematocrit 35.8L , Mean Corpuscular Volume 100H, Mean Corpuscular Hemoglobin 34.8H, Mean Corpuscular Hemoglobin Concent 34.9, Red Cell Distribution Width 12.4, Platelet Count 142L, Mean Platelet Volume 7.7, Neutrophils (%) (Auto) , Lymphocytes (%) ( Auto) , Monocytes (%) (Auto) , Eosinophils (%) (Auto) , Basophils (%) (Auto) , Neutrophils % (Manual) [Pending], Lymphocytes % (Manual) [Pending], Platelet Estimate [Pending], Platelet Morphology [Pending], Prothrombin Time 10.6, Prothromb Time International Ratio 1.0, Activated Partial Thromboplast Time 26, Sodium Level 134L, Potassium Level 3.4L, Chloride Level 94L, Carbon Dioxide Level 32, Anion Gap 9, Blood Urea Nitrogen 5L, Creatinine 0.5L, Estimat Glomerular Filtration Rate > 60, Glucose Level 95, Calcium Level 10.2H, Total Bilirubin 1.1H, Direct Bilirubin 0.4H, Aspartate Amino Transf (AST/SGOT) 258H, Alanine Aminotransferase (ALT/SGPT) 210H, Alkaline Phosphatase 206H, Total Protein 8.0, Albumin 3.4, Globulin 4.6, Albumin/Globulin Ratio 0.7L, Amylase Level 123H, Lipase 1153H, Immunoglobulin G [Pending], Immunoglobulin G1 [Pending ], Immunoglobulin G2 [Pending], Immunoglobulin G3 [Pending], Immunoglobulin G4 [ Pending] Height (Feet): 5 Height (Inches): 2.00 Weight (Pounds): 108 Respiratory/Chest: decreased breath sounds Abdomen: soft Mick Fontana Jan 27, 2018 09:54
--- NOTE | 2018-01-27 10:53 | GI Progress Note ---
Assessment/Plan Problems: (1) Transaminitis ICD Codes: R74.0 - Nonspecific elevation of levels of transaminase and lactic acid dehydrogenase [LDH] SNOMED: 906546508 (2) Abdominal pain ICD Codes: R10.9 - Unspecified abdominal pain SNOMED: 67674702 Qualifiers: Qualified Codes: R10.13 - Epigastric pain (3) Malnutrition ICD Codes: E46 - Unspecified protein-calorie malnutrition SNOMED: 4340774 (4) Acute pancreatitis ICD Codes: K85.90 - Acute pancreatitis without necrosis or infection, unspecified SNOMED: 652381498 Status: stable Status Narrative Discussed with Dr. Holt. Assessment/Plan MRCP reviewed >> unremarkable Discriminant function for alcoholic hepatitis calculated >> defer glucocorticosteroid treatment hepatitis panel negative Assessment - severe pancreatitis Recommendations fu surgical recs fu IGg r/o autoimmune fu labs, amylase/lipase adv diet Subjective Gastrointestinal/Abdominal: Reports: abdominal pain - improved Objective Last 24 Hour Vital Signs Date Time Temp Pulse Resp B/P (MAP) Pulse Ox O2 Delivery O2 Flow Rate FiO2 01/27/18 08:00 97.9 93 18 108/78 97 Room Air 97.9 01/27/18 04:00 98.4 83 21 124/89 98 98.4 01/27/18 00:00 98.1 76 20 117/76 99 98.1 01/26/18 20:00 98.2 82 20 104/72 100 98.2 01/26/18 16:00 98.0 92 21 115/82 99 Room Air 98.0 01/26/18 12:00 98.3 82 19 134/81 99 Room Air 98.3 Intake and Output 01/26/18 01/27/18 19:00 07:00 Intake Total 960 ml Balance 960 ml Intake Oral 960 ml # Voids 5 Laboratory Tests Test 01/27/18 05:50 White Blood Count 4.1 K/UL (4.8-10.8) L Red Blood Count 3.59 M/UL (4.20-5.40) L Hemoglobin 12.5 G/DL (12.0-16.0) Hematocrit 35.8 % (37.0-47.0) L Mean Corpuscular Volume 100 FL (80-99) H Mean Corpuscular Hemoglobin 34.8 PG (27.0-31.0) H Mean Corpuscular Hemoglobin Concent 34.9 G/DL (32.0-36.0) Red Cell Distribution Width 12.4 % (11.6-14.8) Platelet Count 142 K/UL (150-450) L Mean Platelet Volume 7.7 FL (6.5-10.1) Neutrophils (%) (Auto) % (45.0-75.0) Lymphocytes (%) (Auto) % (20.0-45.0) Monocytes (%) (Auto) % (1.0-10.0) Eosinophils (%) (Auto) % (0.0-3.0) Basophils (%) (Auto) % (0.0-2.0) Differential Total Cells Counted 100 Neutrophils % (Manual) 55 % (45-75) Lymphocytes % (Manual) 26 % (20-45) Monocytes % (Manual) 11 % (1-10) H Eosinophils % (Manual) 7 % (0-3) H Basophils % (Manual) 1 % (0-2) Band Neutrophils 0 % (0-8) Platelet Estimate Decreased L Platelet Morphology Normal Macrocytosis 1+ Prothrombin Time 10.6 SEC (9.30-11.50) Prothromb Time International Ratio 1.0 (0.9-1.1) Activated Partial Thromboplast Time 26 SEC (23-33) Sodium Level 134 MMOL/L (136-145) L Potassium Level 3.4 MMOL/L (3.5-5.1) L Chloride Level 94 MMOL/L (98-107) L Carbon Dioxide Level 32 MMOL/L (21-32) Anion Gap 9 mmol/L (5-15) Blood Urea Nitrogen 5 mg/dL (7-18) L Creatinine 0.5 MG/DL (0.55-1.30) L Estimat Glomerular Filtration Rate > 60 mL/min (>60) Glucose Level 95 MG/DL (74-106) Calcium Level 10.2 MG/DL (8.5-10.1) H Total Bilirubin 1.1 MG/DL (0.2-1.0) H Direct Bilirubin 0.4 MG/DL (0.0-0.3) H Aspartate Amino Transf (AST/SGOT) 258 U/L (15-37) H Alanine Aminotransferase (ALT/SGPT) 210 U/L (12-78) H Alkaline Phosphatase 206 U/L (46-116) H Total Protein 8.0 G/DL (6.4-8.2) Albumin 3.4 G/DL (3.4-5.0) Globulin 4.6 g/dL Albumin/Globulin Ratio 0.7 (1.0-2.7) L Amylase Level 123 U/L (25-115) H Lipase 1153 U/L (73-393) H Immunoglobulin G Pending Immunoglobulin G1 Pending Immunoglobulin G2 Pending Immunoglobulin G3 Pending Immunoglobulin G4 Pending Height (Feet): 5 Height (Inches): 2.00 Weight (Pounds): 108 General Appearance: WD/WN, no apparent distress, alert Cardiovascular: normal rate Respiratory/Chest: normal breath sounds, no respiratory distress Abdominal Exam: normal bowel sounds, non tender, soft Extremities: normal range of motion, non-tender Yaritza Marroquin N.P. Jan 27, 2018 10:53
[2018-01-27 12:00] VITALS: BP 108/71
--- NOTE | 2018-01-27 14:13 | General Progress Note ---
Assessment/Plan Problem List: (1) Hypokalemia ICD Codes: E87.6 - Hypokalemia SNOMED: 24413490 (2) Acute pancreatitis ICD Codes: K85.90 - Acute pancreatitis without necrosis or infection, unspecified SNOMED: 585313728 Status: stable, progressing, tolerating diet Assessment/Plan diet sydnee dc if clear after ct Subjective Constitutional: Reports: weakness Allergies: Coded Allergies: PEANUT (Unverified Allergy, Unknown, 07/26/14) SESAME OIL (Unverified Allergy, Unknown, 12/26/16) All Systems: reviewed and negative except above Subjective calm ate slightly pending ct Objective Last 24 Hour Vital Signs Date Time Temp Pulse Resp B/P (MAP) Pulse Ox O2 Delivery O2 Flow Rate FiO2 01/27/18 12:00 97.7 81 20 108/71 99 97.7 01/27/18 08:00 97.9 93 18 108/78 97 Room Air 97.9 01/27/18 04:00 98.4 83 21 124/89 98 98.4 01/27/18 00:00 98.1 76 20 117/76 99 98.1 01/26/18 20:00 98.2 82 20 104/72 100 98.2 01/26/18 16:00 98.0 92 21 115/82 99 Room Air 98.0 Intake and Output 01/26/18 01/27/18 19:00 07:00 Intake Total 960 ml Balance 960 ml Intake Oral 960 ml # Voids 5 Laboratory Tests 01/27/18 05:50: White Blood Count 4.1L, Red Blood Count 3.59L, Hemoglobin 12.5, Hematocrit 35.8L , Mean Corpuscular Volume 100H, Mean Corpuscular Hemoglobin 34.8H, Mean Corpuscular Hemoglobin Concent 34.9, Red Cell Distribution Width 12.4, Platelet Count 142L, Mean Platelet Volume 7.7, Neutrophils (%) (Auto) , Lymphocytes (%) ( Auto) , Monocytes (%) (Auto) , Eosinophils (%) (Auto) , Basophils (%) (Auto) , Differential Total Cells Counted 100, Neutrophils % (Manual) 55, Lymphocytes % ( Manual) 26, Monocytes % (Manual) 11H, Eosinophils % (Manual) 7H, Basophils % ( Manual) 1, Band Neutrophils 0, Platelet Estimate DecreasedL, Platelet Morphology Normal, Macrocytosis 1+, Prothrombin Time 10.6, Prothromb Time International Ratio 1.0, Activated Partial Thromboplast Time 26, Sodium Level 134L, Potassium Level 3.4L, Chloride Level 94L, Carbon Dioxide Level 32, Anion Gap 9, Blood Urea Nitrogen 5L, Creatinine 0.5L, Estimat Glomerular Filtration Rate > 60, Glucose Level 95, Calcium Level 10.2H, Total Bilirubin 1.1H, Direct Bilirubin 0.4H, Aspartate Amino Transf (AST/SGOT) 258H, Alanine Aminotransferase (ALT/SGPT) 210H, Alkaline Phosphatase 206H, Total Protein 8.0, Albumin 3.4, Globulin 4.6, Albumin/Globulin Ratio 0.7L, Amylase Level 123H, Lipase 1153H, Immunoglobulin G [Pending], Immunoglobulin G1 [Pending], Immunoglobulin G2 [Pending], Immunoglobulin G3 [Pending], Immunoglobulin G4 [ Pending] 01/27/18 12:37: Urine HCG, Qualitative Negative Height (Feet): 5 Height (Inches): 2.00 Weight (Pounds): 108 General Appearance: alert EENT: normal ENT inspection Neck: normal alignment Cardiovascular: normal peripheral pulses, normal rate, regular rhythm Respiratory/Chest: chest wall non-tender, lungs clear, normal breath sounds Abdomen: normal bowel sounds, non tender, soft Extremities: normal inspection Edema: no edema noted Arm (L), no edema noted Arm (R), no edema noted Leg (L), no edema noted Leg (R), no edema noted Pedal (L), no edema noted Pedal (R), no edema noted Generalized Neurologic: responsive Skin: normal pigmentation, warm/dry SURYA PRICE Jan 27, 2018 14:13
--- NOTE | 2018-01-27 14:35 | General Surgery Progress Note ---
General Surgery-Progress Note Subjective Symptoms: improved, pain absent, tolerating diet Additional Comments doing well. no complaints. no n/v/f/c tolerating diet. no pain. Objective Last 24 Hour Vital Signs Date Time Temp Pulse Resp B/P (MAP) Pulse Ox O2 Delivery O2 Flow Rate FiO2 01/27/18 12:00 97.7 81 20 108/71 99 97.7 01/27/18 08:00 97.9 93 18 108/78 97 Room Air 97.9 01/27/18 04:00 98.4 83 21 124/89 98 98.4 01/27/18 00:00 98.1 76 20 117/76 99 98.1 01/26/18 20:00 98.2 82 20 104/72 100 98.2 01/26/18 16:00 98.0 92 21 115/82 99 Room Air 98.0 I&O Intake and Output 01/26/18 01/27/18 19:00 07:00 Intake Total 960 ml Balance 960 ml Intake Oral 960 ml # Voids 5 Cardiovascular: RSR Respiratory: clear Abdomen: soft, flat, non-tender, present bowel sounds Extremities: no tenderness Laboratory Tests Test 01/27/18 05:50 01/27/18 12:37 White Blood Count 4.1 K/UL (4.8-10.8) L Red Blood Count 3.59 M/UL (4.20-5.40) L Hemoglobin 12.5 G/DL (12.0-16.0) Hematocrit 35.8 % (37.0-47.0) L Mean Corpuscular Volume 100 FL (80-99) H Mean Corpuscular Hemoglobin 34.8 PG (27.0-31.0) H Mean Corpuscular Hemoglobin Concent 34.9 G/DL (32.0-36.0) Red Cell Distribution Width 12.4 % (11.6-14.8) Platelet Count 142 K/UL (150-450) L Mean Platelet Volume 7.7 FL (6.5-10.1) Neutrophils (%) (Auto) % (45.0-75.0) Lymphocytes (%) (Auto) % (20.0-45.0) Monocytes (%) (Auto) % (1.0-10.0) Eosinophils (%) (Auto) % (0.0-3.0) Basophils (%) (Auto) % (0.0-2.0) Differential Total Cells Counted 100 Neutrophils % (Manual) 55 % (45-75) Lymphocytes % (Manual) 26 % (20-45) Monocytes % (Manual) 11 % (1-10) H Eosinophils % (Manual) 7 % (0-3) H Basophils % (Manual) 1 % (0-2) Band Neutrophils 0 % (0-8) Platelet Estimate Decreased L Platelet Morphology Normal Macrocytosis 1+ Prothrombin Time 10.6 SEC (9.30-11.50) Prothromb Time International Ratio 1.0 (0.9-1.1) Activated Partial Thromboplast Time 26 SEC (23-33) Sodium Level 134 MMOL/L (136-145) L Potassium Level 3.4 MMOL/L (3.5-5.1) L Chloride Level 94 MMOL/L (98-107) L Carbon Dioxide Level 32 MMOL/L (21-32) Anion Gap 9 mmol/L (5-15) Blood Urea Nitrogen 5 mg/dL (7-18) L Creatinine 0.5 MG/DL (0.55-1.30) L Estimat Glomerular Filtration Rate > 60 mL/min (>60) Glucose Level 95 MG/DL (74-106) Calcium Level 10.2 MG/DL (8.5-10.1) H Total Bilirubin 1.1 MG/DL (0.2-1.0) H Direct Bilirubin 0.4 MG/DL (0.0-0.3) H Aspartate Amino Transf (AST/SGOT) 258 U/L (15-37) H Alanine Aminotransferase (ALT/SGPT) 210 U/L (12-78) H Alkaline Phosphatase 206 U/L (46-116) H Total Protein 8.0 G/DL (6.4-8.2) Albumin 3.4 G/DL (3.4-5.0) Globulin 4.6 g/dL Albumin/Globulin Ratio 0.7 (1.0-2.7) L Amylase Level 123 U/L (25-115) H Lipase 1153 U/L (73-393) H Immunoglobulin G Pending Immunoglobulin G1 Pending Immunoglobulin G2 Pending Immunoglobulin G3 Pending Immunoglobulin G4 Pending Urine HCG, Qualitative Negative (NEGATIVE) Plan Problems: (1) Acute gallstone pancreatitis Assessment & Plan: 42F with likely acute gallstone pancreatitis. Does have social EtOH history but no heavy history. Afebrile, HD stable, labs reviewed. no leukocytosis. LFTs elevated and trending up. Lipase trending up again. MRCP without choledocholithiasis. tolerating diet. pain resolved. clinically improving despite slight elevation in lab values. with history unlikely due to gallbladder though it may be possible. need to rule out autoimmune (labs sent). hepatitis panel negative. lipids okay. fortunately pain resolved and clinically stable and well. labs as above. -diet as tolerated -CT scan A/P -okay to d/c home from surgical standpoint. can do remainder of work up as an outpatient. she is stable and clinically resolved. will get follow up labs and review findings as outpatient. office info given to patient. -will follow with recs. Miguel Valdovinos Jan 27, 2018 14:35
[2018-01-27 16:00] VITALS: BP 104/72
--- NOTE | 2018-01-27 17:03 | Diagnostic Imaging Report ---
Clinical Indication: Abdominal pain, 2 days of nausea and vomiting and epigastric and right upper quadrant abdominal pain Technique: Patient given oral contrast. IV administration nonionic contrast. Multiphasic spiral acquisitions obtained through the abdomen and pelvis. Multiplanar reconstructions were generated. Total dose length product 1040.07 mGycm. CTDIvol(s) 10.69,14.02 mGy. Dose reduction achieved using automated exposure control Comparison: December 28, 2016, also abdominal MRI dated 01/22/2018 Findings: There is somewhat unusual heterogeneity and slight enlargement of the distal body and pancreatic tail. There may be some ectasia of the upstream pancreatic duct. There is equivocal mild prominence of the head and uncinate as well as very slight heterogeneity. Fluid is seen extending slightly caudad along Gerota's fascia. The gallbladder is unremarkable. No stones or wall thickening. No biliary ductal dilatation. The liver is diffusely hypoattenuating, consistent with fatty change. No focal abnormalities. The spleen, adrenals, kidneys are unremarkable. No retroperitoneal or mesenteric mass or adenopathy. No pelvic mass or adenopathy. The bladder is equivocally mildly thick walled. No evidence of diverticulosis or diverticulitis. The appendix is normal. No small bowel wall thickening or small bowel distention. Contrast is seen to traverse the entirety of the small bowel and reached the proximal transverse colon. No free intraperitoneal fluid. Previously demonstrated pelvic fluid is no longer evident. Previously demonstrated sigmoid wall thickening is no longer evident. The included lung bases are clear. The bones are unremarkable. Impression: Heterogeneity and slight enlargement of the pancreatic body and tail also described on recent MRI, consistent with pancreatitis. There is associated fluid extending along the upper anterior pararenal space No definite evidence of gallstones or biliary ductal dilatation Fatty liver Equivocal bladder wall thickening, probably artifact of incomplete distention. Cystitis also possible. Correlate with clinical findings. The CT scanner at [facility] is accredited by the [employer] and the scans are performed using protocols designed to limit radiation exposure to as low as reasonably achievable to attain images of sufficient resolution adequate for diagnostic evaluation.
--- NOTE | 2018-01-28 12:04 | General Progress Note ---
Assessment/Plan Assessment/Plan #. Severe pain, has been seen by pain management, Dr. Shania Fragoso and Navneet. --> The patient will be increased on morphine 2 mg IV q.4 h. and Ambien as needed. --> Pt feeling better and pain has improved. #. Pancreatitis, likely explaining the patient's abdominal pain. --> Continue to closely monitor. The patient has had this before. --> Currently NPO. Potentially to obtain MRCP. LFTs are trending. --> She has been seen by Gastroenterology and Surgical Service and Pain Management. MRCP has been ordered again. #. Transaminitis. --> Continue to closely monitor for improvement. Gallbladder sludge noted with tiny stones. #. Nausea and vomiting. Continue Zofran and Pepcid. #. Thrombocytopenia. --> Resolved #. Leukopenia. Subjective Date patient seen: Jan 27, 2018 Constitutional: Denies: no symptoms, chills, diaphoresis, fever, malaise, weakness, other HEENT: Denies: no symptoms, eye pain, blurred vision, tearing, double vision, ear pain, ear discharge, nose pain, nose congestion, throat pain, throat swelling, mouth pain, mouth swelling, other Cardiovascular: Denies: no symptoms, chest pain, edema, irregular heart rate, lightheadedness, palpitations, syncope, other Respiratory: Denies: no symptoms, cough, orthopnea, shortness of breath, SOB with excertion, SOB at rest, sputum, stridor, wheezing, other Gastrointestinal/Abdominal: Denies: no symptoms, abdomen distended, abdominal pain, black stools, tarry stools, blood in stool, constipated, diarrhea, difficulty swallowing, nausea, poor appetite, poor fluid intake, rectal bleeding , vomiting, other Genitourinary: Denies: no symptoms, burning, discharge, frequency, flank pain, hematuria, incontinence, pain, urgency, other Neurologic/Psychiatric: Denies: no symptoms, anxiety, depressed, emotional problems, headache, numbness, paresthesia, pre-existing deficit, seizure, tingling, tremors, weakness, other Allergies: Coded Allergies: PEANUT (Unverified Allergy, Unknown, 07/26/14) SESAME OIL (Unverified Allergy, Unknown, 12/26/16) Subjective Afebrile. No chills. Pending discharge. Objective Last 24 Hour Vital Signs Date Time Temp Pulse Resp B/P (MAP) Pulse Ox O2 Delivery O2 Flow Rate FiO2 01/27/18 16:00 97.3 65 20 104/72 99 Room Air 97.3 01/27/18 12:00 97.7 81 20 108/71 99 97.7 Intake and Output 01/27/18 01/28/18 19:00 07:00 Intake Total 300 ml Balance 300 ml Intake Oral 300 ml # Voids 4 Laboratory Tests 01/27/18 12:37: Urine HCG, Qualitative Negative Height (Feet): 5 Height (Inches): 2.00 Weight (Pounds): 108 General Appearance: no apparent distress Respiratory/Chest: lungs clear Abdomen: soft Mick Fontana Jan 28, 2018 12:03
--- NOTE | 2018-01-28 15:51 | Discharge Summary ---
Discharge Summary Hospital Course Date of Admission Jan 21, 2018 at 16:00 Date of Discharge Jan 27, 2018 at 20:35 Admitting Diagnosis pancreatitis HPI Raiza Maynard is a 42 year old female who was admitted on Jan 21, 2018 at 16:00 for Pancreatitis Hospital Course [id number] Discharge Discharge Disposition Patient was discharged to Home (01) Discharge Diagnoses: Stephanie Fermin NP Jan 28, 2018 15:51
--- NOTE | 2018-01-29 03:45 | Discharge Summary 2 SIG ---
DATE OF ADMISSION: 01/21/2018 DATE OF DISCHARGE: 01/27/2018 CONSULTANTS: 1. Mick Fontana M.D. 2. Miguel Valdovinos M.D. 3. Villa Holt M.D. 4. Shania Fragoso M.D. BRIEF HOSPITAL COURSE: The patient is a 42-year-old female, who came from home with medical history significant for chronic pain and hypertension, presented to ED complaining of nausea and vomiting for two days. Abdominal pain was radiating to the back and to the right upper quadrant. There was no associated diarrhea. No previous abdominopelvic surgeries. No sick contacts. On evaluation at ED, blood work showed lipase 8538. Liver function tests and bilirubin were elevated. There was no leukocytosis noted. Abdominal ultrasound showed gallbladder sludge with coarse hepatic echogenicity. There was concern for gallstone pancreatitis. Surgical evaluation was done. Urine toxicology was positive for opiates. She was placed on NPO with IV fluids. She was given pain management. MRCP showed no obvious biliary dilatation. Pain was improving, however, persisted. Lipase downtrended. Bilirubin downtrended. She was eventually started on clear liquid diet. She had episodes of hypokalemia and was given potassium supplements. Diet was advanced. She was tolerating diet well. Hepatitis panel was negative and pain eventually resolved. Abdominal and pelvic CT showed heterogenous with slight enlargement of pancreatic body and tail. She was tolerating diet well. She was advised to follow up as outpatient. FINAL DIAGNOSES: 1. Abdominal pain secondary to acute pancreatitis. 2. Hypokalemia. 3. Transaminitis. 4. Leukopenia. 5. Nausea and vomiting. DISPOSITION: The patient was discharged home. DISCHARGE INSTRUCTIONS: Follow up with Dr. Valdovinos as outpatient. His office address was given prior to discharge. Simon Gates D.O. I have been assigned to dictate discharge summary on this account and I was not involved in the patient's management. Stpehanie Fermin N.P. DR: Shanae JOB#: [id number] CC: ANDRESSA
== END 2018-01-27 20:35 | disposition home or self-care (01) | DRG 440 ==
LOC: EDBD → MERGE 13:54 → EMR 14:35 → 4E 16:00 → EDBEDREQ 17:59
DX: K85.90 Acute pancreatitis without necrosis or infection, unspecified (principal); D69.6 Thrombocytopenia, unspecified; I10 Essential (primary) hypertension; E87.6 Hypokalemia; R74.0 Nonspecific elevation of levels of transaminase and lactic acid dehydrogenase [LDH]; K85.10 Biliary acute pancreatitis without necrosis or infection
CPT/HCPCS: 36415; 71045; 74177; 74181; 76700; 80053; 80061; 80307; 81003; 81025; 82150; 82248; 82784; 82787; 83605; 83690; 84702; 85007; 85025; 85610; 85730; 86705; 86709; 86803; 87340; 93005; 99285; J2405; J8499